=== PATIENT | female | born 1995 | race Caucasian/White ===

== ENCOUNTER 2022-07-30 10:27 | Emergency (ER) | payer MEDICARE, SELFPAY ==
[2022-07-30 10:46] VITALS: BP 117/68; PULSE 95; RESP 16; TEMP 36.7; O2SAT 100; BMI 29.2
--- NOTE | 2022-07-30 11:02 | XRR_ITS ---
PROCEDURE INFORMATION: Exam: XR Chest Exam date and time: 07/30/2022 12:20 PM Age: 27 years old Clinical indication: Cough and fever TECHNIQUE: Imaging protocol: Radiologic exam of the chest. Views: 1 view. COMPARISON: No relevant prior studies available. FINDINGS: Lungs: Unremarkable. No consolidation. Pleural spaces: Unremarkable. No pleural effusion. No pneumothorax. Heart/Mediastinum: Unremarkable. No cardiomegaly. Bones/joints: Unremarkable. XR/XR chest 1V portable [id number] IMPRESSION: No acute findings.
--- NOTE | 2022-07-30 11:26 | ED_ITS ---
HPI - Fever General: Chief Complaint: Fever Stated Complaint: throat hurts Time Seen by Provider: 07/30/22 11:00 History of Present Illness: Patient is a 27-year-old female that comes to the ED with fever. She is started having upper respiratory symptoms approximately 2 days ago. She reports having sore throat, dry cough, nasal drainage and congestion, headache, nausea and body aches. She had 1 episode of emesis today. Last night she had a temperature of 100.6. She says her son had symptoms like this earlier this week. Associated symptoms: Reports nasal congestion, nausea and vomiting; Deny abdominal pain, flank pain, chills, chest pain, diarrhea, dysuria or headache(s) Review of Systems Const: Reports: fever(s) and body aches; Denies: chills or fatigue Eyes: Denies: change in vision or eye discomfort ENMT: Reports: throat pain, nasal discharge and nasal congestion; Denies: odynophagia Card: Denies: chest pain, palpitations, edema, swelling of feet/ankles, dyspnea on exertion or orthopnea Resp: Reports: non-productive cough; Denies: dyspnea or productive cough GI: Reports: nausea and vomiting; Denies: abdominal pain, diarrhea, constipation or hematochezia : Denies: flank pain, dysuria or hematuria Musc: Denies: neck pain, back pain or extremity swelling Skin/Breast: Denies: rash or new lesions Neuro: Denies: headache(s), numbness in extremities or weakness in extremities PFS ED PFSH: Medical History No pertinent family history Surgical History No pertinent past surgical history Physical Exam Const: COMMON NORMALS: no acute distress, patient oriented x3 and alert GENERAL APPEARANCE: cooperative and comfortable HENMT: COMMON NORMALS: normocephalic HEAD & SCALP: normocephalic MOUTH: Normal oral and palatal mucosa present THROAT: posterior oropharynx normal and uvula midline Neck/C-Spine: COMMON NORMALS: supple GENERAL: Yes normal visual inspection Resp: COMMON NORMALS: normal respiratory effort, No retractions, No use of accessory muscles and clear to auscultation bilaterally AUSCULTATION: clear to auscultation bilaterally Cardio: COMMON NORMALS: regular rate, regular rhythm, S1 normal heart sound present, S2 normal heart sound present, No gallops present (Cardio), No clicks present (Cardio), No murmurs present (Cardio) and Peripheral pulses 2+ throughout RATE: regular rate RHYTHM: regular rhythm HEART SOUNDS: S1 normal heart sound present and S2 normal heart sound present PERIPHERAL PULSES: Peripheral pulses 2+ throughout GI: COMMON NORMALS: Normal to inspection, nondistended, normoactive bowel sounds present, Soft to palpation, non-tender and no masses PALPATION: Yes Soft to palpation : COMMON NORMALS: Yes no CVA tenderness BLADDER/KIDNEY EXAM: Yes no CVA tenderness Back/Pelvis: COMMON NORMALS: no CVA tenderness Extremity: COMMON NORMALS: normal to inspection Neuro: COMMON NORMALS: patient oriented x3 SENSORIUM/ORIENTATION: Yes alert GAIT: Yes Normal gait present Skin: GENERAL SKIN EXAM: dry skin Course Vital Signs: Vital signs: Vital Signs Temperature 98.0 F 07/30/22 10:46 Pulse Rate 95 07/30/22 10:46 Respiratory Rate 16 07/30/22 10:46 Blood Pressure 117/68 07/30/22 10:46 Pulse Oximetry 100 07/30/22 10:46 Oxygen Delivery Me thod 07/30/22 10:46 MDM - Fever Medical Decision Making Patient is a 27-year-old female that comes to the ED with fever. She is started having upper respiratory symptoms approximately 2 days ago. She reports having sore throat, dry cough, nasal drainage and congestion, headache, nausea and body aches. She had 1 episode of emesis today. Last night she had a temperature of 100.6. She says her son had symptoms like this earlier this week. Vital stable. Exam of patient is benign. Chest x-ray showed no acute findings. Influenza, COVID and strep are all negative. She is diagnosed with viral upper respiratory infection and was discharged home. Given this awareness of her sore throat syndrome with a prescription for Augmentin and then some Zofran for nause a. Told to follow-up with her PCP within the next week for reevaluation. Patient understood and agreed with plan. Lab Data I reviewed the patient's lab results. Radiology Impressions Chest X-Ray 07/30/22 11:02 IMPRESSION: No acute findings. Laboratory Results Influenza Type A Ag negative (Negative) 07/30/22 11:17 Influenza Type B Ag negative (Negative) 07/30/22 11:17 SARS-CoV-2 Ag (Rapid) Negative (Negative) 07/30/22 11:17 Group A Strep Rapid Negative (Negative) 07/30/22 11:17 Discharge Plan Discharge Patient Disposition: Home Clinical Impression: Viral URI Condition: Stable Prescriptions: New amoxicillin-pot clavulanate 500-125 mg tablet 1 tab PO BID 7 Days Qty: 14 0RF ondansetron 4 mg tablet,disintegrating 4 mg PO Q8H PRN (Reason: nausea and vomiting) Qty: 20 0RF Discharge Orders: Discharge ED (Routine); Ordered 07/30/22 Ordered By: Farooq Franklin Discharge Diet: Regular Discharge Activity: Increase activity as tolerated Patient Instructions: Upper Respiratory Infection (DC) Activity Restrictions/Additional Instructions: Follow-up with medical provider as directed in the next 7 to 10 days for reevaluation. Take medications as prescribed. Return to the ER or your medical provider if condition worsens. Please read and understand discharge instructions. Thank you for choosing [facility] for your healthcare needs today. Please realize this is an emergency room and that we are providing you with a medical screening exam and this may not be complete and all inclusive of all the testing and or work up that you may need to determine your ailment or severity of your illness. It is very important that you follow up as instructed or that you return to the Emergency Department should you have concerns or if your condition changes or worsens in any way. Coding Level of Care Code ED [employer] for Benito Lewis Exam Comprehensive
[2022-07-30 11:38] LABS: Rapid Strep A Test Negative (Negative)
[2022-07-30 11:47] LABS: Influenza A by IFA negative (Negative); Influenza B by IFA negative (Negative)
[2022-07-30 12:08] LABS: SARS Covid-2 Antigen Negative (Negative)
[2022-07-30] MEDS: ondansetron 4 MG Tablet PO (12:39)
[2022-07-30] MEDS: acetaminophen 500 mg Tablet 1000 MG PO (12:39)
== END 2022-07-30 12:40 | disposition home or self-care (01) ==
PROVIDERS: Emergency Provider Physician Assistant
DX: J06.9 Acute upper respiratory infection, unspecified (principal); Z20.822 Contact with and (suspected) exposure to COVID-19
CPT/HCPCS: 71045; 87081; 87426; 87804; 87880; 99284; Q0162

== ENCOUNTER → 2023-05-12 16:00 | Outpatient (BNVA) | payer MEDICARE, SELFPAY | PROVIDERS: Visit Provider Registered Nurse Neonatal Intensive Care | DX: R10.2 Pelvic and perineal pain (principal); N92.6 Irregular menstruation, unspecified | CPT/HCPCS: 81000; 81025; 87077; 87086; 87184; 87491; 87591 ==

== ENCOUNTER 2024-05-28 09:38 | Emergency (ER) | payer MEDICARE, SELFPAY ==
[2024-05-28 09:39] VITALS: BP 115/74; PULSE 75; RESP 16; TEMP 37.1; O2SAT 97; BMI 27.4
[2024-05-28 09:54] LABS: Basophils % 0.3 %; Eosinophils # 0.1 10^3/uL (0.0-0.8); Eosinophils % 1.4 %; Hematocrit 43.8 % (36-47); Lymphocytes # 1.4 10^3/uL (0.8-4.8); Lymphocytes % 20.8 %; Mean Corpuscular HGB Conc 33.3 g/dL (30-55); Mean Corpuscular Hemoglobin 29.7 pg (27-33); Mean Platelet Volume 11.3 fL (7.4-10.4); Monocytes # 0.5 10^3/uL (0.2-0.9); Monocytes % 7.6 %; Neutrophils # 4.82 10^3/uL (1.8-7.7); Neutrophils % 69.6 %; Nucleated Red Blood Cells % 0 %; Platelet Count 253 10^3/cmm (157-399); Red Blood Count 4.92 10^6/uL (3.85-5.65); Red Cell Distribution Width 13.2 % (12.1-15.1); White Blood Count 6.93 10^3/uL (3.29-11.43)
--- NOTE | 2024-05-28 10:10 | CTR_ITS ---
PROCEDURE INFORMATION: Exam: CT Abdomen And Pelvis With Contrast Exam date and time: 05/28/2024 11:40 AM Age: 29 years old Clinical indication: Abdominal pain; Localized; Right lower quadrant (rlq); Additional info: Reported abdominal pain on the right side TECHNIQUE: Imaging protocol: Computed tomography of the abdomen and pelvis with contrast. Radiation optimization: All CT scans at this facility use at least one of these dose optimization techniques: automated exposure control; mA and/or kV adjustment per patient size (includes targeted exams where dose is matched to clinical indication); or iterative reconstruction. Contrast material: OMNI 350; Contrast volume: 100 ml; Contrast route: INTRAVENOUS (IV); COMPARISON: CR XR chest 1V portable [id number] 07/30/2022 12:20 PM RADIATION DOSE METRICS: Total DLP (mGy-cm): 464.93 FINDINGS: Liver: Normal. No mass. Gallbladder and biliary ducts: Normal. No calcified stones. No ductal dilation. Pancreas: Normal. No ductal dilation. Spleen: Normal. No splenomegaly. Adrenal glands: Bilateral adrenal calcification without mass may represent chronic sequela of prior hemorrhage or tuberculosis. Kidneys and ureters: Normal. No hydronephrosis. Stomach and bowel: No bowel dilatation to suggest obstruction. No evidence of mucosal thickening. Appendix: No evidence of appendicitis. Intraperitoneal space: Small volume free pelvic fluid is likely physiologic. No free air or focal well organized fluid collection. Vasculature: Unremarkable. No abdominal aortic aneurysm. Lymph nodes: Unremarkable. No enlarged lymph nodes. Urinary bladder: Unremarkable as visualized. Reproductive: Crenulated left ovarian corpus luteum. Otherwise unremarkable as visualized. Bones/joints: No acute fracture. Slight dextroconvex spinal curvature. Mild degenerative changes along the spine. Mildly expansile fluid density at the sacral spinal canal with sacral remodeling greatest at the S3 level. Soft tissues: Small fat containing umbilical hernia. CT/CT abdomen pelvis w con* [id number] IMPRESSION: 1. No acute findings. Specifically, no evidence of acute appendicitis or other findings to explain right lower quadrant pain. 2. Mildly expansile fluid density at the sacral spinal canal with sacral remodeling greatest at the S3 level. Consider nonemergent MRI. 3. Additional chronic and incidental findings as above, to include bilateral adrenal calcification and crenulated left ovarian corpus luteum with small volume free pelvic fluid that is likely physiologic.
[2024-05-28 10:12] LABS: Alanine Aminotransferase 31 U/L (0-33); Albumin Level 4.4 g/dL (3.5-5.2); Alkaline Phosphatase 76 U/L (35-105); Anion Gap 15.7 (5-19); Aspartate Amino Transferase 27 U/L (0-32); Blood Urea Nitrogen 15 mg/dL (6-20); Calcium 9.3 mg/dL (8.5-10.5); Carbon Dioxide 24 mmol/L (22-29); Chloride 104 mmol/L (98-107); Creatinine Clr Calc Pharmacy 79.5889; Globulin 3.5 g/dL (1.3-4.6); Glomerular Filtration Rate 64.7 mL/min (90-130); Glucose 98 mg/dL (65-115); Lipase 26 U/L (13-60); Osmolality Calculated 291 mOsm/kg (285-295); Potassium 3.7 mmol/L (3.5-5.1); Sodium 140 mmol/L (136-145); Total Bilirubin 0.4 mg/dL (0.15-1.2); Total Protein 7.9 g/dL (6.6-8.7)
--- NOTE | 2024-05-28 10:12 | ED_ITS ---
HPI - Abdominal Pain 2 General: Chief Complaint: Abdominal Pain Stated Complaint: abd pain Time Seen by Provider: 05/28/24 10:06 History of Present Illness: 29-year-old female presents emergency de partment chief complaint of having developed right-sided abdominal pain after eating a hot pocket just prior to arrival patient has no prior history of any abdominal surgeries report reports of some moderate nausea with this patient had reported recent marijuana use she denies any recent fevers or chills or any other associated symptoms. Patient was provided Toradol and Zofran prior to my arrival by EMS patient appears quite comfortable on my exam resting comfortably which is difficult to arouse for my assessment. Associated Symptoms: Reports nausea; Denies chills, fever(s) and vomiting Related Data Previous Rx's Medication Instructions Recorded nitrofurantoin 100 mg PO BID 5 days #10 caps 05/12/23 monohydrate/macrocrystals 100 mg capsule (Macrobid) doxycycline hyclate 100 mg tablet 100 mg PO BID 7 days #14 tabs 05/15/23 metronidazole 500 mg tablet 500 mg PO BID 7 days #14 tabs 05/15/23 ondansetron 4 mg disintegrating 4 mg PO TID PRN nausea and 05/28/24 tablet vomiting 4 days #14 tabs pantoprazole 40 mg tablet,delayed 40 mg PO BID 10 days #20 tabs 05/28/24 release (Protonix) Allergies Allergy/AdvReac Type Severity Reaction Status Date / Time No Known Allergies Allergy Verified 05/12/23 15:58 Review of Systems 2 General: Reports: 10 or more systems reviewed and unremarkable except in HPI and below Const: Denies: fever(s), chills, fatigue or malaise Eyes: Denies: change in vision or blurry vision Card: Denies: chest pain or palpitations Resp: Denies: dyspnea or productive cough GI: Reports: abdominal pain and nausea; Denies: vomiting : Denies: flank pain Musc: Denies: extremity pain or extremity swelling Skin/Breast: Denies: rash or pruritus Neuro: Denies: headache(s) Psych: Denies: anxiety or depression [place]/Lymph: Denies: easy bleeding All/Imm: Denies: urticaria, throat swelling or facial swelling PFSH ED 2 PFSH: Medical History No pertinent family history Surgical History No pertinent past surgical history Physical Exam 2 Const: COMMON NORMALS: no acute distress, patient oriented x3, healthy appearing and well nourished (Patient appears nontoxic appears in no obvious acute distress.) HENMT: COMMON NORMALS: normocephalic and atraumatic HEAD & SCALP: n ormocephalic and atraumatic Eye: COMMON NORMALS: Equal, round and reactive pupils present and EOMs intact bilaterally PUPIL: Yes Equal, round and reactive pupils present Neck/C-Spine: COMMON NORMALS: full ROM, supple and no JVD Lymph: LYMPHATIC: no lymphadenopathy noted Chest: COMMONS NORMALS: normal inspection of the chest and normal palpation of entire chest wall Resp: COMMON NORMALS: normal respiratory effort, No retractions and clear to auscultation bilaterally EFFORT & INSPECTION: Yes able to speak in complete sentences and Yes symmetric chest movement AUSCULTATION: clear to auscultation bilaterally Cardio: COMMON NORMALS: no JVD, regular rate and regular rhythm RATE: r egular rate RHYTHM: regular rhythm GI: COMMON NORMALS: Normal to inspection, nondistended, normoactive bowel sounds present; negative for Soft to palpation and negative for non-tender (Reported pain appreciated right side abdomen no guarding or rebound noted) INSPECTION: Yes normal to inspection PALPATION: No Soft to palpation : COMMON NORMALS: Yes no CVA tenderness BLADDER/KIDNEY EXAM: Yes no CVA tenderness Back/Pelvis: COMMON NORMALS: no CVA tenderness Extremity: COMMON NORMALS: normal to inspection and full ROM Neuro: COMMON NORMALS: patient oriented x3, CN's II-XII intact bilaterally, moves all extremities and no focal motor deficits Psych: COMMON NORMALS: mental status grossly normal, Normal thought process present, cooperative and normal affect THOUGHT PROCESS: Normal thought process present Skin: COMMON NORMALS: no rashes or lesions noted GENERAL SKIN EXAM: no rashes or lesions noted Course 2 Vital Signs: Vital signs: Vital Signs Temperature 98.7 F 05/28/24 09:39 Pulse Rate 56 L 05/28/24 12:35 Respiratory Rate 18 05/28/24 12:35 Blood Pressure 112/69 05/28/24 12:35 Pulse Oximetry 100 05/28/24 12:35 Oxygen Delivery Me thod Room Air 05/28/24 12:35 MDM - Abdominal Pain Medical Decision Making Due to patient's symptoms and condition IV was established lab work imaging obtained we will continue to follow patient's lab work imaging came back reassuring except for being positive for THC patient has had no active emesis throughout her stay in emergency department she is stable for discharge home advised further follow-up with primary care in 3 to 5 days in which to return the interim if any of her symptoms persist or worse Lab Data 05/28/24 09:23 05/28/24 09:23 Labs/Radiology: Radiology Impressions Abdomen/Pelvis CT 05/28/24 10:10 IMPRESSION: 1. No acute findings. Specifically, no evidence of acute appendicitis or other findings to explain right lower quadrant pain. 2. Mildly expansile fluid density at the sacral spinal canal with sacral remodeling greatest at the S3 level. Consider nonemergent MRI. 3. Additional chronic and incidental findings as above, to include bilateral adrenal calcification and crenulated left ovarian corpus luteum with small volume free pelvic fluid that is likely physiologic. Laboratory Results WBC 6.93 10^3/uL (3.29-11.43) 05/28/24 09:23 RBC 4.92 10^6/uL (3.85-5.65) 05/28/24 09:23 Hgb 14.60 g/dL (11.27-16.99) 05/28/24 09:23 Hct 43.8 % (36-47) 05/28/24 09:23 MCV 89.0 fl (85-98) 05/28/24 09:23 MCH 29.7 pg (27-33) 05/28/24 09:23 MCHC 33.3 g/dL (30-55) 05/28/24 09:23 RDW 13.2 % (12.1-15.1) 05/28/24 09:23 Plt Count 253 10^3/cmm (157-399) 05/28/24 09:23 MPV 11.3 fL (7.4-10.4) H 05/28/24 09:23 Neut % (Auto) 69.6 % 05/28/24 09:23 Lymph % (Auto) 20.8 % 05/28/24 09:23 [place] % (Auto) 7.6 % 05/28/24 09:23 Eos % (Auto) 1.4 % 05/28/24 09:23 Baso % (Auto) 0.3 % 05/28/24 09:23 Neut # (Auto) 4.82 10^3/uL (1.8-7.7) 05/28/24 09:23 Lymph # (Auto) 1.4 10^3/uL (0.8-4.8) 05/28/24 09:23 [place] # (Auto) 0.5 10^3/uL (0.2-0.9) 05/28/24 09:23 Eos # (Auto) 0.1 10^3/uL (0.0-0.8) 05/28/24 09:23 Baso # (Auto) 0.0 10^3/uL (0.0-0.1) 05/28/24 09:23 Nucleated RBC % (auto) 0 % 05/28/24 09: Nucleated RBCs # 0.0 /100WBC 05/28/24 09:23 Sodium 140 mmol/L (136-145) 05/28/24 09:23 Potassium 3.7 mmol/L (3.5-5.1) 05/28/24 09:23 Chloride 104 mmol/L (98-107) 05/28/24 09:23 Carbon Dioxide 24 mmol/L (22-29) 05/28/24 09:23 Anion Gap 15.7 (5-19) 05/28/24 09:23 BUN 15 mg/dL (6-20) 05/28/24 09:23 Creatinine 1.0 mg/dL (0.5-0.9) H 05/28/24 09:23 GFR Calculation 64.7 mL/min (90-130) L 05/28/24 09:23 Glucose 98 mg/dL (65-115) 05/28/24 09:23 Calculated Osmolality 291 mOsm/kg (285-295) 05/28/24 09:23 Calcium 9.3 mg/dL (8.5-10.5) 05/28/24 09:23 Total Bilirubin 0.4 mg/dL (0.15-1.2) 05/28/24 09:23 AST 27 U/L (0-32) 05/28/24 09:23 ALT 31 U/L (0-33) 05/28/24 09:23 Alkaline Phosphatase 76 U/L (35-105) 05/28/24 09:23 Total Protein 7.9 g/dL (6.6-8.7) 05/28/24 09: Albumin 4.4 g/dL (3.5-5.2) 05/28/24 09: Globulin 3.5 g/dL (1.3-4.6) 05/28/24 09: Lipase 26 U/L (13-60) 05/28/24 09:23 HCG, Qual Negative (Negative) 05/28/24 11:04 Urine Color Yellow (Yellow) 05/28/24 11:04 Urine Appearance Clear (CLEAR) 05/28/24 11:04 Urine pH 5.5 (5-7) 05/28/24 11:04 Ur Specific [place] 1.029 (1.005-1.030) 05/28/24 11:04 Urine Protein Trace (Negative) A 05/28/24 11:04 Urine Glucose (UA) Negative (Normal) 05/28/24 11:04 Urine Ketones Negative (Negative) 05/28/24 11:04 Urine Blood Negative (Negative) 05/28/24 11:04 Urine Nitrate Negative (Negative) 05/28/24 11:04 Urine Bilirubin Negative (Negative) 05/28/24 11:04 Urine Urobilinogen 1.0 mg/dL (Negative) 05/28/24 11:04 Ur Leukocyte Esterase Trace (Negative) A 05/28/24 11:04 Urine RBC 0-2 /hpf (0-2) 05/28/24 11:04 Urine WBC 6-10 /hpf (0-5) 05/28/24 11:04 Ur Squamous Epith Cells 0-5 /hpf (0-5) 05/28/24 11:04 Amorphous Sediment Not Reportable 05/28/24 11:04 Urine Bacteria Trace /hpf (NONE) 05/28/24 11:04 Hyaline Casts 0.40 /lpf 05/28/24 11:04 Urine Opiates Screen Cancelled 05/28/24 11:00 Urine Opiates Screen Negative ng/mL (Negative) 05/28/24 11:00 Ur Barbiturates Screen Cancelled 05/28/24 11:00 Ur Barbiturates Screen Negative ng/mL (Negative) 05/28/24 11:00 Ur Phencyclidine Scrn Cancelled 05/28/24 11:00 Ur Phencyclidine Scrn Negative ng/mL (Negative) 05/28/24 11:00 Ur Amphetamines Screen Cancelled 05/28/24 11:00 Ur Amphetamines Screen Negative ng/mL (Negative) 05/28/24 11:00 U Benzodiazepines Scrn Cancelled 05/28/24 11:00 U Benzodiazepines Scrn Negative ng/mL (Negative) 05/28/24 11:00 Urine Cocaine Screen Cancelled 05/28/24 11:00 Urine Cocaine Screen Negative ng/mL (Negative) 05/28/24 11:00 U Marijuana (THC) Screen Cancelled 05/28/24 11:00 U Marijuana (THC) Screen Positive ng/mL (Negative) H 05/28/24 11:00 Ethyl Alcohol < 10 mg/dL (0-10) 05/28/24 09:23 XR interpretation done by ED provider, pending radiology final review Discharge Plan Discharge Patient Disposition: Home Clinical Impression: Right-sided abdominal pain of unknown cause Nausea & vomiting Qualifiers: Vomiting type: unspecified Qualified Code(s): R11.2 - Nausea with vomiting, unspecified Condition: Stable Prescriptions: New ondansetron 4 mg tablet,disintegrating 4 mg PO TID PRN (Reason: nausea and vomiting) 4 Days Qty: 14 0RF pantoprazole [Protonix] 40 mg tablet,delayed release (DR/EC) 40 mg PO BID 10 Days Qty: 20 0RF No Action nitrofurantoin monohyd/m-cryst [Macrobid] 100 mg capsule 100 mg PO BID 5 Days Qty: 10 0RF Rx Instructions: must administer with a meal/food doxycycline hyclate 100 mg tablet 100 mg PO BID 7 Days Qty: 14 0RF metronidazole 500 mg tablet 500 mg PO BID 7 Days Qty: 14 0RF Discharge Orders: Discharge ED (Routine); Ordered 05/28/24 Ordered By: Jer Eric Patient Instructions: Acute Nausea and Vomiting (DC), Abdominal Pain (ED) Activity Restrictions/Additional Instructions: Follow-up with your primary care doctor in 3 to 5 days, please take medications as prescribed please return the interim if any of your symptoms persist or worsen your CT imaging and lab work came back inconclusive was contributing to your abdominal pain however you are not found to have any gallbladder disease or acute appendicitis. Coding Level of Care Code ED [employer] for Benito Lewis
[2024-05-28 10:36] LABS: Alcohol Level < 10 mg/dL (0-10)
[2024-05-28] MEDS: sodium chloride 0.9% 1,000 ML 999 ML IV (10:59)
[2024-05-28 11:11] LABS: Bilirubin Urine Negative (Negative); Blood Urine Negative (Negative); Glucose Urine UA Negative (Normal); Ketones Urine Negative (Negative); Leukocyte Esterase Urine Trace (Negative); Nitrate Urine Negative (Negative); Protein Urine Trace (Negative); Specific Gravity, Urine 1.029 (1.005-1.030); Urine Appearance Clear (CLEAR); Urine Color Yellow (Yellow); pH Urine 5.5 (5-7)
[2024-05-28 11:14] LABS: HCG Qualitative Urine. Negative (Negative)
[2024-05-28 11:16] LABS: Add Urine Microscopic? YES; Bacteria Urine Trace /hpf; RBC Urine 0-2 /hpf (0-2); Squamous Epithelial Cell Urine 0-5 /hpf (0-5)
[2024-05-28 11:21] LABS: Amphetamines Screen Urine Negative (Negative); Barbiturates Screen Urine Negative (Negative); Benzodiazepines Screen Urine Negative (Negative); Cocaine Screen Urine Negative (Negative); Opiate Screen Urine Negative (Negative); PCP Screen Urine Negative (Negative); THC Screen Urine Positive (Negative)
[2024-05-28] MEDS: iohexol 350 mg/mL 500 mL Btl (per mL) IV (11:44)
[2024-05-28 12:35] VITALS: BP 112/69; PULSE 56; RESP 18; O2SAT 100
[2024-05-28 14:00] VITALS: BP 112/69; PULSE 56; O2SAT 100
== END 2024-05-28 13:57 | disposition home or self-care (01) ==
PROVIDERS: Emergency Medicine; Emergency Provider Emergency Medicine
DX: R10.9 Unspecified abdominal pain (principal); R11.2 Nausea with vomiting, unspecified
CPT/HCPCS: 74177; 80053; 80306; 80307; 81001; 81025; 83690; 85025; 99285; J7030

== ENCOUNTER 2024-06-03 15:08 | Inpatient (IN) | payer MEDICARE, SELFPAY ==
[2024-06-03 15:14] VITALS: BP 146/93; PULSE 81; RESP 18; TEMP 36.8; O2SAT 98
--- NOTE | 2024-06-03 15:36 | ED.C_ITS ---
HPI - Psych 2 General: Chief Complaint: Psychiatric Symptoms Stated Complaint: SI Time Seen by Provider: 06/03/24 15:10 History of Present Illness: Patient presents to the ER with suicidal ideation. Patient presents from the crisis center. Patient says she is her plan is to hang herself in the [place] around her car into traffic. Patient is tearful. Patient is homeless and just does not know what to do with herself. Patient is not on any medicine currently. Patient is not allergic to any medicine. Patient is deaf but has hearing aids and can hear some. Related Data Previous Rx's Medication Instructions Recorded nitrofurantoin 100 mg PO BID 5 days #10 caps 05/12/23 monohydrate/macrocrystals 100 mg capsule (Macrobid) doxycycline hyclate 100 mg tablet 100 mg PO BID 7 days #14 tabs 05/15/23 metronidazole 500 mg tablet 500 mg PO BID 7 days #14 tabs 05/15/23 pantoprazole 40 mg tablet,delayed 40 mg PO BID 10 days #20 tabs 05/28/24 release (Protonix) Allergies Allergy/AdvReac Type Severity Reaction Status Date / Time No Known Allergies Allergy Verified 05/12/23 15:58 Review of Systems 2 General: Reports: 10 or more systems reviewed and unremarkable except in HPI and below PFSH ED 2 PFSH: Medical History No pertinent family history Surgical History No pertinent past surgical history Physical Exam 2 Const: COMMON NORMALS: no acute distress, average body habitus, patient oriented x3, no limitations, healthy appearing, alert and well nourished HENMT: COMMON NORMALS: normocephalic, atraumatic, hearing grossly normal bilaterally, external ears normal, Normal external nose present and moist oral mucous membranes HEAD & SCALP: normocephalic and atraumatic NOSE: Normal external nose present EXTERNAL EAR: Yes external ears normal Neck/C-Spine: COMMON NORMALS: full ROM, no lymphadenopathy, supple, no meningeal signs, no JVD and Thyroid normal THYROID: Thyroid normal Chest: COMMONS NORMALS: normal inspection of the chest and normal palpation of entire chest wall Resp: COMMON NORMALS: normal respiratory effort, No retractions, No use of accessory muscles and clear to auscultation bilaterally AUSCULTATION: clear to auscultation bilaterally Cardio: COMMON NORMALS: no JVD, regular rate, regular rhythm, S1 normal heart sound present, S2 normal heart sound present, No gallops present (Cardio), No clicks present (Cardio), No murmurs present (Cardio) and No rub (Cardio) R ATE: regular rate RHYTHM: regular rhythm HEART SOUNDS: S1 normal heart sound present and S2 normal heart sound present GI: COMMON NORMALS: Normal to inspection, nondistended, normoactive bowel sounds present, Soft to palpation, non-tender, No hepatosplenomegaly present and no masses PALPATION: Yes Soft to palpation and Yes No hepatosplenomegaly present Neuro: COMMON NORMALS: patient oriented x3 SENSORIUM/ORIENTATION: Yes alert MENINGEAL SIGNS: Yes no meningeal signs Course 2 Vital Signs: Vital signs: Vital Signs Temperature 98.2 F 06/03/24 15:14 Pulse Rate 81 06/03/24 15:14 Respiratory Rate 18 06/03/24 15:14 Blood Pressure 146/93 06/03/24 15:14 Pulse Oximetry 98 06/03/24 15:14 Oxygen Delivery Me thod Room Air 06/03/24 15:14 MDM - Psych Medical Decision Making Patient be medically cleared by lab work and physical exam, once medically clear, Dr. Bess will be consulted, Dr. Bess was consulted and agreed to place patient in MPU for further evaluation and treatment. Per nursing there is 1 female bed left. Medical Records I reviewed the patient's medical records. Lab Data I reviewed the patient's lab results. 06/03/24 16:12 06/03/24 16:12 Laboratory Results WBC 8.84 10^3/uL (3.29-11.43) 06/03/24 16:12 RBC 4.75 10^6/uL (3.85-5.65) 06/03/24 16:12 Hgb 14.10 g/dL (11.27-16.99) 06/03/24 16:12 Hct 41.9 % (36-47) 06/03/24 16:12 MCV 88.2 fl (85-98) 06/03/24 16:12 MCH 29.7 pg (27-33) 06/03/24 16:12 MCHC 33.7 g/dL (30-55) 06/03/24 16:12 RDW 12.9 % (12.1-15.1) 06/03/24 16:12 Plt Count 293 10^3/cmm (157-399) 06/03/24 16:12 MPV 10.9 fL (7.4-10.4) H 06/03/24 16:12 Neut % (Auto) 71.4 % 06/03/24 16:12 Lymph % (Auto) 21.2 % 06/03/24 16:12 Sibley % (Auto) 5.5 % 06/03/24 16:12 Eos % (Auto) 1.0 % 06/03/24 16:12 Baso % (Auto) 0.7 % 06/03/24 16:12 Neut # (Auto) 6.31 10^3/uL (1.8-7.7) 06/03/24 16:12 Lymph # (Auto) 1.9 10^3/uL (0.8-4.8) 06/03/24 16:12 Sibley # (Auto) 0.5 10^3/uL (0.2-0.9) 06/03/24 16:12 Eos # (Auto) 0.1 10^3/uL (0.0-0.8) 06/03/24 16:12 Baso # (Auto) 0.1 10^3/uL (0.0-0.1) 06/03/24 16:12 Nucleated RBC % (auto) 0 % 06/03/24 16:12 Nucleated RBCs # 0.0 /100WBC 06/03/24 16:12 Sodium 136 mmol/L (136-145) 06/03/24 16:12 Potassium 3.9 mmol/L (3.5-5.1) 06/03/24 16:12 Chloride 103 mmol/L (98-107) 06/03/24 16:12 Carbon Dioxide 23 mmol/L (22-29) 06/03/24 16:12 Anion Gap 13.9 (5-19) 06/03/24 16:12 BUN 19 mg/dL (6-20) 06/03/24 16:12 Creatinine 0.9 mg/dL (0.5-0.9) 06/03/24 16:12 GFR Calculation 73.0 mL/min (90-130) L 06/03/24 16:12 Glucose 85 mg/dL (65-115) 06/03/24 16:12 Calculated Osmolality 284 mOsm/kg (285-295) L 06/03/24 16:12 Calcium 9.2 mg/dL (8.5-10.5) 06/03/24 16:12 Total Bilirubin 0.5 mg/dL (0.15-1.2) 06/03/24 16:12 AST 21 U/L (0-32) 06/03/24 16:12 ALT 23 U/L (0-33) 06/03/24 16:12 Alkaline Phosphatase 70 U/L (35-105) 06/03/24 16:12 Total Protein 7.9 g/dL (6.6-8.7) 06/03/24 16:12 Albumin 4.5 g/dL (3.5-5.2) 06/03/24 16:12 Globulin 3.4 g/dL (1.3-4.6) 06/03/24 16:12 HCG, Qual Negative (Negative) 06/03/24 15:22 Urine Color Yellow (Yellow) 06/03/24 15:22 Urine Appearance Cloudy (CLEAR) A 06/03/24 15:22 Urine pH 5.5 (5-7) 06/03/24 15:22 Ur Specific [place] 1.036 (1.005-1.030) H 06/03/24 15:22 Urine Protein Trace (Negative) A 06/03/24 15:22 Urine Glucose (UA) Negative (Normal) 06/03/24 15:22 Urine Ketones Trace (Negative) 06/03/24 15:22 Urine Blood Negative (Negative) 06/03/24 15:22 Urine Nitrate Negative (Negative) 06/03/24 15:22 Urine Bilirubin Negative (Negative) 06/03/24 15:22 Urine Urobilinogen 1.0 mg/dL (Negative) 06/03/24 15:22 Ur Leukocyte Esterase 1+ (Negative) A 06/03/24 15:22 Urine RBC 0-2 /hpf (0-2) 06/03/24 15:22 Urine WBC 6-10 /hpf (0-5) 06/03/24 15:22 Ur Squamous Epith Cells 6-10 /hpf (0-5) 06/03/24 15:22 Amorphous Sediment Not Reportable 06/03/24 15:22 Urine Bacteria 2+ /hpf (NONE) H 06/03/24 15:22 Hyaline Casts 4.11 /lpf 06/03/24 15:22 Salicylates 0.5 mg/dL (3-10) L 06/03/24 16:12 Urine Opiates Screen Negative ng/mL (Negative) 06/03/24 15:22 Acetaminophen < 5.0 ug/mL (10-30) L 06/03/24 16:12 Ur Barbiturates Screen Negative ng/mL (Negative) 06/03/24 15:22 Ur Phencyclidine Scrn Negative ng/mL (Negative) 06/03/24 15:22 Ur Amphetamines Screen Negative ng/mL (Negative) 06/03/24 15:22 U Benzodiazepines Scrn Negative ng/mL (Negative) 06/03/24 15:22 Urine Cocaine Screen Negative ng/mL (Negative) 06/03/24 15:22 U Marijuana (THC) Screen Positive ng/mL (Negative) H 06/03/24 15:22 Ethyl Alcohol < 10 mg/dL (0-10) 06/03/24 16:12 No radiology studies performed this visit Discharge Plan Discharge Patient Disposition: Admitted As Inpatient Clinical Impression: Suicidal ideation Condition: Stable Coding Level of Care Code ED Computing Consultant for Benito Lewis
[2024-06-03 15:38] LABS: HCG Qualitative Urine. Negative (Negative)
[2024-06-03] MEDS: famotidine 20 mg Tablet 40 MG PO (15:59)
[2024-06-03 16:03] LABS: Bilirubin Urine Negative (Negative); Blood Urine Negative (Negative); Glucose Urine UA Negative (Normal); Ketones Urine Trace (Negative); Leukocyte Esterase Urine 1+ (Negative); Nitrate Urine Negative (Negative); Protein Urine Trace (Negative); Urine Appearance Cloudy (CLEAR); Urine Color Yellow (Yellow); pH Urine 5.5 (5-7)
[2024-06-03 16:06] LABS: Add Urine Microscopic? YES; Bacteria Urine 2+ /hpf; Hyaline Casts Urine 4.11 /lpf; RBC Urine 0-2 /hpf (0-2)
[2024-06-03 16:07] LABS: Specific Gravity, Urine 1.036 (1.005-1.030)
[2024-06-03 16:08] LABS: Add Urine Culture? Yes
[2024-06-03 16:10] LABS: Amphetamines Screen Urine Negative (Negative); Barbiturates Screen Urine Negative (Negative); Benzodiazepines Screen Urine Negative (Negative); Cocaine Screen Urine Negative (Negative); Opiate Screen Urine Negative (Negative); PCP Screen Urine Negative (Negative); THC Screen Urine Positive (Negative)
[2024-06-03 16:26] LABS: Basophils # 0.1 10^3/uL (0.0-0.1); Basophils % 0.7 %; Eosinophils # 0.1 10^3/uL (0.0-0.8); Hematocrit 41.9 % (36-47); Lymphocytes # 1.9 10^3/uL (0.8-4.8); Lymphocytes % 21.2 %; Mean Corpuscular HGB Conc 33.7 g/dL (30-55); Mean Corpuscular Hemoglobin 29.7 pg (27-33); Mean Corpuscular Volume 88.2 fl (85-98); Mean Platelet Volume 10.9 fL (7.4-10.4); Monocytes # 0.5 10^3/uL (0.2-0.9); Monocytes % 5.5 %; Neutrophils # 6.31 10^3/uL (1.8-7.7); Neutrophils % 71.4 %; Nucleated Red Blood Cells % 0 %; Platelet Count 293 10^3/cmm (157-399); Red Blood Count 4.75 10^6/uL (3.85-5.65); Red Cell Distribution Width 12.9 % (12.1-15.1); White Blood Count 8.84 10^3/uL (3.29-11.43)
[2024-06-03 16:54] LABS: Alanine Aminotransferase 23 U/L (0-33); Albumin Level 4.5 g/dL (3.5-5.2); Alkaline Phosphatase 70 U/L (35-105); Anion Gap 13.9 (5-19); Aspartate Amino Transferase 21 U/L (0-32); Blood Urea Nitrogen 19 mg/dL (6-20); Calcium 9.2 mg/dL (8.5-10.5); Carbon Dioxide 23 mmol/L (22-29); Chloride 103 mmol/L (98-107); Globulin 3.4 g/dL (1.3-4.6); Glucose 85 mg/dL (65-115); Osmolality Calculated 284 mOsm/kg (285-295); Potassium 3.9 mmol/L (3.5-5.1); Salicylate 0.5 mg/dL (3-10); Sodium 136 mmol/L (136-145); Total Bilirubin 0.5 mg/dL (0.15-1.2); Total Protein 7.9 g/dL (6.6-8.7)
[2024-06-03 16:56] LABS: Acetaminophen < 5.0 ug/mL (10-30); Alcohol Level < 10 mg/dL (0-10)
[2024-06-03 18:00] VITALS: BP 148/91; PULSE 83; RESP 17; O2SAT 98
--- NOTE | 2024-06-03 18:54 | PC.NURSE ---
Danielle BELLO and this preceptor assumed care of patient from Catherine BELLO at shift change.
[2024-06-03 19:19] VITALS: BP 100/66; PULSE 93; O2SAT 98
--- NOTE | 2024-06-03 19:40 | PC.NURSE ---
Report called to Yancy BELLO in NPU. All questions and concerns were addressed at time of report.
--- NOTE | 2024-06-03 19:40 | PC.NURSE ---
Dr Anderson and Wash Worker Opal BELLO notified that NPU requested for patient to be placed on [id number] prior to transfer to NPU.
--- NOTE | 2024-06-03 19:48 | PC.NURSE ---
96 Hour Involuntary Hold Patient Rights have been read to the patient and a copy of the same has been provided to her. Patient verbalizes understanding of Rights. Publicity Writer Xiomy Byrne was present at bedside at the time of Rights.
[2024-06-03 20:40] VITALS: BP 100/66; PULSE 93; O2SAT 98
[2024-06-03] MEDS: trazodone 50 mg Tablet PO (21:33)
[2024-06-03 21:58] VITALS: BP 116/76; PULSE 77; RESP 18; TEMP 36.6; O2SAT 98
--- NOTE | 2024-06-04 02:39 | PC.NURSE ---
Patient stated she was not on any home medications.
[2024-06-04 06:00] VITALS: BP 109/71; PULSE 67; RESP 16; O2SAT 98
[2024-06-04] MEDS: hyDROXYzine 25 mg Capsule 50 MG PO (08:22)
--- NOTE | 2024-06-04 08:27 | PC.NURSE ---
PT UP PACING THE HALLS THIS AM. STATES SHE IS ANXIOUS RATING ANXIETY 9/10. MED NURSE TO GIVE ANXIETY MEDICATIONS. RATES DEPRESSION 10/10. PT IS NOTED TO BE HARD OF HEARING AND SPEAKS UNCLEAR. DENIES PAIN. DENIES SI/HI AND VH AT THIS TIME. ENDORSES HEARING VOICES THAT ARE NEGATIVE IN NATURE BUT CAN NOT ELABORATE ON WHAT SHE IS ACTUALLY HEARING. ONLY STATING THEY ARE ALL NEGATIVE. REPORTS SHE SLEPT WELL LAST NIGHT. OBSERVED TO HAVE FLAT AFFECT AND DEPRESSED MOOD. ALL QUESTIONS AND SUPPORT VOICED.
[2024-06-04 13:59] VITALS: BP 107/71; PULSE 94; RESP 17; TEMP 36.6; O2SAT 98
--- NOTE | 2024-06-04 14:03 | W.PM.NPUH&PS ---
Providers/Chief Complaint Admitting Physician: Braden Arreguin MD Chief Complaint: SI HPI NPU History of Present Illness Radha Lea is a 29 year old female with no previous history of inpatient psychiatric hospitalization who presented to the emergency department with complaints of suicidal ideation with a desire to hang herself in the [place] or run car into traffic. The patient was admitted to the neuropsychiatric unit for further evaluation and treatment. Patient reports that she has been feeling depressed for several months. She endorses crying more frequently. She endorsed anhedonia. She reports having problems with concentration and reports feeling depressed with suicidal thoughts having been more prominent over the past week. She reported no history of drug or alcohol use. She reports that she has been homeless since she left the home of her ex-boyfriend in April 18 secondary to his constant criticism and described her relationship with him as being toxic. The patient had reported that she feels that she has been out of control. She states that she has been able to sleep at some friends couches but reports that she is also slept in her car for many nights over the past month. 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 The patient denies any history of hallucinations. She denies any manic symptoms. She reports often feeling guilty and reports feeling controlled. She states that she has had more problems with managing her anxiety and describes being easily frustrated. She also endorses a loss of appetite along with difficulty falling asleep with frequent awakenings at night. She denies any illicit drug use or alcohol use. The patient reported having no job and no 1 to help her. She reports I feel lost and confused . Patient had reported that she frequently hears inside of her head the presence of her mother's voice stating that she had been accomplishing nothing in her life. Inpatient psychiatric history: None reported Outpatient psychiatric history: She reports no history of routine monthly or weekly psychotherapy but states that she has come into the crisis unit at the behavioral health clinic for more support over the last 5 to 6 months. Substance abuse history: None reported history: None Legal history: None Medical history: GERD Surgical history: None Allergies: No known drug allergies Current medications: Pantoprazole Family psychiatric history: None reported Social history: The patient was raised in the [place] area by her mother and maternal grandmother. She stated having no siblings. She reports that she had obtained her high school diploma but had a history of a learning disorder. She also had reported history of a hearing disorder as well. She states that she was on an IEP and special education services having graduated from [employer] up to high school on disability. 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 She denied any history of sexual physical or emotional abuse. The patient reported that she has been before and is currently residing in the [facility]. She reports having 1 child age 6 from a previous relationship and states that that child lives with his father and a 9-year-old male currently lives with the patient's biological father. She reports that her parents when the patient was young and stated having divided time between the 2 households growing up. She did not endorse any adolescent history of substance use. She had minimized any history of sexual physical or emotional abuse she states that she is currently staying on a friend's couch in [place]. She had reported having problems with being easily manipulated in previous relationships. She reports that she is . Meds NPU Home Medications Medication Instructions Recorded Confirmed Last Taken Type No Known Home Medications 06/04/24 06/04/24 Unknown History Allergies Allergy/AdvReac Type Severity Reaction Status Date / Time No Known Allergies Allergy Verified 05/12/23 15:58 COUNTS INCLUDE 234 BEDS AT THE [facility] NPU PFS: Medical History No pertinent family history Surgical History No pertinent past surgical history Social History Smoking and tobacco/nicotine status: current every day tobacco/nicotine user Mental Status Exam MSE Comments: Patient is a casually dressed overweight white female who was pleasant and cooperative on interview. Her gait was within normal limits. Her hygiene was fair. There was no evidence of any abnormal involuntary motor movements tics or tremors appreciated. Her speech was normal in regards to rate rhythm and prosody. Her mood was described as depressed. Her affect was restricted in range and mood congruent. Her thought process was linear logical and goal-directed. Her thought content showed evidence of suicidal ideation with a plan to hang herself. She denied any homicidal ideation. She did not appear to be responding to internal stimuli. There was no clear evidence of delusional thinking. Her recent and remote memory were intact. Her intelligence appeared commensurate with mild cognitive impairment. Vitals/I&O/Wt Last Vital Signs Temp 97.8 F 06/04/24 13:59 Pulse 94 06/04/24 13:59 Resp 17 06/04/24 13:59 BP 107/71 06/04/24 13:59 Pulse Ox 98 06/04/24 13:59 O2 Del Method Room Air 06/04/24 06:00 Weight last 48 hrs Weight 72.575 kg Data NPU 06/03/24 16:12 06/03/24 16:12 Micro: Microbiology 06/03/24 15:22 Urine Culture - Preliminary Urine,Clean Catch Microbiology 06/03/24 15:22 Urine,Clean Catch Urine Culture - Preliminary A&P Assessment and plan (1) Suicidal ideation: (2) Major depressive disorder, single episode, severe: Plan 29-year-old female with no previous history of inpatient hospitalizations admitted with suicidal ideation with a plan to hang herself currently without any medications for psychotherapy. #1.? Engage patient in individual milieu and group therapy. #2?? Recommend sober living treatment at the highest level of care to which the patient is willing to commit #3??? Restart outpatient medications with addition of prozac to target depression. #4?? TO-15 minute checks? #5?? Will attempt to gather collateral information Involuntary Hold Information 96 Hour Hold: 96 Hour Involuntary Admission: Yes 96 Hour Hold Ending Date: 06/03/24 96 Hour Hold Ending Time: 20:45 Attestations NPU Medical Necessity Statement*: Inpatient hospitalization is medically necessary and deemed to ?be ?the clinically appropriate intervention ?at this time.? We will monitor/initiate medications and make changes as indicated.? The patient will be in the hospital for over 2 midnights.? The patient?s likely length of stay 5-7days. Coding Level of Care Code Acute Code for Chg Fwd Diagnoses Suicidal ideation R45.851 Major depressive disorder, single episode, severe F32.2
[2024-06-04] MEDS: fluoxetine 10 mg Capsule PO (15:15)
[2024-06-04] MEDS: trazodone 50 mg Tablet PO (21:36)
[2024-06-04 22:00] VITALS: BP 109/73; PULSE 81; RESP 18; TEMP 36.6; O2SAT 99
[2024-06-05 06:00] VITALS: BP 109/72; PULSE 94; RESP 15; O2SAT 97
[2024-06-05] MEDS: fluoxetine 10 mg Capsule PO (09:14)
[2024-06-05 14:00] VITALS: BP 109/73; PULSE 77; RESP 16; TEMP 36.3; O2SAT 99
--- NOTE | 2024-06-05 14:35 | P.NPUPN_ITS ---
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 She reported no side effects from her Prozac. She appeared somewhat anxious on the milieu but was redirectable. There was no evidence of aggression. She denied any manic symptoms nor did she endorse any paranoia. She had reported some difficulties with falling asleep. She had reported some feelings of abandonment and reported that she had limited social supports at this time. She had reported that she liked being with herself and reported having difficulties being in crowds. She had reported having feelings that something bad was going to happen to her. Mental Status Exam 2 MSE Comments: Patient is a casually dressed overweight white female who was pleasant and cooperative on interview. Her gait was within normal limits. Her hygiene was fair. There was no evidence of any abnormal involuntary motor movements tics or tremors appreciated. Her speech was normal in regards to rate rhythm and prosody. Her mood was described as depressed. Her affect was restricted in range and mood congruent. Her thought process was linear logical and goal- directed. Her thought content showed evidence of suicidal ideation with a plan to hang herself. She denied any homicidal ideation. She did not appear to be responding to internal stimuli. There was no clear evidence of delusional thinking. Her recent and remote memory were intact. Her intelligence appeared commensurate with mild cognitive impairment. Vitals/I&O/Wt Last Vital Signs Temp 97.4 F L 06/05/24 14:00 Pulse 77 06/05/24 14:00 Resp 16 06/05/24 14:00 BP 109/73 06/05/24 14:00 Pulse Ox 99 06/05/24 14:00 O2 Del Method Room Air 06/05/24 14:00 06/04/24 06/05/24 06/05/24 22:59 06:59 14:59 Intake Total 600 / 600 Balance 600 / 600 Weight last 48 hrs Weight 73.142 kg Weight 72.575 kg Data NPU 06/03/24 16:12 06/03/24 16:12 Micro: Microbiology 06/03/24 15:22 Urine Culture - Final Urine,Clean Catch Microbiology 06/03/24 15:22 Urine,Clean Catch Urine Culture - Final A&P Assessment and plan (1) Suicidal ideation: (2) Major depressive disorder, single episode, severe: Plan 29-year-old female with no previous history of inpatient hospitalizations admitted with suicidal ideation with a plan to hang herself currently without any medications for psychotherapy. #1.? Engage patient in individual milieu and group therapy. #2?? Recommend sober living treatment at the highest level of care to which the patient is willing to commit #3??? Increase prozac to 20mg daily. #4?? TO-15 minute checks? #5?? Will attempt to gather collateral information Involuntary Hold Information 2 96 Hour Hold: 96 Hour Involuntary Admission: Yes 96 Hour Hold Ending Date: 06/03/24 96 Hour Hold Ending Time: 20:45 Attestations NPU 2 Medical Necessity Statement*: Inpatient hospitalization is medically necessary and deemed to ?be ?the clinically appropriate intervention ?at this time.? We will monitor/initiate medications and make changes as indicated.?? The patient?s likely length of stay 5-7days. Coding Level of Care Code Acute Code for [facility] Diagnoses Suicidal ideation R45.851 Major depressive disorder, single episode, severe F32.2
[2024-06-05] MEDS: trazodone 50 mg Tablet PO (20:01)
[2024-06-05 21:28] VITALS: BP 112/76; PULSE 100; RESP 18; TEMP 36.3; O2SAT 98
[2024-06-06 06:00] VITALS: BP 106/73; PULSE 90; RESP 16; O2SAT 98
[2024-06-06] MEDS: ibuprofen 600 mg Tablet PO (08:46)
[2024-06-06] MEDS: fluoxetine 10 mg Capsule 20 MG PO (08:50)
--- NOTE | 2024-06-06 09:02 | PC.NURSE ---
SITTING ON BED. RATES PAIN 4/10, STATES SHE IS HAVING PERIOD CRAMPS. MED NURSE NOTIFIED AND GAVE MEDICATIONS ORDERED. DENIES SI/HI AND AVH AT THIS TIME. RATES ANXIETY AND DEPRESSION /10. PT IS NOTED TO HAVE FLAT AFFECT. IS [place] BUT CAN UNDERSTAND SPEECH. SUPPORT VOICED.
[2024-06-06 14:00] VITALS: BP 107/68; PULSE 80; RESP 16; TEMP 37.2; O2SAT 98
--- NOTE | 2024-06-06 15:56 | P.NPUPN_ITS ---
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 The patient had reported that she was feeling better. She reported no side effects from her antidepressant medication at this time. She denied any feelings of hopelessness or worthlessness. She had reported frustration with feeling as if others were somehow persecuting her. She had reported having problems with low energy and stated that she was not having as many thoughts about hanging herself but still reported feeling depressed for the past several months. Patient was compliant and redirectable and was able to attend groups without difficulty. Mental Status Exam 2 MSE Comments: Patient is a casually dressed overweight white female who was pleasant and cooperative on interview. Her gait was within normal limits. Her hygiene was fair. There was no evidence of any abnormal involuntary motor movements tics or tremors appreciated. Her speech was normal in regards to rate ,rhythm, and a slight speech impediment. Her mood was described as depressed. Her affect was restricted in range and mood congruent. Her thought process was linear logical and goal-directed. Her thought content showed no evidence of suicidal ideation. She denied any homicidal ideation. She did not appear to be responding to internal stimuli. There was no clear evidence of delusional thinking. Her recent and remote memory were intact. Her intelligence appeared commensurate with mild cognitive impairment. Vitals/I&O/Wt Last Vital Signs Temp 99 F 06/06/24 14:00 Pulse 80 06/06/24 14:00 Resp 16 06/06/24 14:00 BP 107/68 06/06/24 14:00 Pulse Ox 98 06/06/24 14:00 O2 Del Method Room Air 06/06/24 14:00 Weight last 48 hrs Weight 73.142 kg Data NPU 06/03/24 16:12 06/03/24 16:12 A&P Assessment and plan (1) Suicidal ideation: (2) Major depressive disorder, single episode, severe: Plan 29-year-old female with no previous history of inpatient hospitalizations admitted with suicidal ideation with a plan to hang herself currently without any medications for psychotherapy. #1.? Engage patient in individual milieu and group therapy. #2?? Recommend sober living treatment at the highest level of care to which the patient is willing to commit. #3???Continue prozac at 20mg daily. #4?? TO-15 minute checks? #5?? Will attempt to gather collateral information Involuntary Hold Information 2 96 Hour Hold: 96 Hour Involuntary Admission: Yes 96 Hour Hold Ending Date: 06/03/24 96 Hour Hold Ending Time: 20:45 Attestations NPU 2 Medical Necessity Statement*: Inpatient hospitalization is medically necessary and deemed to ?be ?the clinically appropriate intervention ?at this time.? We will monitor/initiate medications and make changes as indicated.?? The patient?s likely length of stay 5-7days. Coding Level of Care Code Acute Code for Chg Fwd Diagnoses Suicidal ideation R45.851 Major depressive disorder, single episode, severe F32.2
[2024-06-06] MEDS: acetaminophen 325 mg Tablet 650 MG PO (18:57)
[2024-06-06 22:00] VITALS: BP 109/70; PULSE 75; RESP 16; TEMP 36.4; O2SAT 97
[2024-06-07 06:00] VITALS: BP 104/65; PULSE 81; RESP 12; TEMP 36.4; O2SAT 98
[2024-06-07] MEDS: fluoxetine 10 mg Capsule 20 MG PO (08:20)
[2024-06-07 12:38] VITALS: BP 104/65; PULSE 81; RESP 12; TEMP 36.4; O2SAT 98
--- NOTE | 2024-06-07 12:56 | DCPLANNER ---
IMM was printed and given to pt and rights explained. Copy was placed in pts file.
[2024-06-07 14:00] VITALS: BP 118/79; PULSE 93; RESP 17; O2SAT 100
--- NOTE | 2024-06-07 17:28 | W.PM.NPUDCS ---
Diagnoses at Discharge Discharge Diagnosis (1) Suicidal ideation: Status: Acute (2) Major depressive disorder, single episode, severe: Status: Acute Reason for Visit Reason for Visit: SI Brief History: History of Present Illness Radha Lea is a 29 year old female with no previous history of inpatient psychiatric hospitalization who presented to the emergency department with complaints of suicidal ideation with a desire to hang herself in the davies or run car into traffic. The patient was admitted to the neuropsychiatric unit for further evaluation and treatment. Patient reports that she has been feeling depressed for several months. She endorses crying more frequently. She endorsed anhedonia. She reports having problems with concentration and reports feeling depressed with suicidal thoughts having been more prominent over the past week. She reported no history of drug or alcohol use. She reports that she has been homeless since she left the home of her ex-boyfriend in April 18 secondary to his constant criticism and described her relationship with him as being toxic. The patient had reported that she feels that she has been out of control. She states that she has been able to sleep at some friends couches but reports that she is also slept in her car for many nights over the past month. 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 The patient denies any history of hallucinations. She denies any manic symptoms. She reports often feeling guilty and reports feeling controlled. She states that she has had more problems with managing her anxiety and describes being easily frustrated. She also endorses a loss of appetite along with difficulty falling asleep with frequent awakenings at night. She denies any illicit drug use or alcohol use. The patient reported having no job and no 1 to help her. She reports I feel lost and confused . Patient had reported that she frequently hears inside of her head the presence of her mother's voice stating that she had been accomplishing nothing in her life. Inpatient psychiatric history: None reported Outpatient psychiatric history: She reports no history of routine monthly or weekly psychotherapy but states that she has come into the crisis unit at the behavioral health clinic for more support over the last 5 to 6 months. Substance abuse history: None reported history: None Legal history: None Medical history: GERD Surgical history: None Allergies: No known drug allergies Current medications: Pantoprazole Family psychiatric history: None reported Social history: The patient was raised in the [place] area by her mother and maternal grandmother. She stated having no siblings. She reports that she had obtained her high school diploma but had a history of a learning disorder. She also had reported history of a hearing disorder as well. She states that she was on an IEP and special education services having graduated from [employer] to [employer] school on disability. 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 She denied any history of sexual physical or emotional abuse. The patient reported that she has been before and is currently residing in the [facility]. She reports having 1 child age 6 from a previous relationship and states that that child lives with his father and a 9-year-old male currently lives with the patient's biological father. She reports that her parents when the patient was young and stated having divided time between the 2 households growing up. She did not endorse any adolescent history of substance use. She had minimized any history of sexual physical or emotional abuse she states that she is currently staying on a friend's couch in [place]. She had reported having problems with being easily manipulated in previous relationships. She reports that she is . Hospital Course Hospital Course During the hospitalization, the patient had routine laboratory studies which were within normal limits except for a few outliers.? Additionally, there was a general medical evaluation which was also within normal limits and revealed no new acute processes.? At the time of discharge, lethality was denied and psychosis was resolving.? Mood and anxiety were well managed.? The patient endorsed a plan to avoid all drugs of abuse and follow up with the aftercare recommendations of the treatment team.? The patient was evaluated and deemed to be absent credible lethality and had achieved the maximum benefit from an inpatient hospitalization, and so was discharged. She was started on prozac 10mg and titrated up to a dose of 30mg at the time of discharge. Trazodone was given to her at night for managing insomnia. ? Involuntary Hold Information 96 Hour Hold: 96 Hour Involuntary Admission: Yes 96 Hour Hold Ending Date: 06/03/24 96 Hour Hold Ending Time: 20:45 Mental Status Exam MSE Comments: Patient is a casually dressed overweight white female who was pleasant and cooperative on interview. Her gait was within normal limits. Her hygiene was fair. There was no evidence of any abnormal involuntary motor movements tics or tremors appreciated. Her speech was normal in regards to rate ,rhythm, and a slight speech impediment. Her mood was described as okay. Her affect was mildly restricted. Her thought process was linear logical and goal-directed. Her thought content showed no evidence of suicidal ideation. She denied any homicidal ideation. She did not appear to be responding to internal stimuli. There was no clear evidence of delusional thinking. Her recent and remote memory were intact. Her insight was fair. Her judgment was fair. Her impulse control appeared better. Her intelligence appeared in normal range. Discharge Data Studies Completed and Pending: Laboratory Results WBC 8.84 10^3/uL (3.2 9-11.43) 06/03/24 16:12 RBC 4.75 10^6/uL (3.8 5-5.65) 06/03/24 16:12 Hgb 14.10 g/dL (11.27 -16.99) 06/03/24 16:12 Hct 41.9 % (36-47) 06/03/24 16:12 MCV 88.2 fl (85-98) 06/03/24 16:12 MCH 29.7 pg (27-33) 06/03/24 16:12 MCHC 33.7 g/dL (30-55) 06/03/24 16:12 RDW 12.9 % (12.1-15.1 ) 06/03/24 16:12 Plt Count 293 10^3/cmm (157 -399) 06/03/24 16:12 MPV 10.9 fL (7.4-10.4 ) H 06/03/24 16:12 Neut % (Auto) 71.4 % 06/03/24 16:12 Lymph % (Auto) 21.2 % 06/03/24 16:12 [place] % (Auto) 5.5 % 06/03/24 16:12 Eos % (Auto) 1.0 % 06/03/24 16:12 Baso % (Auto) 0.7 % 06/03/24 16:12 Neut # (Auto) 6.31 10^3/uL (1.8 -7.7) 06/03/24 16:12 Lymph # (Auto) 1.9 10^3/uL (0.8- 4.8) 06/03/24 16:12 [place] # (Auto) 0.5 10^3/uL (0.2- 0.9) 06/03/24 16:12 Eos # (Auto) 0.1 10^3/uL (0.0- 0.8) 06/03/24 16:12 Baso # (Auto) 0.1 10^3/uL (0.0- 0.1) 06/03/24 16:12 Nucleated RBC % (a uto) 0 % 06/03/24 16:12 Nucleated RBCs # 0.0 /100WBC 06/03/24 16:12 Sodium 136 mmol/L (136-1 45) 06/03/24 16:12 Potassium 3.9 mmol/L (3.5-5 .1) 06/03/24 16:12 Chloride 103 mmol/L (98-10 7) 06/03/24 16:12 Carbon Dioxide 23 mmol/L (22-29) 06/03/24 16:12 Anion Gap 13.9 (5-19) 06/03/24 16:12 BUN 19 mg/dL (6-20) 06/03/24 16:12 Creatinine 0.9 mg/dL (0.5-0. 9) 06/03/24 16:12 GFR Calculation 73.0 mL/min (90-1 30) L 06/03/24 16:12 Glucose 85 mg/dL (65-115) 06/03/24 16:12 Calculated Osmolal ity 284 mOsm/kg (285- 295) L 06/03/24 16:12 Calcium 9.2 mg/dL (8.5-10 .5) 06/03/24 16:12 Total Bilirubin 0.5 mg/dL (0.15-1 .2) 06/03/24 16:12 AST 21 U/L (0-32) 06/03/24 16:12 ALT 23 U/L (0-33) 06/03/24 16:12 Alkaline Phosphata se 70 U/L (35-105) 06/03/24 16:12 Total Protein 7.9 g/dL (6.6-8.7 ) 06/03/24 16:12 Albumin 4.5 g/dL (3.5-5.2 ) 06/03/24 16:12 Globulin 3.4 g/dL (1.3-4.6 ) 06/03/24 16:12 HCG, Qual Negative (Negati ve) 06/03/24 15:22 Urine Color Yellow (Yellow) 06/03/24 15:22 Urine Appearance Cloudy (CLEAR) A 06/03/24 15:22 Urine pH 5.5 (5-7) 06/03/24 15:22 Ur Specific Gravit y 1.036 (1.005-1.0 30) H 06/03/24 15:22 Urine Protein Trace (Negative) A 06/03/24 15:22 Urine Glucose (UA) Negative (Normal ) 06/03/24 15:22 Urine Ketones Trace (Negative) 06/03/24 15:22 Urine Blood Negative (Negati ve) 06/03/24 15:22 Urine Nitrate Negative (Negati ve) 06/03/24 15:22 Urine Bilirubin Negative (Negati ve) 06/03/24 15:22 Urine Urobilinogen 1.0 mg/dL (Negati ve) 06/03/24 15:22 Ur Leukocyte Kym ase 1+ (Negative) A 06/03/24 15:22 Urine RBC 0-2 /hpf (0-2) 06/03/24 15:22 Urine WBC 6-10 /hpf (0-5) 06/03/24 15:22 Ur Squamous Epith Cells 6-10 /hpf (0-5) 06/03/24 15:22 Amorphous Sediment Not Reportable 06/03/24 15:22 Urine Bacteria 2+ /hpf (NONE) H 06/03/24 15:22 Hyaline Casts 4.11 /lpf 06/03/24 15:22 Salicylates 0.5 mg/dL (3-10) L 06/03/24 16:12 Urine Opiates Scre en Negative ng/mL (N egative) 06/03/24 15:22 Acetaminophen < 5.0 ug/mL (10-3 0) L 06/03/24 16:12 Ur Barbiturates Sc reen Negative ng/mL (N egative) 06/03/24 15:22 Ur Phencyclidine S crn Negative ng/mL (N egative) 06/03/24 15:22 Ur Amphetamines Sc reen Negative ng/mL (N egative) 06/03/24 15:22 U Benzodiazepines Scrn Negative ng/mL (N egative) 06/03/24 15:22 Urine Cocaine Scre en Negative ng/mL (N egative) 06/03/24 15:22 U Marijuana (THC) Screen Positive ng/mL (N egative) H 06/03/24 15:22 Ethyl Alcohol < 10 mg/dL (0-10) 06/03/24 16:12 Vitals: Last Vital Signs Temp 97.6 F 06/07/24 12:38 Pulse 93 06/07/24 14:00 Resp 17 06/07/24 14:00 BP 118/79 06/07/24 14:00 Pulse Ox 100 06/07/24 14:00 O2 Del Method Room Air 06/07/24 06:00 Discharge Plan Discharge Patient Disposition: Home Condition: Stable Prescriptions: New fluoxetine 10 mg Capsule 10 mg PO DAILY 30 Days Qty: 30 1RF fluoxetine [Prozac] 20 mg capsule 20 mg PO DAILY Qty: 30 1RF Rx Instructions: TDD=30mg day. trazodone 100 mg tablet 100 mg PO .qhs Qty: 30 1RF Rx Instructions: 1/2 to 1 tablet at night for insomnia. Discharge Orders: Discharge Order (Routine); Ordered 06/07/24 Ordered By: Braden Arreguin Referrals: [facility] [Outside] - 06/14/24 12:30 pm (Initial appointment.) Mckenzie Davis NP [Nurse Practitioner] - 06/21/24 11:00 am ([facility] follow up. ) Discharge Diet: Usual diet Discharge Activity: Resume usual activity Patient Instructions: Depression, Fluoxetine (By mouth) (Fluoxetine HCl, Gaboxetine, Prozac, Prozac Weekly), Help Prevent Suicide (DC), Suicide Prevention (DC), Opioid Safety Discharge Attestations NPU Time Spent in Discharge Care*: less than 30 min Specific Discharge Activities: Specific discharge activities: educating patient, discussing with case preparer and liner/social workers/dc planners and documenting/other paperwork Coding Level of Care Code Acute Code for Chg Fwd Diagnoses Suicidal ideation R45.851 Major depressive disorder, single episode, severe F32.2
== END 2024-06-07 15:06 | disposition home or self-care (01) | DRG 885 ==
LOC: ER 17:28 → NP 18:42
PROVIDERS: Admitting Provider Psychiatry & Neurology Psychiatry; Emergency Provider Emergency Medicine; Visit Provider Psychiatry & Neurology Psychiatry
DX: F32.2 Major depressive disorder, single episode, severe without psychotic features (principal); R45.851 Suicidal ideations; Z59.02 Unsheltered homelessness; R45.84 Anhedonia; H91.90 Unspecified hearing loss, unspecified ear; F17.210 Nicotine dependence, cigarettes, uncomplicated; G31.84 Mild cognitive impairment of uncertain or unknown etiology; Z97.4 Presence of external hearing-aid
CPT/HCPCS: 36415; 80053; 80306; 80307; 81001; 81025; 85025; 87086; 97150; 97165; 99285

== ENCOUNTER → 2024-06-21 11:16 | Outpatient (BNVA) | payer MEDICARE, SELFPAY | DX: R39.89 Other symptoms and signs involving the genitourinary system (principal) | CPT/HCPCS: 81000; 87491; 87591 ==

== ENCOUNTER 2024-08-11 18:31 | Inpatient (IN) | payer OTHER, MEDICARE, SELFPAY ==
[2024-08-11 18:36] VITALS: BP 121/82; PULSE 103; RESP 18; TEMP 36.8; O2SAT 99; BMI 25.7
[2024-08-11 18:40] VITALS: BP 121/82; PULSE 103; RESP 18; TEMP 36.8; O2SAT 99
[2024-08-11 19:08] LABS: HCG Qualitative Urine. Negative (Negative)
[2024-08-11 19:08] LABS: Basophils # 0.1 10^3/uL (0.0-0.1); Basophils % 0.7 %; Eosinophils # 0.1 10^3/uL (0.0-0.8); Eosinophils % 1.8 %; Hematocrit 40.2 % (36-47); Lymphocytes # 1.8 10^3/uL (0.8-4.8); Lymphocytes % 24.9 %; Mean Corpuscular HGB Conc 33.6 g/dL (30-55); Mean Corpuscular Hemoglobin 29.7 pg (27-33); Mean Corpuscular Volume 88.4 fl (85-98); Mean Platelet Volume 10.8 fL (7.4-10.4); Monocytes # 0.3 10^3/uL (0.2-0.9); Monocytes % 3.9 %; Neutrophils # 4.98 10^3/uL (1.8-7.7); Neutrophils % 68.4 %; Nucleated Red Blood Cells % 0 %; Platelet Count 249 10^3/cmm (157-399); Red Blood Count 4.55 10^6/uL (3.85-5.65); Red Cell Distribution Width 12.6 % (12.1-15.1); White Blood Count 7.27 10^3/uL (3.29-11.43)
--- NOTE | 2024-08-11 19:18 | PC.NURSE ---
[employer] LOOKED THROUGH WITH [employer]. PATIENT CLOTHING AND FOOD PRESENT.
[2024-08-11 19:38] LABS: Alanine Aminotransferase 72 U/L (0-33); Albumin Level 4.2 g/dL (3.5-5.2); Alkaline Phosphatase 71 U/L (35-105); Anion Gap 13.4 (5-19); Aspartate Amino Transferase 45 U/L (0-32); Blood Urea Nitrogen 13 mg/dL (6-20); Calcium 9.4 mg/dL (8.5-10.5); Carbon Dioxide 23 mmol/L (22-29); Chloride 105 mmol/L (98-107); Creatinine Clr Calc Pharmacy 77.2541; Globulin 3.3 g/dL (1.3-4.6); Glomerular Filtration Rate 64.7 mL/min (90-130); Glucose 135 mg/dL (65-115); Osmolality Calculated 288 mOsm/kg (285-295); Potassium 3.4 mmol/L (3.5-5.1); Sodium 138 mmol/L (136-145); Thyroid Stimulating Hormone 6.81 uIU/mL (0.27-4.20); Total Bilirubin 0.4 mg/dL (0.15-1.2); Total Protein 7.5 g/dL (6.6-8.7)
[2024-08-11 19:39] LABS: Acetaminophen < 5.0 ug/mL (10-30); Alcohol Level < 10 mg/dL (0-10); Salicylate < 0.3 mg/dL (3-10)
--- NOTE | 2024-08-11 19:40 | ED.C_ITS ---
HPI - Psych 2 General: Chief Complaint: Psychiatric Symptoms Stated Complaint: mhe Time Seen by Provider: 08/11/24 18:35 History of Present Illness: 29-year-old female with a history of dep ression who presents to the emergency room from the crisis center on a 96-hour hold secondary to suicidal thoughts. She has not been taking her medications. She says she has been becoming more depressed and having thoughts of running her car into another car. Or off the road. Related Data Home Medications Medication Instructions Recorded Confirmed buspirone 10 mg tablet 10 mg PO BID 06/21/24 06/21/24 Previous Rx's Medication Instructions Recorded fluoxetine 10 mg capsule 10 mg PO DAILY 30 days #30 caps 06/07/24 fluoxetine 20 mg capsule (Prozac) 20 mg PO DAILY #30 caps 06/07/24 trazodone 100 mg tablet 100 mg PO .qhs #30 tabs 06/07/24 doxycycline hyclate 100 mg capsule 100 mg PO BID 14 days #28 caps 06/21/24 metronidazole 500 mg tablet 500 mg PO BID 14 days #28 tabs 06/21/24 Allergies Allergy/AdvReac Type Severity Reaction Status Date / Time No Known Allergies Allergy Verified 06/21/24 11:01 Review of Systems 2 Narrative: Constitutional symptoms: Negative except as documented in HPI. Skin symptoms: Negative except as documented in HPI. Eye symptoms: Negative except as documented in HPI. ENMT symptoms: Negative except as documented in HPI. Respiratory symptoms: Negative except as documented in HPI. Cardiovascular symptoms: Negative except as documented in HPI. Gastrointestinal symptoms: Negative except as documented in HPI. Genitourinary symptoms: Negative except as documented in HPI. Musculoskeletal symptoms: Negative except as documented in HPI. Neurologic symptoms: Negative except as documented in HPI. Psychiatric symptoms: Negative except as documented in HPI. Endocrine symptoms: Negative except as documented in HPI. PFSH ED 2 PFSH: Medical History (Updated 08/11/24 @ 20:25 by Gricelda Damian MD) Encounter to establish care PID (pelvic inflammatory disease) No pertinent family history Surgical History No pertinent past surgical history Social History Smoking and tobacco/nicotine status: current every day tobacco/nicotine user (vapes and cigerretes) Physical Exam 2 Narrative: EXAM NARRATIVE: General: Alert. no acute distress Skin: Warm, dry Head: Normocephalic, atraumatic. Neck: Supple, trachea midline. Eye: Extraocular movements are intact. Ears, nose, mouth and throat: Oral mucosa moist. Cardiovascular: Regular rate and rhythm, Normal peripheral perfusion. Respiratory: Lungs are clear to auscultation, respirations are non-labored, breath sounds are equal, Symmetrical chest wall expansion. Gastrointestinal: Soft, Nontender, Non distended, Normal bowel sounds. Musculoskeletal: Normal ROM, no deformity. Neurological: Alert and oriented to person, place, time, and situation, No focal neurological deficit observed. Psychiatric: Cooperative, depressed, expresses suicidal ideation. Course 2 Vital Signs: Vital signs: Vital Signs Temperature 98.3 F 08/11/24 18:40 Pulse Rate 103 H 08/11/24 18:40 Respiratory Rate 18 08/11/24 18:40 Blood Pressure 121/82 08/11/24 18:40 Pulse Oximetry 99 08/11/24 18:40 Oxygen Delivery Me thod Room Air 08/11/24 18:40 MDM - Psych Medical Decision Making Differential diagnosis: Patient with reported depression and suicidal ideation. concerns for infection, alcohol intoxication, cardiac issues or other medical problems prior to psychiatric admission. Workup: labwork, ekg ordered to evaluate the pathologies and to clear the patient medically prior to psychiatric admission Lab Review: Laboratory results were reviewed and interpreted by myself the emergency room physician. - Medically cleared. - EKG shows no ischemic changes. - Blood alcohol level is negative, -Tylenol and salicylate levels are negative. - Drug screen is pending - No signs of infection, urinalysis clear and white count is not elevated - No anemia. - BUN and creatinine are within normal limits. Consultation: I spoke with Dr. Davis who is on-call for the psychiatric service who agrees to admission. Assessment and plan: Suicidal ideation Depression -Admission to neuropsychiatric unit for continued evaluation and treatment. - All lab work was reviewed and interpreted personally by myself, the ER physician - Evaluation and treatment of this problem were appropriate in the emergency setting Lab Data 08/11/24 19:01 08/11/24 19:01 Laboratory Results WBC 7.27 10^3/uL (3.29-11.43) 08/11/24 19:01 RBC 4.55 10^6/uL (3.85-5.65) 08/11/24 19: Hgb 13.50 g/dL (11.27-16.99) 08/11/24 19: Hct 40.2 % (36-47) 08/11/24 19: MCV 88.4 fl (85-98) 08/11/24 19: MCH 29.7 pg (27-33) 08/11/24 19: MCHC 33.6 g/dL (30-55) 08/11/24 19: RDW 12.6 % (12.1-15.1) 08/11/24 19: Plt Count 249 10^3/cmm (157-399) 08/11/24 19: MPV 10.8 fL (7.4-10.4) H 08/11/24 19:01 Neut % (Auto) 68.4 % 08/11/24 19: Lymph % (Auto) 24.9 % 08/11/24 19: [place] % (Auto) 3.9 % 08/11/24 19:01 Eos % (Auto) 1.8 % 08/11/24 19:01 Baso % (Auto) 0.7 % 08/11/24 19: Neut # (Auto) 4.98 10^3/uL (1.8-7.7) 08/11/24 19: Lymph # (Auto) 1.8 10^3/uL (0.8-4.8) 08/11/24 19: [place] # (Auto) 0.3 10^3/uL (0.2-0.9) 08/11/24 19: Eos # (Auto) 0.1 10^3/uL (0.0-0.8) 08/11/24 19: Baso # (Auto) 0.1 10^3/uL (0.0-0.1) 08/11/24 19: Nucleated RBC % (auto) 0 % 08/11/24 19: Nucleated RBCs # 0.0 /100WBC 08/11/24 19:01 Sodium 138 mmol/L (136-145) 08/11/24 19:01 Potassium 3.4 mmol/L (3.5-5.1) L 08/11/24 19:01 Chloride 105 mmol/L (98-107) 08/11/24 19:01 Carbon Dioxide 23 mmol/L (22-29) 08/11/24 19:01 Anion Gap 13.4 (5-19) 08/11/24 19:01 BUN 13 mg/dL (6-20) 08/11/24 19:01 Creatinine 1.0 mg/dL (0.5-0.9) H 08/11/24 19:01 GFR Calculation 64.7 mL/min (90-130) L 08/11/24 19:01 Glucose 135 mg/dL (65-115) H 08/11/24 19:01 Calculated Osmolality 288 mOsm/kg (285-295) 08/11/24 19:01 Calcium 9.4 mg/dL (8.5-10.5) 08/11/24 19:01 Total Bilirubin 0.4 mg/dL (0.15-1.2) 08/11/24 19:01 AST 45 U/L (0-32) H 08/11/24 19:01 ALT 72 U/L (0-33) H 08/11/24 19:01 Alkaline Phosphatase 71 U/L (35-105) 08/11/24 19:01 Total Protein 7.5 g/dL (6.6-8.7) 08/11/24 19:01 Albumin 4.2 g/dL (3.5-5.2) 08/11/24 19:01 Globulin 3.3 g/dL (1.3-4.6) 08/11/24 19:01 TSH 6.81 uIU/mL (0.27-4.20) H 08/11/24 19:01 HCG, Qual Negative (Negative) 08/11/24 18:53 Urine RBC 0-2 /hpf (0-2) 08/11/24 20:15 Urine WBC 0-5 /hpf (0-5) 08/11/24 20:15 Ur Squamous Epith Cells 0-5 /hpf (0-5) 08/11/24 20:15 Amorphous Sediment Not Reportable 08/11/24 20:15 Urine Bacteria Trace /hpf (NONE) 08/11/24 20:15 Hyaline Casts 0-4 /lpf H 08/11/24 20:15 Salicylates < 0.3 mg/dL (3-10) L 08/11/24 19:01 Acetaminophen < 5.0 ug/mL (10-30) L 08/11/24 19:01 Ethyl Alcohol < 10 mg/dL (0-10) 08/11/24 19:01 No radiology studies performed this visit Discharge Plan Discharge Patient Disposition: Admitted As Inpatient Clinical Impression: Suicidal ideation, Depression Condition: Stable Coding Level of Care Code ED Community Liaison for Benito Lewis
--- NOTE | 2024-08-11 19:49 | PC.NURSE ---
96 Hour Involuntary Hold Patient Rights have been read to the patient and a copy of the same has been given to her. End Polisher Xiomy Byrne was present at bedside at the time of presentation of Rights.
--- NOTE | 2024-08-11 19:53 | ECG_ITS ---
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 Measurements Intervals [place] Rate: 88 P: 44 WA: 180 QRS: -12 QRSD: 108 T: 30 QT: 382 QTc: 463 Interpretive Statements SINUS RHYTHM POSSIBLE LEFT ATRIAL ENLARGEMENT [-0.1mV P-WAVE IN V1/V2] No previous ECG available for comparison Electronically Signed On 08-12-2024 16:57:28 CONTROL CABINET ASSEMBLER by Vince Flores M.D. [id number]
[2024-08-11 20:25] LABS: Bacteria Urine Trace /hpf; Hyaline Casts Urine 0-4 /lpf; RBC Urine 0-2 /hpf (0-2); Squamous Epithelial Cell Urine 0-5 /hpf (0-5); WBC Urine 0-5 /hpf (0-5)
[2024-08-11 20:30] LABS: Amphetamines Screen Urine Negative (Negative); Barbiturates Screen Urine Negative (Negative); Benzodiazepines Screen Urine Negative (Negative); Cocaine Screen Urine Negative (Negative); Opiate Screen Urine Negative (Negative); PCP Screen Urine Negative (Negative); THC Screen Urine Positive (Negative)
[2024-08-11 20:31] LABS: Bilirubin Urine Negative (Negative); Blood Urine Non-haemolysed trace (Negative); Glucose Urine UA Negative (Normal); Ketones Urine Negative (Negative); Leukocyte Esterase Urine Trace (Negative); Nitrate Urine Negative (Negative); Protein Urine Negative (Negative); Specific Gravity, Urine 1.019 (1.005-1.030); Urine Appearance Clear (CLEAR); Urine Color Yellow (Yellow)
[2024-08-11 21:02] LABS: Covid PCR NEGATIVE (Negative); Influenza A NEGATIVE (Negative); Influenza B NEGATIVE (Negative); Respiratory Syncytial Virus Ce NEGATIVE (Negative)
[2024-08-12 08:42] VITALS: BP 121/65; PULSE 72; TEMP 36.7; O2SAT 99
[2024-08-12 14:54] VITALS: BP 127/83; PULSE 76; RESP 18; TEMP 36.3; O2SAT 100
[2024-08-12 14:58] VITALS: BP 108/62; PULSE 94; TEMP 37.1; O2SAT 98
--- NOTE | 2024-08-12 15:26 | PC.NURSE ---
ADMISSION PT ARRIVED TO THE UNIT AT 1451. PT STATES OVER THE PAST FEW DAYS SHE FEELS LIKE SHE IS LETTING EVERYONE DOWN. PT STATES HER AND HER FATHER GOT INTO AN ARGUMENT AND SHE IS CURRENTLY HOMELESS. PT HAD A PLAN OF RUNNING INTO TRAFFIC. PT DOES HAVE HEARING AID
[2024-08-12] MEDS: flu vacc pf 24-25 (6 mos+) SYRINGE 45 MCG IM (15:48)
[2024-08-12 20:14] VITALS: BP 109/70; PULSE 67; RESP 16; TEMP 36.7; O2SAT 99
[2024-08-12] MEDS: trazodone 50 mg Tablet PO (22:00)
[2024-08-12] MEDS: hyDROXYzine 25 mg Capsule 50 MG PO (22:00)
[2024-08-13 06:30] VITALS: BP 110/72; PULSE 56; RESP 16; O2SAT 97
[2024-08-13] MEDS: BuSPIRONE 10 mg Tablet PO ×2 (09:10→17:55)
[2024-08-13] MEDS: fluoxetine 20 mg Capsule 40 MG PO (09:11)
--- NOTE | 2024-08-13 09:23 | W.PM.NPUH&PS ---
Providers/Chief Complaint Admitting Physician: Moise Davis MD Primary Care Provider: Mckenzie Davis NP Chief Complaint: mhe HPI NPU History of Present Illness Radha Lea is a 29 year old female who presented to the emergency department with the following report: Chief Complaint: Psychiatric Symptoms Stated Complaint: mhe Time Seen by Provider: 08/11/24 18:35 History of Present Illness: 29-year-old female with a history of depression who presents to the emergency room from the crisis center on a 96-hour hold secondary to suicidal thoughts. She has not been taking her medications. She says she has been becoming more depressed and having thoughts of running her car into another car. Or off the road. She was admitted to the neuropsychiatric unit for definitive treatment of those issues. She is known to [facility] through some outpatient services and a recent inpatient hospitalization back in June of this year. An excerpt of that discharge summary is included below for history and the fact that there have been no substantive changes. She presents today reporting that she has been having a tough time since she was discharged. She reports conflicts at home as well as conflict with her ex leading to feeling overwhelmed and not really knowing what she is going to do. She identified taking her medication in general and it was noted that her medication was increased while she was outpatient going from 30 mg of Prozac to 40 mg. However she reports that that has not been enough to keep her depression away. She is unaware of the name of the provider who increased her medication but is unclear whether it is a primary care doctor or a psychiatrist. She reports that she has had some instability with her residence and was planning on moving but then her dad got upset with her for even speaking with her ex and she started just feeling like she would be safe so she came to the hospital. We discussed considering the possibility of adding a mood stabilizer but for now we will leave medications as is. Per her 06/07/2024 [facility] inpatient psychiatric discharge summary: Discharge Diagnosis (1) Suicidal ideation: Status: Acute (2) Major depressive disorder, single episode, severe: Status: Acute Reason for Visit Reason for Visit: SI Brief History: History of Present Illness Radha Lea is a 29 year old female with no previous history of inpatient psychiatric hospitalization who presented to the emergency department with complaints of suicidal ideation with a desire to hang herself in the [place] or run car into traffic. The patient was admitted to the neuropsychiatric unit for further evaluation and treatment. Patient reports that she has been feeling depressed for several months. She endorses crying more frequently. She endorsed anhedonia. She reports having problems with concentration and reports feeling depressed with suicidal thoughts having been more prominent over the past week. She reported no history of drug or alcohol use. She reports that she has been homeless since she left the home of her ex-boyfriend in April 18 secondary to his constant criticism and described her relationship with him as being toxic. The patient had reported that she feels that she has been out of control. She states that she has been able to sleep at some friends couches but reports that she is also slept in her car for many nights over the past month. 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 The patient denies any history of hallucinations. She denies any manic symptoms. She reports often feeling guilty and reports feeling controlled. She states that she has had more problems with managing her anxiety and describes being easily frustrated. She also endorses a loss of appetite along with difficulty falling asleep with frequent awakenings at night. She denies any illicit drug use or alcohol use. The patient reported having no job and no 1 to help her. She reports I feel lost and confused . Patient had reported that she frequently hears inside of her head the presence of her mother's voice stating that she had been accomplishing nothing in her life. Inpatient psychiatric history: None reported Outpatient psychiatric history: She reports no history of routine monthly or weekly psychotherapy but states that she has come into the crisis unit at the behavioral health clinic for more support over the last 5 to 6 months. Substance abuse history: None reported history: None Legal history: None Medical history: GERD Surgical history: None Allergies: No known drug allergies Current medications: Pantoprazole Family psychiatric history: None reported Social history: The patient was raised in the [place] area by her mother and maternal grandmother. She stated having no siblings. She reports that she had obtained her high school diploma but had a history of a learning disorder. She also had reported history of a hearing disorder as well. She states that she was on an IEP and special education services having graduated from [employer] up to high school on disability. 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 She denied any history of sexual physical or emotional abuse. The patient reported that she has been before and is currently residing in the [facility]. She reports having 1 child age 6 from a previous relationship and states that that child lives with his father and a 9-year-old male currently lives with the patient's biological father. She reports that her parents when the patient was young and stated having divided time between the 2 households growing up. She did not endorse any adolescent history of substance use. She had minimized any history of sexual physical or emotional abuse she states that she is currently staying on a friend's couch in [place]. She had reported having problems with being easily manipulated in previous relationships. She reports that she is . Hospital Course During the hospitalization, the patient had routine laboratory studies which were within normal limits except for a few outliers. Additionally, there was a general medical evaluation which was also within normal limits and revealed no new acute processes. At the time of discharge, lethality was denied and psychosis was resolving. Mood and anxiety were well managed. The patient endorsed a plan to avoid all drugs of abuse and follow up with the aftercare recommendations of the treatment team. The patient was evaluated and deemed to be absent credible lethality and had achieved the maximum benefit from an inpatient hospitalization, and so was discharged. She was started on prozac 10mg and titrated up to a dose of 30mg at the time of discharge. Trazodone was given to her at night for managing insomnia. Meds NPU Home Medications Medication Instructions Recorded Confirmed Last Taken Type buspirone 10 mg tablet 10 mg PO BID 06/21/24 08/12/24 Unknown History fluoxetine 40 mg capsule 40 mg PO DAILY 08/12/24 08/12/24 Unknown History trazodone 100 mg tablet 100 mg PO BEDTIME PRN Sleep 08/13/24 08/13/24 Unknown History Allergies Allergy/AdvReac Type Severity Reaction Status Date / Time No Known Allergies Allergy Verified 06/21/24 11:01 [facility] NPU PFS: Medical History (Updated 08/13/24 @ 14:47 by Moise Davis MD) Encounter to establish care PID (pelvic inflammatory disease) No pertinent family history Surgical History No pertinent past surgical history Social History Smoking and tobacco/nicotine status: current every day tobacco/nicotine user (vapes and cigerretes) Mental Status Exam MSE Comments: This is a well-nourished well-developed white female in hospital scrubs, with adequate grooming and eye contact. No abnormal or involuntary motor movements in general except for mild psychomotor retardation. She was cooperative with exam in mild to moderate distress. It is noteworthy that she is significantly hard of hearing. Speech was decreased rate and volume and somewhat dysarthric reflecting her sounding like a person who has been hard of hearing since . Mood described as depressed affect was congruent. Thought process was organized. Thought content: patient denies suicidal or homicidal ideation, no delusions reported or noted, and denies auditory or visual hallucinations. Attention and concentration are mostly intact and memory appeared reliable but none were formally tested. She is alert and oriented times 3. Insight and judgment are limited and impulse control is impaired. Vitals/I&O/Wt Last Vital Signs Temp 98.0 F 08/12/24 20:14 Pulse 56 L 08/13/24 06:30 Resp 16 08/13/24 06:30 BP 110/72 08/13/24 06:30 Pulse Ox 97 08/13/24 06:30 O2 Del Method Room Air 08/12/24 14:55 Weight last 48 hrs Weight 68.039 kg Data NPU 08/11/24 19:01 08/11/24 19:01 A&P Assessment and plan (1) Suicidal ideation: (2) Major depressive disorder, single episode, severe: (3) Suicidal ideation: (4) Hearing deficit: (5) Partner relational problem: (6) Parent-child relational problem: Plan This is a 29-year-old female with recent inpatient hospitalization in June with past outpatient services who presents reporting that she is overwhelmed with the stressors at home and is here because she was not feeling safe prior to admission. She is open to possible medication adjustments 1. Continue current medication. Will consider a mood stabilizer. 2.? Continue every 15 minute checks for safety. 3. Encourage individual, group and milieu therapy 4.??Obtain collateral information. 5. Encourage sober living treatment after discharge at the highest level of care to which she is willing to commit.? Involuntary Hold Information 96 Hour Hold: 96 Hour Involuntary Admission: Yes 96 Hour Hold Ending Date: 08/17/24 96 Hour Hold Ending Time: 18:30 Attestations NPU Medical Necessity Statement*: Inpatient hospitalization is medically necessary and?the clinically appropriate intervention at this time.? We will monitor/initiate medications and make changes as indicated.? The patient will be in the hospital for over 2 midnights.? The patient?s likely length of stay 5-7days. Coding Level of Care Code Acute Code for Chg Fwd Diagnoses Suicidal ideation R45.851 Major depressive disorder, single episode, severe F32.2 Hearing deficit H91.90 Partner relational problem Z63.0 Parent-child relational problem Z62.820
[2024-08-13 14:00] VITALS: BP 114/78; PULSE 108; RESP 18; TEMP 36.5; O2SAT 97
[2024-08-13 20:28] VITALS: BP 106/75; PULSE 100; RESP 18; TEMP 36.3; O2SAT 93
[2024-08-13] MEDS: hyDROXYzine 25 mg Capsule 50 MG PO (22:05)
[2024-08-13] MEDS: trazodone 100 mg Tablet PO (22:05)
[2024-08-14 06:00] VITALS: BP 100/67; PULSE 97; RESP 17; O2SAT 97
[2024-08-14] MEDS: fluoxetine 20 mg Capsule 40 MG PO (09:37)
[2024-08-14] MEDS: BuSPIRONE 10 mg Tablet PO ×2 (09:37→17:29)
--- NOTE | 2024-08-14 12:06 | P.NPUPN_ITS ---
Subjective NPU 2 Subjective: Patient today reporting that she is doing okay and continue to discuss the possibility of a mood stabilizer to assist in managing her situation. She endorsed that she was doing okay and planned on working with the social work team tomorrow on looking at possible aftercare options. She denied any side effects to her medications. Mental Status Exam 2 MSE Comments: This is a well-nourished well-developed white female in hospital scrubs, with adequate grooming and eye contact. No abnormal or involuntary motor movements in general except for mild psychomotor retardation. She was cooperative with exam in mild to moderate distress. It is noteworthy that she is significantly hard of hearing. Speech was decreased rate and volume and somewhat dysarthric reflecting her sounding like a person who has been hard of hearing since . Mood described as depressed affect was congruent. Thought process was organized. Thought content: patient denies suicidal or homicidal ideation, no delusions reported or noted, and denies auditory or visual hallucinations. Attention and concentration are mostly intact and memory appeared reliable but none were formally tested. She is alert and oriented times 3. Insight and judgment are limited and impulse control is impaired. Vitals/I&O/Wt Last Vital Signs Temp 97.4 F L 08/13/24 20:28 Pulse 97 08/14/24 06:00 Resp 17 08/14/24 06:00 BP 100/67 08/14/24 06:00 Pulse Ox 97 08/14/24 06:00 O2 Del Method Room Air 08/13/24 14:00 Weight last 48 hrs Weight 73.482 kg Data NPU 08/11/24 19:01 08/11/24 19:01 A&P Assessment and plan (1) Suicidal ideation: (2) Major depressive disorder, single episode, severe: (3) Suicidal ideation: (4) Hearing deficit: (5) Partner relational problem: (6) Parent-child relational problem: Plan This is a 29-year-old female with recent inpatient hospitalization in June with past outpatient services who presents reporting that she is overwhelmed with the stressors at home and is here because she was not feeling safe prior to admission. She is open to possible medication adjustments 1. Continue current medication. Will consider a mood stabilizer. 2.? Continue every 15 minute checks for safety. 3. Encourage individual, group and milieu therapy 4.??Obtain collateral information. 5. Encourage sober living treatment after discharge at the highest level of care to which she is willing to commit.? Involuntary Hold Information 2 96 Hour Hold: 96 Hour Involuntary Admission: Yes 96 Hour Hold Ending Date: 08/17/24 96 Hour Hold Ending Time: 18:30 Attestations NPU 2 Medical Necessity Statement*: Inpatient hospitalization is medically necessary and?the clinically appropriate intervention at this time.? We will monitor/initiate medications and make changes as indicated.? The patient?s likely length of stay 4-6 days. Coding Level of Care Code Acute Code for Chg Fwd Diagnoses Suicidal ideation R45.851 Major depressive disorder, single episode, severe F32.2 Hearing deficit H91.90 Partner relational problem Z63.0 Parent-child relational problem Z62.820
[2024-08-14 14:00] VITALS: BP 107/58; PULSE 83; RESP 12; TEMP 36.9; O2SAT 97
[2024-08-14] MEDS: OLANZapine 5 mg ODT PO (17:29)
[2024-08-14 19:50] VITALS: BP 110/72; PULSE 87; RESP 16; TEMP 36.6; O2SAT 94
[2024-08-15 06:15] VITALS: BP 117/74; PULSE 69; RESP 16; O2SAT 97
[2024-08-15] MEDS: fluoxetine 20 mg Capsule 40 MG PO (08:13)
[2024-08-15] MEDS: BuSPIRONE 10 mg Tablet PO ×2 (08:14→20:21)
[2024-08-15 14:00] VITALS: BP 103/62; PULSE 92; RESP 17; TEMP 36.4; O2SAT 98
--- NOTE | 2024-08-15 16:12 | P.NPUPN_ITS ---
Subjective NPU 2 Subjective: Patient presented today reporting that she is trying to identify plan for moving forward. She reports that she is looking for a long-term apartment like situation soon as possible the believe she will need to stay in a [facility] until then. She reports having some contact with [facility] and being hopeful for a plan to stay there until she has a place. She plans to work with the social work team on these options. She denied any side effects to the medication. Mental Status Exam 2 MSE Comments: This is a well-nourished well-developed white female in hospital scrubs, with adequate grooming and eye contact. No abnormal or involuntary motor movements in general except for mild psychomotor retardation. She was cooperative with exam in mild distress. It is noteworthy that she is significantly hard of hearing. Speech was decreased rate and volume and somewhat dysarthric reflecting her sounding like a person who has been hard of hearing since . Mood described as a little better, affect was congruent. Thought process was organized. Thought content: patient denies suicidal or homicidal ideation, no delusions reported or noted, and denies auditory or visual hallucinations. Attention and concentration are mostly intact and memory appeared reliable but none were formally tested. She is alert and oriented times 3. Insight and judgment are limited and impulse control is impaired. Vitals/I&O/Wt Last Vital Signs Temp 97.6 F 08/15/24 14:00 Pulse 92 08/15/24 14:00 Resp 17 08/15/24 14:00 BP 103/62 08/15/24 14:00 Pulse Ox 98 08/15/24 14:00 O2 Del Method Room Air 08/14/24 14:00 Weight last 48 hrs Weight 73.482 kg Data NPU 08/11/24 19:01 08/11/24 19:01 A&P Assessment and plan (1) Suicidal ideation: (2) Major depressive disorder, single episode, severe: (3) Suicidal ideation: (4) Hearing deficit: (5) Partner relational problem: (6) Parent-child relational problem: Plan This is a 29-year-old female with recent inpatient hospitalization in June with past outpatient services who presents reporting that she is overwhelmed with the stressors at home and is here because she was not feeling safe prior to admission. She is open to possible medication adjustments 1. Continue current medication. Will consider a mood stabilizer. 2.? Continue every 15 minute checks for safety. 3. Encourage individual, group and milieu therapy 4.??Obtain collateral information. 5. Encourage sober living treatment after discharge at the highest level of care to which she is willing to commit.? Involuntary Hold Information 2 96 Hour Hold: 96 Hour Involuntary Admission: Yes 96 Hour Hold Ending Date: 08/17/24 96 Hour Hold Ending Time: 18:30 Attestations NPU 2 Medical Necessity Statement*: Inpatient hospitalization is medically necessary and?the clinically appropriate intervention at this time.? We will monitor/initiate medications and make changes as indicated.? The patient?s likely length of stay 2-4 days. Coding Level of Care Code Acute Code for g Fwd Diagnoses Suicidal ideation R45.851 Major depressive disorder, single episode, severe F32.2 Hearing deficit H91.90 Partner relational problem Z63.0 Parent-child relational problem Z62.820
[2024-08-15] MEDS: trazodone 100 mg Tablet PO (20:21)
[2024-08-15 21:07] VITALS: BP 119/72; PULSE 139; RESP 18; TEMP 37.2; O2SAT 98
[2024-08-16 06:00] VITALS: BP 114/73; PULSE 67; RESP 18; TEMP 36.8; O2SAT 97
--- NOTE | 2024-08-16 07:55 | PC.NURSE ---
Morning assessment During morning assessment, patient calm and cooperative. Patient's affect is appropriate. Patient states that she really likes the vistaril medication. Patient says that she is trying to not be stressed about moving into a new home on 08/25. Patient denies any needs, questions, concerns. Denies suicidal thoughts.
[2024-08-16] MEDS: fluoxetine 20 mg Capsule 40 MG PO (09:15)
[2024-08-16] MEDS: BuSPIRONE 10 mg Tablet PO (09:16)
[2024-08-16 14:00] VITALS: RESP 16
--- NOTE | 2024-08-16 14:58 | DCPLANNER ---
Imm was given to pt and rights explained and copy was placed in pts file.
[2024-08-16 15:36] VITALS: BP 114/73; PULSE 67; RESP 18; TEMP 36.8; O2SAT 97
== END 2024-08-16 16:01 | disposition home or self-care (01) | DRG 885 ==
LOC: ER 08-12 03:29 → NP 08-12 14:30
PROVIDERS: Admitting Provider Psychiatry & Neurology Psychiatry; Emergency Provider Emergency Medicine; Visit Provider Psychiatry & Neurology Psychiatry
DX: F32.2 Major depressive disorder, single episode, severe without psychotic features (principal); R45.851 Suicidal ideations; F17.210 Nicotine dependence, cigarettes, uncomplicated; F17.290 Nicotine dependence, other tobacco product, uncomplicated; H91.90 Unspecified hearing loss, unspecified ear; Z63.0 Problems in relationship with spouse or partner
CPT/HCPCS: 0241U; 36415; 80053; 80306; 80307; 81001; 81025; 84443; 85025; 90471; 90686; 93005; 97150; 97165; 99285

== ENCOUNTER → 2024-11-01 13:13 | Outpatient (BNVA) | payer MEDICARE, SELFPAY | PROVIDERS: PCP Nurse Practitioner Family; Visit Provider Nurse Practitioner Family | DX: R35.0 Frequency of micturition (principal) | CPT/HCPCS: 81000 ==

== ENCOUNTER → 2024-11-14 13:57 | Outpatient (BNVA) | payer MEDICARE, SELFPAY | PROVIDERS: PCP Nurse Practitioner Family; Visit Provider Nurse Practitioner Family | DX: N30.00 Acute cystitis without hematuria (principal); R35.0 Frequency of micturition | CPT/HCPCS: 81000 ==

== ENCOUNTER 2025-01-20 20:13 | Emergency (ER) | payer MEDICARE, MEDICAID, SELFPAY ==
[2025-01-20 20:36] VITALS: BP 129/75; PULSE 87; RESP 14; TEMP 36.6; O2SAT 98
[2025-01-20 20:51] LABS: Basophils % 0.4 %; Eosinophils # 0.1 10^3/uL (0.0-0.8); Eosinophils % 1.2 %; Hematocrit 38.2 % (36-47); Lymphocytes # 2.2 10^3/uL (0.8-4.8); Lymphocytes % 20.2 %; Mean Corpuscular HGB Conc 34.3 g/dL (30-55); Mean Corpuscular Hemoglobin 30.4 pg (27-33); Mean Corpuscular Volume 88.6 fl (85-98); Mean Platelet Volume 11.6 fL (7.4-10.4); Monocytes # 0.5 10^3/uL (0.2-0.9); Monocytes % 4.3 %; Neutrophils # 8.03 10^3/uL (1.8-7.7); Neutrophils % 73.4 %; Nucleated Red Blood Cells % 0 %; Platelet Count 249 10^3/cmm (157-399); Red Blood Count 4.31 10^6/uL (3.85-5.65); Red Cell Distribution Width 12.7 % (12.1-15.1); White Blood Count 10.93 10^3/uL (3.29-11.43)
[2025-01-20 21:10] LABS: Blood Urea Nitrogen 10 mg/dL (6-20); Calcium 9.6 mg/dL (8.5-10.5); Carbon Dioxide 22 mmol/L (22-29); Chloride 104 mmol/L (98-107); Glomerular Filtration Rate 97.6 mL/min (90-130); Glucose 116 mg/dL (65-115); Osmolality Calculated 284 mOsm/kg (285-295); Sodium 137 mmol/L (136-145)
[2025-01-20 21:17] LABS: Anion Gap 14.4 (5-19); Potassium 3.4 mmol/L (3.5-5.1)
--- NOTE | 2025-01-20 22:23 | USR_ITS ---
PROCEDURE INFORMATION: Exam: US , Limited Exam date and time: 01/20/2025 11:46 PM Age: 29 years old Clinical indication: Lmp or gestational age (in weeks): 14w1d; Antepartum complications; Bleeding; ; Additional info: 16 weeks cramping LABS AND CLINICAL REPORTS: Gestational age (Established): 14 w 1 d Estimated due date (Established): 07/20/2025 TECHNIQUE: Imaging protocol: Real-time ultrasound of the maternal uterus with image documentation. Exam focused on the clinical indication. COMPARISON: CT abdomen pelvis w con* [id number] 05/28/2024 11:40 AM FINDINGS: Gestation: Single intrauterine . heart rate: 182 bpm MATERNAL: Cervix: Cervical length measures 3.1 cm. Cervix is closed. US/US OB limited [id number] IMPRESSION: Single live intrauterine .
[2025-01-21 00:31] LABS: Bilirubin Urine Negative (Negative); Blood Urine 3+ (Negative); Glucose Urine UA Negative (Normal); Ketones Urine Trace (Negative); Leukocyte Esterase Urine 1+ (Negative); Nitrate Urine Negative (Negative); Protein Urine Trace (Negative); Specific Gravity, Urine 1.029 (1.005-1.030); Urine Appearance Cloudy (CLEAR); Urine Color Yellow (Yellow); pH Urine 6.5 (5-7)
[2025-01-21 00:36] LABS: Add Urine Microscopic? YES; Bacteria Urine Trace /hpf; Hyaline Casts Urine 1.65 /lpf; RBC Urine 0-2 /hpf (0-2)
[2025-01-21 00:53] LABS: Add Urine Culture? Yes
--- NOTE | 2025-01-21 01:54 | W.ED.PREGNAN ---
HPI - General: Chief complaint: Vaginal Bleeding Stated complaint: 16 wk preg severe cramping Bleeding Time Seen by Provider: 01/20/25 23:39 Source: patient and family Mode of arrival: ambulatory Limitations: language barrier (deaf, declined ASL translation. reads lips. mother there to help. ) History of Present Illness: Patient is bleeding and cramping with . She is 14 weeks 1 day. She is a G2, P1 previous Julissa was full-term no complications. She goes to [facility] for obstetric care. Related Data Previous Rx's ?Medication ?Instructions ?Recorded buspirone 10 mg tablet 10 mg PO BID 30 days #60 tabs 11/01/24 fluoxetine 40 mg capsule 40 mg PO DAILY 30 days #30 caps 11/01/24 nitrofurantoin 100 mg PO Q12H 7 days #14 caps 11/01/24 monohydrate/macrocrystals 100 mg capsule (Macrobid) trazodone 100 mg tablet 100 mg PO BEDTIME PRN Sleep 30 11/01/24 days #30 tabs Allergies Allergy/AdvReac Type Severity Reaction Status Date / Time No Known Allergies Allergy Verified 01/20/25 20:40 Review of Systems General: Reports: 10 or more systems reviewed and unremarkable except in HPI and below PFSH ED PFSH: Medical History Depression Encounter to establish care PID (pelvic inflammatory disease) No pertinent family history Surgical History No pertinent past surgical history Social History Smoking and tobacco/nicotine status: current every day tobacco/nicotine user (vapes and cigerretes) Physical Exam Narrative: EXAM NARRATIVE: 29-year-old female sitting up in bed in no acute distress, normal body habitus. Normocephalic atraumatic, neck with full range of motion, chest rises symmetric, pulses are regular rate and rhythm radial. Abdomen nontender. Moving all 4 extremity spontaneously without issue. Gait normal. Course Vital Signs: Vital signs: Vital Signs Temperature 97.8 F 01/20/25 20:36 Pulse Rate 87 01/20/25 20:36 Respiratory Rate 14 01/20/25 20:36 Blood Pressure 129/75 01/20/25 20:36 Pulse Oximetry 98 01/20/25 20:36 Oxygen Delivery Me thod Room Air 01/20/25 20:36 MDM - OB/Uterine Contractions Medical Decision Making Ultrasound done, positive heart tones at 182. Good movement on imaging. Suspect mild subchorionic hemorrhage is already resolved. Will have patient follow-up with CHIEF INFORMATION OFFICER. Pelvic rest advised. Medical Records I reviewed the patient's medical records. Lab Data I reviewed the patient's lab results. 01/20/25 20:37 01/20/25 20:37 Radiology Impressions Obstetrics Ultrasound 01/20/25 22:23 IMPRESSION: Single live intrauterine . Laboratory Results WBC 10.93 10^3/uL (3.29-11.43) 01/20/25 20:37 RBC 4.31 10^6/uL (3.85-5.65) 01/20/25 20:37 Hgb 13.10 g/dL (11.27-16.99) 01/20/25 20:37 Hct 38.2 % (36-47) 01/20/25 20:37 MCV 88.6 fl (85-98) 01/20/25 20:37 MCH 30.4 pg (27-33) 01/20/25 20:37 MCHC 34.3 g/dL (30-55) 01/20/25 20:37 RDW 12.7 % (12.1-15.1) 01/20/25 20:37 Plt Count 249 10^3/cmm (157-399) 01/20/25 20:37 MPV 11.6 fL (7.4-10.4) H 01/20/25 20:37 Neut % (Auto) 73.4 % 01/20/25 20:37 Lymph % (Auto) 20.2 % 01/20/25 20:37 Hayes % (Auto) 4.3 % 01/20/25 20:37 Eos % (Auto) 1.2 % 01/20/25 20:37 Baso % (Auto) 0.4 % 01/20/25 20:37 Neut # (Auto) 8.03 10^3/uL (1.8-7.7) H 01/20/25 20:37 Lymph # (Auto) 2.2 10^3/uL (0.8-4.8) 01/20/25 20:37 Hayes # (Auto) 0.5 10^3/uL (0.2-0.9) 01/20/25 20:37 Eos # (Auto) 0.1 10^3/uL (0.0-0.8) 01/20/25 20:37 Baso # (Auto) 0.0 10^3/uL (0.0-0.1) 01/20/25 20:37 Nucleated RBC % (auto) 0 % 01/20/25 20:37 Nucleated RBCs # 0.0 /100WBC 01/20/25 20:37 Sodium 137 mmol/L (136-145) 01/20/25 20:37 Potassium 3.4 mmol/L (3.5-5.1) L 01/20/25 20:37 Chloride 104 mmol/L (98-107) 01/20/25 20:37 Carbon Dioxide 22 mmol/L (22-29) 01/20/25 20:37 Anion Gap 14.4 (5-19) 01/20/25 20:37 BUN 10 mg/dL (6-20) 01/20/25 20:37 Creatinine 0.7 mg/dL (0.5-0.9) 01/20/25 20:37 GFR Calculation 97.6 mL/min (90-130) 01/20/25 20:37 Glucose 116 mg/dL (65-115) H 01/20/25 20:37 Calculated Osmolality 284 mOsm/kg (285-295) L 01/20/25 20:37 Calcium 9.6 mg/dL (8.5-10.5) 01/20/25 20:37 Urine Color Yellow (Yellow) 01/21/25 00:09 Urine Appearance Cloudy (CLEAR) A 01/21/25 00:09 Urine pH 6.5 (5-7) 01/21/25 00:09 Ur Specific Cyclone 1.029 (1.005-1.030) 01/21/25 00:09 Urine Protein Trace (Negative) A 01/21/25 00:09 Urine Glucose (UA) Negative (Normal) 01/21/25 00:09 Urine Ketones Trace (Negative) 01/21/25 00:09 Urine Blood 3+ (Negative) A 01/21/25 00:09 Urine Nitrate Negative (Negative) 01/21/25 00:09 Urine Bilirubin Negative (Negative) 01/21/25 00:09 Urine Urobilinogen 1.0 mg/dL (Negative) 01/21/25 00:09 Ur Leukocyte Esterase 1+ (Negative) A 01/21/25 00:09 Urine RBC 0-2 /hpf (0-2) 01/21/25 00:09 Urine WBC 11-20 /hpf (0-5) H 01/21/25 00:09 Ur Squamous Epith Cells 6-10 /hpf (0-5) 01/21/25 00:09 Amorphous Sediment Not Reportable 01/21/25 00:09 Urine Bacteria Trace /hpf (NONE) 01/21/25 00:09 Hyaline Casts 1.65 /lpf 01/21/25 00:09 All radiology interpretation(s) finalized by discharge Discharge Plan Discharge Patient Disposition: Home Clinical Impression: Vaginal bleeding in patient after first trimester Condition: Stable Prescriptions: No Action trazodone 100 mg tablet 100 mg PO BEDTIME PRN (Reason: Sleep) 30 Days Qty: 30 1RF nitrofurantoin monohyd/m-cryst [Macrobid] 100 mg capsule 100 mg PO Q12H 7 Days Qty: 14 0RF Rx Instructions: must administer with a meal/food fluoxetine 40 mg capsule 40 mg PO DAILY 30 Days Qty: 30 1RF buspirone 10 mg tablet 10 mg PO BID 30 Days Qty: 60 1RF Discharge Orders: Discharge ED (Routine); Ordered 01/21/25 Ordered By: Calvin Costa Referrals: Ricardo Najera MD [Primary Care Provider, Family Practice] Patient Instructions: Non-Threatening First Trimester Vaginal Bleed (ED) Activity Restrictions/Additional Instructions: Please notify your CHIEF INFORMATION OFFICER of the bleeding, so they can follow your care closely. Pelvic rest until cleared by CHIEF INFORMATION OFFICER. Print Language: Estonian Coding Level of Care Code ED Spray Gun Striper for Benito Lewis
[2025-01-21 02:10] VITALS: BP 117/74; PULSE 86; O2SAT 100
[2025-01-21 02:16] VITALS: BP 117/74; PULSE 86; O2SAT 100
== END 2025-01-21 02:17 | disposition home or self-care (01) ==
PROVIDERS: Emergency Provider Emergency Medicine; PCP Family Medicine
DX: O20.9 Hemorrhage in early pregnancy, unspecified (principal); Z3A.14 14 weeks gestation of pregnancy; F17.210 Nicotine dependence, cigarettes, uncomplicated; F17.290 Nicotine dependence, other tobacco product, uncomplicated
CPT/HCPCS: 36415; 76815; 80048; 81001; 85025; 87086; 99284

== ENCOUNTER 2025-02-18 10:49 | Emergency (ER) | payer MEDICARE, MEDICAID, SELFPAY ==
--- NOTE | 2025-02-18 11:09 | USR_ITS ---
PROCEDURE INFORMATION: Exam: US , Limited Exam date and time: 02/18/2025 11:50 AM Age: 29 years old Clinical indication: Lmp or gestational age (in weeks): 18w2d; Antepartum complications; Decreased movements; Fetus 1; ; Additional info: Decreased movement LABS AND CLINICAL REPORTS: Gestational age (Established): 18 w 2 d Estimated due date (Established): 07/20/2025 TECHNIQUE: Imaging protocol: Real-time ultrasound of the maternal uterus with image documentation. Exam focused on the clinical indication. COMPARISON: US OB limited [id number] 01/20/2025 11:46 PM FINDINGS: Gestation: Single intrauterine gestation. heart rate: 167 bpm presentation and position: Cephalic presentation. Placenta: Anterior grade 1 placenta. No previa. MATERNAL: Cervix: Cervical length measures 3.8 cm. Intraperitoneal space: No pelvic free fluid. Urinary bladder: The maternal bladder is unremarkable. US/US OB limited [id number] IMPRESSION: Single intrauterine gestation. No apparent complications. cardiac activity is present.
[2025-02-18 11:10] VITALS: BP 111/70; PULSE 85; RESP 18; TEMP 36.7; O2SAT 98; BMI 29.8
--- NOTE | 2025-02-18 11:52 | W.ED.GENADLT ---
HPI - General Adult General: Chief complaint: General Medical Stated complaint: 19 wk preg-decreased baby movement Time Seen by Provider: 02/18/25 11:14 History of Present Illness: 29-year-old female who is approximately 19 weeks who presents emergency room because she has had decreased movements over the last 1.5 days. She said she had some abdominal cramping and then stopped having movements. No vaginal bleeding or discharge. Currently no abdominal pain. Related Data Previous Rx's ?Medication ?Instructions ?Recorded buspirone 10 mg tablet 10 mg PO BID 30 days #60 tabs 11/01/24 fluoxetine 40 mg capsule 40 mg PO DAILY 30 days #30 caps 11/01/24 nitrofurantoin 100 mg PO Q12H 7 days #14 caps 11/01/24 monohydrate/macrocrystals 100 mg capsule (Macrobid) trazodone 100 mg tablet 100 mg PO BEDTIME PRN Sleep 30 11/01/24 days #30 tabs Allergies Allergy/AdvReac Type Severity Reaction Status Date / Time No Known Allergies Allergy Verified 01/20/25 20:40 Review of Systems Narrative: Constitutional symptoms: Negative except as documented in HPI. Skin symptoms: Negative except as documented in HPI. Eye symptoms: Negative except as documented in HPI. ENMT symptoms: Negative except as documented in HPI. Respiratory symptoms: Negative except as documented in HPI. Cardiovascular symptoms: Negative except as documented in HPI. Gastrointestinal symptoms: Negative except as documented in HPI. Genitourinary symptoms: Negative except as documented in HPI. Musculoskeletal symptoms: Negative except as documented in HPI. Neurologic symptoms: Negative except as documented in HPI. Psychiatric symptoms: Negative except as documented in HPI. Endocrine symptoms: Negative except as documented in HPI. PFSH ED PFSH: Medical History Depression Encounter to establish care PID (pelvic inflammatory disease) No pertinent family history Surgical History No pertinent past surgical history Social History Smoking and tobacco/nicotine status: current every day tobacco/nicotine user (vapes and cigerretes) Physical Exam Narrative: EXAM NARRATIVE: General: Alert, no acute distress. Skin: Warm, dry. Head: Normocephalic, atraumatic. Neck: Supple, trachea midline. Eye: Extraocular movements are intact. Ears, nose, mouth and throat: mucosa moist. Cardiovascular: Regular, Normal peripheral perfusion. Respiratory: Lungs are clear to auscultation, respirations are non-labored, breath sounds are equal, Symmetrical chest wall expansion. Gastrointestinal: Soft, Nontender, Non distended Musculoskeletal: Normal ROM, no deformity. Neurological: Alert and oriented, No focal neurological deficit observed. Psychiatric: Cooperative, appropriate mood & affect. Course Vital Signs: Vital signs: Vital Signs Temperature 98.1 F 02/18/25 11:10 Pulse Rate 85 02/18/25 11:10 Respiratory Rate 18 02/18/25 11:10 Blood Pressure 111/70 02/18/25 11:10 Pulse Oximetry 98 02/18/25 11:10 Oxygen Delivery Me thod Room Air 02/18/25 11:10 MDM - General Adult Medical Decision Making Medical decision making: Differential diagnosis including but not limited to and based on the above HPI, review of systems and physical exam: With decreased movement would have concern for demise so an ultrasound was ordered to evaluate condition. Orders placed to evaluate differential diagnosis based on the above differential, HPI and physical exam I reviewed the patient's medical record. Reexamination: Patient remained stable. No increased work of breathing. No altered mental status. No focal motor deficits. Ultrasound Limited : Normal-appearing fetus. This was reviewed and interpreted by myself the emergency room physician. I also reviewed the radiology report. Assessment and plan: Normal 19-week . - Discharged home - Discussed plan with patient. Answered any questions. - Evaluation and treatment of this problem were appropriate in the emergency setting. All radiology interpretation(s) finalized by discharge Discharge Plan Discharge Patient Disposition: Home Clinical Impression: related condition in second trimester Condition: Stable Prescriptions: No Action trazodone 100 mg tablet 100 mg PO BEDTIME PRN (Reason: Sleep) 30 Days Qty: 30 1RF nitrofurantoin monohyd/m-cryst [Macrobid] 100 mg capsule 100 mg PO Q12H 7 Days Qty: 14 0RF Rx Instructions: must administer with a meal/food fluoxetine 40 mg capsule 40 mg PO DAILY 30 Days Qty: 30 1RF buspirone 10 mg tablet 10 mg PO BID 30 Days Qty: 60 1RF Discharge Orders: Discharge ED (Routine); Ordered 02/18/25 Ordered By: Gricelda Damian Referrals: Ricardo Najera MD [Primary Care Provider, Family Practice] Discharge Diet: Usual diet Discharge Activity: Increase activity as tolerated Patient Instructions: at 19 to 22 Weeks (ED), Opioid Safety, Pain Management Activity Restrictions/Additional Instructions: Thank you for choosing [facility] for your healthcare needs today. You have been screened and evaluated and felt safe for discharge. Health conditions do change or evolve sometimes and as such it is important that you follow up with your Primary Doctor to be re checked, 3-5 days is a general good time frame for follow up. You are always welcome to return to the ED for re assessment if your symptoms are worsening or you have new concerns Print Language: North Korean Coding Level of Care Code ED Mold Worker for Benito Lewis
[2025-02-18 12:07] VITALS: BP 111/76; PULSE 74; O2SAT 98
== END 2025-02-18 12:09 | disposition home or self-care (01) ==
PROVIDERS: Emergency Provider Emergency Medicine; PCP Family Medicine
DX: O26.892 Other specified pregnancy related conditions, second trimester (principal); R10.9 Unspecified abdominal pain; Z3A.19 19 weeks gestation of pregnancy; F17.290 Nicotine dependence, other tobacco product, uncomplicated; F17.210 Nicotine dependence, cigarettes, uncomplicated
CPT/HCPCS: 76815; 99284

== ENCOUNTER 2025-04-11 14:20 | Outpatient (CLI) | payer MEDICARE, MEDICAID, SELFPAY ==
[2025-04-11] VITALS (10 sets, daily range): BP systolic 97–119; BP diastolic 50–68; PULSE 68–82; RESP 18
--- NOTE | 2025-04-11 15:27 | USR_ITS ---
PROCEDURE INFORMATION: Exam: US , Limited Exam date and time: 04/11/2025 4:10 PM Age: 29 years old Clinical indication: Screening exam; Routine US, uterus; Additional info: Vaginal bleeding, cramping, cervical length LABS AND CLINICAL REPORTS: Gestational age (Established): 25 w 5 d Estimated due date (Established): 07/20/2025 TECHNIQUE: Imaging protocol: Real-time ultrasound of the maternal uterus with image documentation. Exam focused on the clinical indication. COMPARISON: US OB >= 14 weeks fetus [id number] 03/08/2025 1:16 PM FINDINGS: Gestation: Single intrauterine gestation. heart rate: 162 bpm presentation and position: Cephalic presentation. Placenta: No placenta previa. Placenta grade: Anterior fundal grade 1 placenta. MATERNAL: Cervix: Cervix appears closed but the cervix is suboptimally evaluated and the endocervical canal is not visible. Cervical length cannot be accurately measured. Urinary bladder: The maternal bladder is decompressed. US/US OB limited [id number] IMPRESSION: 1. Single intrauterine gestation. cardiac activity is present. 2. Cervix appears closed but evaluation is limited. Cervical length cannot be accurately measured.
[2025-04-11 15:30] LABS: Glucose Urine UA Negative (Normal); Nitrate Urine Negative (Negative); Specific Gravity, Urine 1.027 (1.005-1.030)
[2025-04-11] MEDS: NIFEdipine ER (24 hr) 30 mg Tablet PO (17:28)
--- NOTE | 2025-04-11 17:44 | PC.NURSE ---
Prescription called to [facility] and left on the prescriber voicemail at this time.
== END 2025-04-11 17:32 | disposition home or self-care (01) ==
LOC: OPOB 14:21 → OBGYN 14:21
PROVIDERS: PCP Family Medicine; Visit Provider Family Medicine
DX: O46.90 Antepartum hemorrhage, unspecified, unspecified trimester (principal); Z3A.00 Weeks of gestation of pregnancy not specified; R25.2 Cramp and spasm
CPT/HCPCS: 76815; 81001; 87086; 99211; J7120; J9999

== ENCOUNTER 2025-06-09 23:27 | Outpatient (CLI) | payer MEDICARE, MEDICAID, SELFPAY ==
[2025-06-09 23:33] VITALS: BMI 28.8
[2025-06-09 23:37] VITALS: BP 117/69; PULSE 76
[2025-06-09 23:53] VITALS: BP 118/75; PULSE 73
[2025-06-10] VITALS (9 sets, daily range): BP systolic 107–119; BP diastolic 56–77; PULSE 63–85; RESP 17; TEMP 36.4; O2SAT 99
== END 2025-06-10 02:20 | disposition home or self-care (01) ==
LOC: OPOB 23:28 → OBGYN 23:28
PROVIDERS: PCP Family Medicine; Visit Provider Family Medicine
DX: O26.899 Other specified pregnancy related conditions, unspecified trimester (principal); Z3A.00 Weeks of gestation of pregnancy not specified; R10.9 Unspecified abdominal pain
CPT/HCPCS: 59025; 99211

== ENCOUNTER 2025-06-14 10:00 | Outpatient (CLI) | payer MEDICARE, MEDICAID, SELFPAY ==
[2025-06-14] VITALS (11 sets, daily range): BP systolic 116–129; BP diastolic 60–81; PULSE 49–83; RESP 17; O2SAT 98
[2025-06-14 10:33] LABS: Glucose Urine UA Negative (Normal); Nitrate Urine Negative (Negative); Specific Gravity, Urine 1.019 (1.005-1.030)
[2025-06-14 10:51] LABS: Nitrazine Paper, PH Negative
[2025-06-14] MEDS: NIFEdipine ER (24 hr) 30 mg Tablet PO (10:55)
[2025-06-14] MEDS: betamethasone susp 6 mg/mL 5 mL 12 MG IM (12:21)
== END 2025-06-14 12:35 | disposition home or self-care (01) ==
LOC: OPOB 10:01 → OBGYN 10:01
PROVIDERS: PCP Family Medicine; Visit Provider Family Medicine
DX: O26.899 Other specified pregnancy related conditions, unspecified trimester (principal); Z3A.00 Weeks of gestation of pregnancy not specified; R10.9 Unspecified abdominal pain
CPT/HCPCS: 59025; 81001; 83986; 87086; 96372; 99211; J0702; J7120; J9999

== ENCOUNTER 2025-06-19 10:14 | Outpatient (CLI) | payer MEDICARE, MEDICAID, SELFPAY ==
[2025-06-19 10:31] VITALS: BP 124/74; PULSE 80
[2025-06-19 10:33] VITALS: BMI 29.0
[2025-06-19 10:37] VITALS: RESP 15
[2025-06-19 10:47] VITALS: BP 117/72; PULSE 77
[2025-06-19 10:58] LABS: Nitrazine Paper, PH Negative
[2025-06-19 11:01] VITALS: BP 120/73; PULSE 88
[2025-06-19 11:10] VITALS: BP 120/73; PULSE 88; RESP 15
== END 2025-06-19 11:10 | disposition home or self-care (01) ==
LOC: OPOB 10:14 → OBGYN 10:15
PROVIDERS: PCP Family Medicine; Visit Provider Family Medicine
DX: O26.899 Other specified pregnancy related conditions, unspecified trimester (principal); Z3A.00 Weeks of gestation of pregnancy not specified; N89.8 Other specified noninflammatory disorders of vagina
CPT/HCPCS: 59025; 83986; 84112; 99211

== ENCOUNTER 2025-06-30 21:05 | Outpatient (CLI) | payer MEDICARE, MEDICAID, SELFPAY ==
[2025-06-30 21:05] VITALS: BMI 29.5
[2025-06-30 21:22] VITALS: BP 120/72; PULSE 101
[2025-06-30 21:40] LABS: Glucose Urine UA Negative (Normal); Nitrate Urine Negative (Negative); Specific Gravity, Urine 1.021 (1.005-1.030)
[2025-06-30 21:47] VITALS: BP 117/70; PULSE 96
[2025-06-30 22:02] VITALS: BP 100/57; PULSE 81
[2025-06-30 22:18] VITALS: BP 100/56; PULSE 83
[2025-06-30] MEDS: nitrofurantoin SR (BID) 100 mg Capsule PO (22:35)
[2025-06-30 22:39] VITALS: BP 100/56; PULSE 83; RESP 16; TEMP 36.1; O2SAT 98
== END 2025-06-30 22:39 | disposition home or self-care (01) ==
LOC: OPOB 21:10 → OBGYN 21:11
PROVIDERS: PCP Family Medicine; Visit Provider Family Medicine
DX: O26.899 Other specified pregnancy related conditions, unspecified trimester (principal); Z3A.00 Weeks of gestation of pregnancy not specified; R10.9 Unspecified abdominal pain
CPT/HCPCS: 59025; 81001; 83986; 87086; 99211; J9999

== ENCOUNTER 2025-07-02 16:09 | Outpatient (CLI) | payer MEDICARE, MEDICAID, SELFPAY ==
[2025-07-02 16:22] VITALS: BP 130/75; PULSE 100
[2025-07-02 16:28] VITALS: BMI 29.5
[2025-07-02 16:37] VITALS: BP 119/73; PULSE 96
[2025-07-02 16:52] VITALS: BP 113/73; PULSE 99
[2025-07-02 17:07] VITALS: BP 119/73; PULSE 96
== END 2025-07-02 17:21 | disposition home or self-care (01) ==
LOC: OPOB 16:10 → OBGYN 16:10
PROVIDERS: PCP Family Medicine; Visit Provider Family Medicine
DX: O36.8190 Decreased fetal movements, unspecified trimester, not applicable or unspecified (principal); O46.90 Antepartum hemorrhage, unspecified, unspecified trimester; Z3A.00 Weeks of gestation of pregnancy not specified
CPT/HCPCS: 59025; 99211

== ENCOUNTER 2025-07-07 05:39 | Inpatient (IN) | payer MEDICARE, MEDICAID, SELFPAY ==
[2025-07-07] VITALS (66 sets, daily range): BP systolic 99–153; BP diastolic 53–97; PULSE 61–100; RESP 16–18; TEMP 36.8–36.9; O2SAT 96–99
[2025-07-07 05:41] LABS: Hematocrit 34.0 % (36-47); Hemoglobin 11.20 g/dL (11.27-16.99); Mean Corpuscular HGB Conc 32.9 g/dL (30-55); Mean Corpuscular Hemoglobin 28.9 pg (27-33); Mean Corpuscular Volume 87.6 fl (85-98); Nucleated Red Blood Cells % 0 %; Platelet Count 188 10^3/cmm (157-399); Red Blood Count 3.88 10^6/uL (3.85-5.65); White Blood Count 15.45 10^3/uL (3.29-11.43)
--- NOTE | 2025-07-07 06:45 | PM.OBGYHP ---
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 Patient was noted to be Avanza dilated at 7 cm on arrival. Patient's care was complicated by contractions for which she took nifedipine until 37 weeks gestational age. Patient's workup was unremarkable. Patient is GBS negative. Present Details : 3 Para: 2 Labs Blood type OB HPI: O (+) positive Rubella: Immune RPR: Negative GBS: Negative Review of Systems Narrative: Constitutional symptoms: Negative except as documented in HPI. Skin symptoms: Negative except as documented in HPI. Eye symptoms: Negative except as documented in HPI. ENMT symptoms: Negative except as documented in HPI. Respiratory symptoms: Negative except as documented in HPI. Cardiovascular symptoms: Negative except as documented in HPI. Gastrointestinal symptoms: Negative except as documented in HPI. Genitourinary symptoms: Negative except as documented in HPI. Musculoskeletal symptoms: Negative except as documented in HPI. Neurologic symptoms: Negative except as documented in HPI. Psychiatric symptoms: Negative except as documented in HPI. Endocrine symptoms: Negative except as documented in HPI. Medications/Allergies Home Medications ?Medication ?Instructions ?Recorded ?Confirmed ?Last Taken ?Type 1 tab PO DAILY 06/30/25 07/07/25 07/06/25 History Allergies Allergy/AdvReac Type Severity Reaction Status Date / Time No Known Allergies Allergy Verified 06/30/25 21:18 PFS RADIO DISPATCHER PFSH: Medical History (Updated 07/07/25 @ 06:51 by Ricardo Najera MD) Depression Encounter to establish care PID (pelvic inflammatory disease) No pertinent family history Surgical History No pertinent past surgical history Social History Smoking and tobacco/nicotine status: current every day tobacco/nicotine user (vapes and cigerretes) Vitals/I&O/Wt Last Vital Signs Pulse 83 07/07/25 06:33 BP 129/68 07/07/25 06:33 O2 Del Method Room Air 07/07/25 06:20 Weight last 48 hrs Weight 79.379 kg Physical Exam Const: COMMON NORMALS: patient oriented x3, healthy appearing and alert Resp: COMMON NORMALS: normal respiratory effort and No retractions Cardio: COMMON NORMALS: no JVD, regular rate and regular rhythm GI: OTHER: Gravid uterus : MANUAL OB EXAM: dilated 9 cm and effaced fully Extremity: GENERAL: Yes edema Neuro: COMMON NORMALS: moves all extremities, no focal motor deficits and no sensory deficits noted Psych: COMMON NORMALS: mental status grossly normal Data 07/07/25 05:30 Results Labs OB ([facility]): Obstetrics 04/11/25 Blood Type O Positive Today Antibody Screen Negative Today Hct, (36-47) 34.0 % L Today Hgb, (11.27-16.99) 11.20 g/dL L Today Rho(D) Type Rh positive Today Plt Count, (157-399) 188 10^3/cmm Today TSH, (0.27-4.20) 6.81 uIU/mL H 08/11/24 C.trachomatis RNA (TMA), (NOT DETECTED) Not detected 06/21/24 N.gonorrhoeae RNA (TMA), (NOT DETECTED) Not detected 06/21/24 T. vaginalis Amp RNA, (NOT DETECTED) Not detected 06/21/24 Chlamydia/GC Comment See note 06/21/24 HCG, Qual, (Negative) Negative 08/11/24 Urine Opiates Screen, (Negative) Negative ng/mL 08/11/24 Ur Barbiturates Screen, (Negative) Negative ng/mL 08/11/24 Ur Phencyclidine Scrn, (Negative) Negative ng/mL 08/11/24 Ur Amphetamines Screen, (Negative) Negative ng/mL 08/11/24 U Benzodiazepines Scrn, (Negative) Negative ng/mL 08/11/24 Urine Cocaine Screen, (Negative) Negative ng/mL 08/11/24 U Marijuana (THC) Screen, (Negative) Positive ng/mL H 08/11/24 Micro Urine Specimen 06/30/25 A&P Assessment and plan 1. Term , repeat: The patient arrived at 7 cm and has progressed to 9 cm. The patient is awaiting epidural. Continue with routine labor management. Plan on rupture membranes once epidural has been placed. PDMP PDMP Reviewed: Not Reviewed Attestations Medical Necessity Statement*: Patient admitted for labor. Anticipate at least 1 midnight stay Coding Level of Care Code Acute Code for Chg Fwd Diagnoses Term , repeat Z34.90
[2025-07-07] MEDS: ROPivacaine premix 200 MG/100 ML PREMIX 13 MG EPIDURAL (06:58)
--- NOTE | 2025-07-07 07:11 | ANES.PREANE2 ---
Pre-Anesthetic Assessment Height/Weight: Height 1.63 m Weight 79.379 kg Pulse BP Pulse Ox O2 Del Method 82 114/72 96 Room Air 07/07/25 07:08 07/07/25 07:06 07/07/25 07:08 07/07/25 06:20 Preop Diagnosis: Gravid uterus Epidural Familial anesthetic complications: none Was Beta Venessa taken within 24 hours: N/A Was Clonidine taken within 24 hours: N/A Social Tobacco and No alcohol Exam alert, oriented x 3, clear to auscultation bilaterally and regular rate & rhythm Airway Cervical ROM: within normal limits Mallampati: Class II Dentition: full History/ROS No significant complaints Pulmonary None reported CV/HEM None reported None reported Hepatic None reported GI None reported Metabolic None reported Musc/skel None reported Neuropsych Low intellect Anesthetic Plan ASA status: 2 Anesthesia: Regional (specify below) Risk of > 500 ml blood loss (7ml/kg in children): No Medications/Allergies Home Medications ?Medication ?Instructions ?Recorded ?Confirmed ?Last Taken ?Type 1 tab PO DAILY 06/30/25 07/07/25 07/06/25 History Allergies Allergy/AdvReac Type Severity Reaction Status Date / Time No Known Allergies Allergy Verified 06/30/25 21:18 Current Medications Generic Name Dose Route Start Last Admin Trade Name Freq PRN Reason Stop Dose Admin Ropivacaine 200 mg in 100 mls @ 10 mls/hr 07/07/25 05:30 07/07/25 06:58 Naropin Premix EPIDURAL 13 mls/hr .Q10H GARRETT Administration Sodium Chloride 1,000 mls @ 999 mls/hr 07/07/25 05:24 07/07/25 05:40 Sodium Chloride 0.9% IV 999 mls/hr .Q1H1M PRN Administration See label comments Dextrose/Lactated Ringer's 1,000 mls @ 125 mls/hr 07/07/25 05:30 07/07/25 06:44 Dextrose 5%-Lactated Ringers IV 125 mls/hr .Q8H GARRETT Administration PFSH Anesthesia Medical History (Updated 07/07/25 @ 06:51 by Ricardo Najera MD) Depression Encounter to establish care PID (pelvic inflammatory disease) No pertinent family history Surgical History No pertinent past surgical history Social History Smoking and tobacco/nicotine status: current every day tobacco/nicotine user (vapes and cigerretes) Female Reproductive History : 3 Data Anesthesia 07/07/25 05:30 Short CBC 07/07/25 Range/Units 05:30 WBC 15.45 H (3.29-11.43) 10^3/uL Hgb 11.20 L (11.27-16.99) g/dL Hct 34.0 L (36-47) % MCV 87.6 (85-98) fl Plt Count 188 (157-399) 10^3/cmm Neut % (Auto) 81.9 % Neut # (Auto) 12.66 H (1.8-7.7) 10^3/uL Blood Bank 07/07/25 05:30 Blood Type O Positive Rho(D) Type Rh positive Antibody Screen Negative Anesthesia Procedures Epidural Time Out Performed: Yes Consents Signed: No Consent Needed Consent: from patient, risks and benefits reviewed and patient agrees to proceed Lumbar Level: L4-L5 Epidural position: sitting Epidural procedure: sterile prep of area, 1% lidocaine to numb the area, 18 g needle, negative for paresthesia passed, neg for paresthesia, test dose given, 1.5% xylocaine 1:200k epi, 0.2% Ropivacaine bolus ml, placed PCEA, no systemic response, sterile dressing applied, L.U.D. no apparent complications and 0.2% Ropiavacaine @ mls/hr Additional Comments: ZACHARY 4.5cm
--- NOTE | 2025-07-07 08:12 | PM.DELIVERY ---
Delivery Note: Date of delivery: July 07, 2025 Pre-delivery diagnoses: Term intrauterine Post-delivery diagnoses: Same, viable male Procedure: Spontaneous vaginal delivery Op report anesthesia: Epidural Delivering Physician: Basim Najera MD Estimated blood loss (mL): 150 Pre-Delivery Course: This is a 30-year-old G3, P3 that presented at 38 weeks 1 day with active contractions. The patient was initially dilated to 7 cm. Patient had progressed to completion as expected. Delivery: Once patient was completely dilated patient was placed into the normal lithotomy position and started pushing with contractions. Patient delivered infant's head without issues followed by body. Nuchal cord x 1 was noted. was placed onto mother's abdomen. Third delay the cord was clamped and cut. Cord blood was obtained. Placenta was then delivered soon after. Review of the perineum did not demonstrate any significant tears. At the end of the procedure the uterus was firm and bleeding was controlled. Post-Delivery Status: Stable A&P Assessment and plan 1. Spontaneous vaginal delivery: Proceed with routine care PDMP PDMP Reviewed: Not Reviewed Coding Level of Care Code Acute Code for Chg Fwd Diagnoses Spontaneous vaginal delivery O80
[2025-07-07] MEDS: benzocaine-menthol 78 gm Canister 1 SPRAY TOPICAL (12:25)
--- NOTE | 2025-07-07 13:31 | ANE.PACU2 ---
Inpatient post-anesthesia follow up: Airway intact: Yes Vital signs: Temperature 98.0 F Pulse Rate 82 Respiratory Rate 16 Blood Pressure 123/67 Pulse Oximetry 97 Oxygen Delivery Me thod Room Air Oxygen Flow Rate Fraction of Inspir ed Oxygen Hydration adequate: Yes Nausea and vomiting: No Pain level: 1 Mental status: Baseline Epidural Start/End: Epidural Start Date: 07/07/25 Epidural Start Time: 06:39 Epidural End Date: 07/07/25 Epidural End Time: 08:12
[2025-07-07 20:37] LABS: Hematocrit 29.2 % (36-47); Hemoglobin 9.60 g/dL (11.27-16.99); Mean Corpuscular HGB Conc 32.9 g/dL (30-55); Mean Corpuscular Hemoglobin 29.1 pg (27-33); Mean Corpuscular Volume 88.5 fl (85-98); Platelet Count 159 10^3/cmm (157-399); Red Blood Count 3.30 10^6/uL (3.85-5.65); White Blood Count 14.62 10^3/uL (3.29-11.43)
--- NOTE | 2025-07-07 23:23 | PC.NURSE ---
Patient does not have custody of other children. 10 year old son, maternal grandparents have custody. 7yr old daughter, bio dad who lives in [place] has custody and she has visitation every February and March. Mother was not forthcoming on information regarding why she does not have custody of children. When asked she reported she did not know. Called her mother to find out the reasoning and reported she did not want to say the wrong thing.
[2025-07-08] MEDS: HYDROcodone-acetaminophen 5-325 mg Tablet PO (01:53)
[2025-07-08] MEDS: PRENATAL VIT NO.130/IRON/FOLIC 1 EACH TABLET PO (05:04)
[2025-07-08 05:05] VITALS: BP 102/69; PULSE 60; RESP 16; TEMP 36.8; O2SAT 96
--- NOTE | 2025-07-08 08:46 | PM.OBGYDC ---
Discharge Providers CUTTER GRINDER Date of Admission: 07/07/25 05:39 Date of Discharge: 07/25/25 Attending Provider at Admission: Ricardo Najera MD Attending Provider at Discharge: Ricardo Najera MD Primary Care Provider: Ricardo Najera MD Diagnoses at Discharge Discharge Diagnosis 1. Spontaneous vaginal delivery: Reason for Visit Reason for Visit: ctx Hospital Course Hospital Course The patient presented to the hospital in active labor. She had an unremarkable vaginal delivery. Her course has also been unremarkable. Her bleeding is been within normal limits. Her pain will present has been adequately controlled. There have been no concerns. Information Peripartum Data: Delivery Method: Vaginal Physical Exam Narrative: The patient is alert. She appears comfortable. Her heart has a regular rate and rhythm with no murmurs appreciated. Lungs are clear to auscultation bilaterally. Her fundus is firm and below the umbilicus. Discharge Data Studies Completed and Pending Laboratory Results WBC 14.62 10^3/uL (3.29-11.43) H 07/07/25 20: RBC 3.30 10^6/uL (3.85-5.65) L 07/07/25 20: Hgb 9.60 g/dL (11.27-16.99) L 07/07/25 20: Hct 29.2 % (36-47) L 07/07/25 20: MCV 88.5 fl (85-98) 07/07/25 20:26 MCH 29.1 pg (27-33) 07/07/25 20: MCHC 32.9 g/dL (30-55) 07/07/25 20: RDW 13.2 % (12.1-15.1) 07/07/25 20: Plt Count 159 10^3/cmm (157-399) 07/07/25 20: MPV 11.5 fL (7.4-10.4) H 07/07/25 20:26 Neut % (Auto) 81.9 % 07/07/25 05:30 Lymph % (Auto) 10.6 % 07/07/25 05:30 [place] % (Auto) 5.8 % 07/07/25 05:30 Eos % (Auto) 0.8 % 07/07/25 05:30 Baso % (Auto) 0.3 % 07/07/25 05:30 Neut # (Auto) 12.66 10^3/uL (1.8-7.7) H 07/07/25 05:30 Lymph # (Auto) 1.6 10^3/uL (0.8-4.8) 07/07/25 05:30 [place] # (Auto) 0.9 10^3/uL (0.2-0.9) 07/07/25 05:30 Eos # (Auto) 0.1 10^3/uL (0.0-0.8) 07/07/25 05:30 Baso # (Auto) 0.0 10^3/uL (0.0-0.1) 07/07/25 05:30 Nucleated RBC % (auto) 0 % 07/07/25 05:30 Nucleated RBCs # 0.0 /100WBC 07/07/25 05:30 Blood Type O Positive 07/07/25 05:30 Rho(D) Type Rh positive 07/07/25 05:30 Antibody Screen Negative 07/07/25 05:30 Vitals Last Vital Signs Temp 98.3 F 07/08/25 05:05 Pulse 60 07/08/25 05:05 Resp 16 07/08/25 05:05 BP 102/69 07/08/25 05:05 Pulse Ox 96 07/08/25 05:05 O2 Del Method Room Air 07/08/25 05:05 Results Labs OB ([facility]): Obstetrics US 04/11/25 Blood Type O Positive 07/07/25 Antibody Screen Negative 07/07/25 Hct, (36-47) 32.0 % L 07/10/25 Hgb, (11.27-16.99) 10.40 g/dL L 07/10/25 Rho(D) Type Rh positive 07/07/25 Plt Count, (157-399) 234 10^3/cmm 07/10/25 TSH, (0.27-4.20) 6.81 uIU/mL H 08/11/24 C.trachomatis RNA (TMA), (NOT DETECTED) Not detected 06/21/24 N.gonorrhoeae RNA (TMA), (NOT DETECTED) Not detected 06/21/24 T. vaginalis Amp RNA, (NOT DETECTED) Not detected 06/21/24 Chlamydia/GC Comment See note 06/21/24 HCG, Qual, (Negative) Negative 08/11/24 Urine Opiates Screen, (Negative) Negative ng/mL 08/11/24 Ur Barbiturates Screen, (Negative) Negative ng/mL 08/11/24 Ur Phencyclidine Scrn, (Negative) Negative ng/mL 08/11/24 Ur Amphetamines Screen, (Negative) Negative ng/mL 08/11/24 U Benzodiazepines Scrn, (Negative) Negative ng/mL 08/11/24 Urine Cocaine Screen, (Negative) Negative ng/mL 08/11/24 U Marijuana (THC) Screen, (Negative) Positive ng/mL H 08/11/24 Micro Urine Specimen 06/30/25 Discharge Plan Discharge Patient Disposition: Home Condition: Stable Prescriptions: New ibuprofen 800 mg Tablet 800 mg PO TID Qty: 45 0RF Continued 1 tab PO DAILY No Action ondansetron 8 mg tablet,disintegrating 8 mg PO Q6H Qty: 14 0RF Rx Instructions: Take 1/2-1 tab every 6 hours as needed for nausea and vomiting diclofenac sodium 50 mg tablet,delayed release (DR/EC) 50 mg PO BID PRN (Reason: pain) Qty: 14 0RF Discharge Order = DC NOW: Discharge Order (Routine); Ordered 07/08/25 Ordered By: Eric Inman Referrals: Ricardo Najera MD [Primary Care Provider, [facility]] - 6 Weeks Referral Note: * Please call [facility] first thing Thursday morning to make your [address] Najera. Discharge Diet: Usual diet Discharge Activity: Limit activity as instructed Patient Instructions: Depression (DC), Bleeding (DC), Preeclampsia and Eclampsia After Delivery (GEN), Vaginal Delivery (DC), Hemorrhage (DC), OB Discharge Report, OB Food/Drug Interaction Guide, Opioid Safety, OB Home Care, OB Proud Parent Packet, Patient Portal & Karyna Instructions Discharge Attestations CUTTER GRINDER Time Spent in Discharge Care*: less than 30 min Coding Level of Care Code Acute Code for Chg Fwd Diagnoses Spontaneous vaginal delivery O80
[2025-07-08 10:00] VITALS: BP 119/84; PULSE 82; RESP 16; TEMP 36.5; O2SAT 96
[2025-07-08 16:35] VITALS: BP 123/67; PULSE 82; RESP 16; TEMP 36.7; O2SAT 97
== END 2025-07-08 16:55 | disposition home or self-care (01) | DRG 807 ==
LOC: OPOB 05:40 → OBGYN 05:40
PROVIDERS: Admitting Provider Family Medicine; PCP Family Medicine; Visit Provider Family Medicine
DX: O69.81X0 Labor and delivery complicated by cord around neck, without compression, not applicable or unspecified (principal); Z37.0 Single live birth; Z3A.38 38 weeks gestation of pregnancy; O99.344 Other mental disorders complicating childbirth; O99.334 Smoking (tobacco) complicating childbirth; F17.210 Nicotine dependence, cigarettes, uncomplicated; F17.290 Nicotine dependence, other tobacco product, uncomplicated; F32.A Depression, unspecified
CPT/HCPCS: 36415; 59025; 59409; 85025; 85027; 86850; 86900; 99211; J2795; J7030; J7121; J9999

== ENCOUNTER 2025-07-10 11:51 | Emergency (ER) | payer MEDICARE, MEDICAID, SELFPAY ==
--- OUTSIDE RECORDS SUMMARY | 2025-07-10 11:58 | XMS_ITS | Encounter Summary ---
Author Organization [facility] Address [address] [place] [address] Care Team Providers Care Cone Machine Operator Name Role Phone Linda Cardona MD Primary Care Provider [phone] Encounter Details Date Type Department Care Team (Late st Contact Info) Description 07/05/2025 External Device Data [place] ABSTRACTION Provider, Abstract NO ADDRESS ON FILE Social History Tobacco Use Types Packs/Day Years Used Date Smoking Tobacco: Never Smokeless Tobacco: Never Alcohol Use Standard Drinks/Week Comments No 0 (1 standard drink = 0.6 oz pur e alcohol) Feeling Safe Answer Date Recorded Are you in a relationship wi th someone who hurts you emotionally and/or physically? No 05/09/2025 Food Insecurity Answer Date Recorded Patient needs follow up regardin 05/09/2025 Transportation Needs Answer Date Record ed Patient needs follow up regardin 05/09/2025 Utility Needs Answer Date Recorded Patient needs follow up regardin 05/09/2025 Estimated Date of Delivery Comme nts Yes 07/20/2025 Based on Other B asis, Unknown basis Sex and Gender Information Value Date Recorded Sex Assigned at Not on file Legal Sex Female 3:23 AM [employer] Gender Identity Not on file Sexual Orientation Not on file documented as of this encounter Plan of Treatment Not on file documented as of this encounter Visit Diagnoses Not on filedocumented in this encounter Care Teams Cone Machine Operator Relationship Specialty Start Date End Date Linda Cardona MD [address] [place] [id number] PCP - General 11/30/20 documented as of this encounter
--- OUTSIDE RECORDS SUMMARY | 2025-07-10 11:58 | XMS_ITS | Data Portability ---
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 [phone] 5 06/07/2025 11:37:54 06/07/2025 13:05:48 Normal in multigravida [id number] 88538 Z34.80 [id number] - Anticipato ry guidance provided with reassuranc e on symptoms. - Recommende d rest and light activity. - Advised on sleep aids, such as Benadryl and warm baths. - Monitoring growth through ultrasound results. Gestation period, 33 weeks 95152046 Z3A.33 [id number] Dysuria 00842772 R30.0 62580 - Obtain urine analysis and culture to explore infection. - Consider additional testing for STDs based on culture outcomes. - Follow-up planned in two weeks, potentiall y more frequent as term approaches . Pain in fe male genitalia 693264682 N94.9 [id number] -discussed interventi ons to help alleviate symptoms [id number] Hayes Najera MD [facility] ([facility]) [address] [place] [phone] 5 06/15/2025 14:22:51 06/15/2025 15:08:47 Premature labor 5826978 O60.03 - Continue medication to control contractio ns. - Administer a second steroid injection for developmen t. - Maintain pelvic rest and avoid intercours e. - Increase fluid intake and ensure adequate rest. - Return for evaluation if contractio ns or bleeding increase. [id number] Hayes Najera MD [facility] ([facility]) [address] [place] [address] [phone] 5 06/21/2025 11:58:21 06/21/2025 13:06:42 Normal in multigravida [id number] 29444 Z34.80 [id number] - Anticipato ry guidance provided with reassuranc e on symptoms. - Recommende d rest and light activity. - Advised on sleep aids, such as Benadryl and warm baths. - Monitoring growth through ultrasound results. - Discussed handling of constipati on with increased fluids and fiber intake, monitoring contractio ns and signs of labor. [id number] Z33.1 [id number] Hayes Najera MD [facility] ([facility]) [address] [place] [address] [place] [phone] 06/27/2025 12:03:20 06/27/2025 12:35:22 Premature uterine contraction 908867333 O47.03 [id number] stop nifedipine at 37 wga Multigravida 911827108 Z 34.83 02901495 - Ultrasound performed; no concerns noted. - Due date confirmed as 07/20/2025 . - Discussed anticipato ry guidance for medication cessation at 37 weeks. - Patient interested in Q testing; further discussion provided. - Plan for tubal ligation post-deliv judith; consent form to be signed today. [id number] Hayes Najera MD [facility] ([facility]) [address] [place] [address] 07/04/2025 12:15:20 07/04/2025 12:51:35 Urinary tract infectious disease 16924961 N39.0 - Continue antibiotic therapy with Macrobid. - Observe for resolution of symptoms post-cours e. Normal pre gnancy in multigravida [id number] 30331 Z34.80 [id number] - Anticipato ry guidance provided with reassuranc e on symptoms.- - Monitor labor signs.- Educate the patient on signs that necessitat e immediate evaluation . Gestation period, 37 weeks 88442101 Z3A.37 [id number] Health Concerns Section Related Observation LastModified by Organization Detai ls LastModified Time None Recorded Concern Status LastModified by Organization Details LastModified Time None Recorded Advance Directives Directive None Recorded Payers Insurance Date Sequence Insurance Name Policy Number Policy [place] Covered Member ID [place] Member ID Guarantor Name 07/08/2025 1 [employer] (MEDICARE REPLACEMENT/A DVANTAGE - PPO) Radha Lea [id number] Radha Lea 07/08/2025 [place] [facility]) Radha Lea [id number] Radha Lea 07/08/2025 2 [place] Radha Lea [id number] Radha Lea 02/17/2025 [place] Radha Lea [id number] Radha Lea 01/17/2025 1 [place] Radha Lea [id number] Radha Lea Notes Date Note Type Note Provider Name and Address Organization Details Recorded Time 5 text/html jr ob routineReported by PatientHPIFor associated symptoms, patient reportsabdominal pain,cramping,contraction s,vaginal discharge,nausea,constipa tion,edema,headache,dizzi ness,decreased urine volume, andbreathlessnessbut reportsnormal movement,no bleeding,no rom,no vaginal/vulvar itching or irritation,no dysuria,no frequency,no urgency,no hematuria,no fever,no emesis,no diarrhea/loose stool,no visual changes, andno hyperreflexia.ROS as noted in the HPI The patient is a 30-year-old female presenting with a routine obstetric visit. Since the last visit, she reports increased vaginal pain, pressure, contractions, and tightness. She experiences lightheadedness and shortness of breath. Additionally, she reports dysuria, describing bladder pain when voiding, and tried stool softeners for constipation relief. She noted white discharge, frequent movements, and mentioned her fundal height measured 30 cm this morning. - Ultrasound conducted earlier today; results pending. Hayes Najera MD [address] [place] [address], [phone], [facility] 06/07/2025 12:58:54 5 text/html ob routineReported by PatientHPIFor associated symptoms, patient reportsabdominal pain,cramping,contraction s,bleeding,vaginal discharge,frequency,urgen cy,nausea,headache,dizzin ess, andbreathlessnessbut reportsnormal movement,no rom,no vaginal/vulvar itching or irritation,no dysuria,no hematuria,no fever,no emesis,no constipation,no diarrhea/loose stool,no edema,no visual changes,no decrease in urine volume, andno hyperreflexia.ROS as noted in the HPI The patient is a 30-year-old female presenting with a follow-up for labor symptoms. The patient reports brown discharge and light bleeding. She has been experiencing contractions; however, these have been reduced through the use of prescribed medication. She was checked for contractions yesterday, which she believes may have contributed to the bleeding. Hayes Najera MD [address] [place] [address], [phone], [facility] 06/15/2025 16:57:14 5 text/html ob routineReported by PatientHPIFor associated symptoms, patient reportsvaginal discharge,frequency,urgen cy,constipation,headache, anddizzinessbut reportsno abdominal pain,no contractions,normal movement,no bleeding,no rom,no vaginal/vulvar itching or irritation,no dysuria,no hematuria,no fever,no nausea,no emesis,no diarrhea/loose stool,no edema,no visual changes,no decrease in urine volume,no breathlessness, andno hyperreflexia. The patient is a 30-year-old female presenting with a 35-week check for normal in multigravida. She reports increased constipation, not relieved by current treatment. She also described a false alarm where she suspected her water broke, but it was concluded to be bladder incontinence. She experiences intermittent contractions, with stronger instances recently. Hayes Najera MD [address] [place], [phone], [facility] 06/21/2025 14:57:22 5 text/html ob routineReported by PatientHPIFor associated symptoms, patient reportsabdominal pain,cramping,contraction s,vaginal discharge,frequency,urgen cy,constipation,diarrhea/ loose stool,edema,headache, andbreathlessnessbut reportsnormal movement,no bleeding,no rom,no vaginal/vulvar itching or irritation,no dysuria,no hematuria,no fever,no nausea,no emesis,no visual changes,no dizziness,no decrease in urine volume, andno hyperreflexia. The patient is a 30-year-old female presenting for a routine obstetric visit to assess multigravida. She reports taste changes for approximately two weeks and increased movement. There are no new medications, though one medication change should be stopped at 37 weeks. Transportation logistics post-delivery are a concern, and the patient plans to initiate a tubal ligation post-delivery, for which consent has yet to be signed. - Tests and Diagnostics: Routine obstetric ultrasound, no concerns indicated. Hayes Najera MD [address] [place] [address], [phone], [facility] 06/27/2025 14:20:17 text/html jr ob routineReported by PatientHPIFor associated symptoms, patient reportscontractions,abnor mal movement,frequency,nausea ,edema,headache,dizziness , andbreathlessnessbut reportsno abdominal pain,no cramping,no bleeding,no rom,no vaginal discharge,no vaginal/vulvar itching or irritation,no dysuria,no hematuria,no fever,no emesis,no constipation,no diarrhea/loose stool,no visual changes,no decrease in urine volume, andno hyperreflexia. The patient is a 30-year-old female presenting with a follow-up for urinary tract infection and evaluation of uterine contraction progress. She was diagnosed with a urinary tract infection in the emergency room on 07/02 and began taking Macrobid BID for five days. During her hospitalization, she experienced some brown discharge, which she was informed could occur due to cervical checks, and noted being about 1 cm dilated at that time. She has since progressed to nearly 2 cm dilated, with no further bleeding noted Hayes Najera MD [address] [place] [address], [phone], [facility] 07/04/2025 12:52:12 OBGyn Episode Ob Episode Information Episode Created Date Number of Fetuses Patient Bloodtype Patient rh Status Prepregnancy Weight lbs Domestic Partner Domestic Partner Phone Father Name Exchange Underwriting Consultant Status 11/29/19 25 1 O Positive OPEN Fetus Data First Name Last Name Admitted to NICU Weight (g) Sex Living Outcome Pediatric Complications Fetus ID Race Codes Race Delivery Type [id number] Problems Problem Notes Problem Name Start Date End Date Resolution Snomed Code Not e Gestation period, 27 weeks 04/30/2025 46 [id number] Gestation period, 28 weeks 04/27/2025 90 [id number] Gestation period, 25 weeks 04/14/2025 72 [id number] Carlos Calculation Initial Carlos Date Initial Exam Date Initial Exam Provider Initial Ultrasound Date Last Menstrual Period Date Ultra Sound Weeks Gestation 07/20/2025 11/28/2024 12/13/2024 10/07/2024 8 Eighteen To Twenty Week Carlos Update Ultra Sound Date Fundal Height At Umbil Quickening Date Ultra Sound Latest Weeks Gestation Final Carlos Confirmed By Final Carlos Confirmed Date Final Carlos Date Ultra Sound Latest Days Gestation 0 0 Pre- Flowsheet Flowsheet Date 11/29/2024 Georges Score Blood Edema Fundus Height Fundus Units Glucose Ketones Leukocytes Nitrite Labor Signs Protein Cervic Dilation Cervic Effacement Cervic Station Type Weight in lbs Pre/Post Dialysis Refused With clothes 152.631579195949 BP Diastolic BP Location Tested BP Systolic BP Type 80 L arm 124 sitting Fetus Heart Rate Present Fetus Movement Comments Flowsheet Date 12/13/2024 Georges Score Blood Edema Fundus Height Fundus Units Glucose Ketones Leukocytes Nitrite Labor Signs Protein Cervic Dilation Cervic Effacement Cervic Station Type Weight in lbs Pre/Post Dialysis Refused BP Diastolic BP Location Tested BP Systolic BP Type Fetus Heart Rate Present Fetus Movement Comments Flowsheet Date 12/28/2024 Georges Score Blood Edema Fundus Height Fundus Units Glucose Ketones Leukocytes Nitrite Labor Signs Protein Cervic Dilation Cervic Effacement Cervic Station none none none Negative neg Type Weight in lbs Pre/Post Dialysis Refused BP Diastolic BP Location Tested BP Systolic BP Type Fetus Heart Rate Present Fetus Movement A No Comments pelvis aches when walking Flowsheet Date 01/17/2025 Georges Score Blood Edema Fundus Height Fundus Units Glucose Ketones Leukocytes Nitrite Labor Signs Protein Cervic Dilation Cervic Effacement Cervic Station Type Weight in lbs Pre/Post Dialysis Refused With clothes 153.460221941630 BP Diastolic BP Location Tested BP Systolic BP Type 82 L arm 120 sitting Fetus Heart Rate Present Fetus Movement Comments Flowsheet Date 01/24/2025 Georges Score Blood Edema Fundus Height Fundus Units Glucose Ketones Leukocytes Nitrite Labor Signs Protein Cervic Dilation Cervic Effacement Cervic Station none none Negative trace Type Weight in lbs Pre/Post Dialysis Refused With clothes 153.565805340566 BP Diastolic BP Location Tested BP Systolic BP Type 76 L arm 120 sitting Fetus Heart Rate Present A 150 Fetus Movement A No Comments Flowsheet Date 02/21/2025 Georges Score Blood Edema Fundus Height Fundus Units Glucose Ketones Leukocytes Nitrite Labor Signs Protein Cervic Dilation Cervic Effacement Cervic Station none none Negative trace Type Weight in lbs Pre/Post Dialysis Refused With clothes 157.030664145962 BP Diastolic BP Location Tested BP Systolic BP Type 80 L arm 124 sitting Fetus Heart Rate Present A 150 Fetus Movement A Yes Comments cramping, decreased mo vement, PLATA, constipation. testing urine for uti and std Flowsheet Date 03/08/2025 Georges Score Blood Edema Fundus Height Fundus Units Glucose Ketones Leukocytes Nitrite Labor Signs Protein Cervic Dilation Cervic Effacement Cervic Station Type Weight in lbs Pre/Post Dialysis Refused BP Diastolic BP Location Tested BP Systolic BP Type Fetus Heart Rate Present Fetus Movement Comments Flowsheet Date 03/23/2025 Georges Score Blood Edema Fundus Height Fundus Units Glucose Ketones Leukocytes Nitrite Labor Signs Protein Cervic Dilation Cervic Effacement Cervic Station none 23 cm none none Negative 1+ Type Weight in lbs Pre/Post Dialysis Refused Stated 162.175069142146 BP Diastolic BP Location Tested BP Systolic BP Type 70 L arm 110 sitting Fetus Heart Rate Present A 155 Fetus Movement A Yes Comments some discharge and itching, occasional constipation, left side pain Flowsheet Date 04/11/2025 Georges Score Blood Edema Fundus Height Fundus Units Glucose Ketones Leukocytes Nitrite Labor Signs Protein Cervic Dilation Cervic Effacement Cervic Station 25 cm none trace Negative 1+ Type Weight in lbs Pre/Post Dialysis Refused Weight 164.614586735598 BP Diastolic BP Location Tested BP Systolic BP Type 82 126 Fetus Heart Rate Present A 160 Fetus Movement A Yes Comments Flowsheet Date 04/24/2025 Georges Score Blood Edema Fundus Height Fundus Units Glucose Ketones Leukocytes Nitrite Labor Signs Protein Cervic Dilation Cervic Effacement Cervic Station 27 cm none none Negative trace Type Weight in lbs Pre/Post Dialysis Refused Weight 163.292630610388 BP Diastolic BP Location Tested BP Systolic BP Type 86 110 Fetus Heart Rate Present A 145 Fetus Movement A Yes Comments Flowsheet Date 04/27/2025 Georges Score Blood Edema Fundus Height Fundus Units Glucose Ketones Leukocytes Nitrite Labor Signs Protein Cervic Dilation Cervic Effacement Cervic Station Type Weight in lbs Pre/Post Dialysis Refused BP Diastolic BP Location Tested BP Systolic BP Type Fetus Heart Rate Present Fetus Movement Comments Flowsheet Date 04/27/2025 Georges Score Blood Edema Fundus Height Fundus Units Glucose Ketones Leukocytes Nitrite Labor Signs Protein Cervic Dilation Cervic Effacement Cervic Station 28 cm Type Weight in lbs Pre/Post Dialysis Refused With clothes 165.251864967935 BP Diastolic BP Location Tested BP Systolic BP Type 58 L arm 105 sitting Fetus Heart Rate Present A 145 Fetus Movement A Yes Comments Flowsheet Date 05/23/2025 Georges Score Blood Edema Fundus Height Fundus Units Glucose Ketones Leukocytes Nitrite Labor Signs Protein Cervic Dilation Cervic Effacement Cervic Station 29 cm Type Weight in lbs Pre/Post Dialysis Refused Weight 166.068729883606 BP Diastolic BP Location Tested BP Systolic BP Type 70 R arm 120 sitting Fetus Heart Rate Present A 150 Fetus Movement Comments Flowsheet Date 06/07/2025 Georges Score Blood Edema Fundus Height Fundus Units Glucose Ketones Leukocytes Nitrite Labor Signs Protein Cervic Dilation Cervic Effacement Cervic Station Type Weight in lbs Pre/Post Dialysis Refused BP Diastolic BP Location Tested BP Systolic BP Type Fetus Heart Rate Present Fetus Movement Comments Flowsheet Date 06/07/2025 Georges Score Blood Edema Fundus Height Fundus Units Glucose Ketones Leukocytes Nitrite Labor Signs Protein Cervic Dilation Cervic Effacement Cervic Station 30 cm none trace Negative trace Type Weight in lbs Pre/Post Dialysis Refused Weight 168.943998416134 BP Diastolic BP Location Tested BP Systolic BP Type 86 122 Fetus Heart Rate Present A 150 Fetus Movement A Yes Comments Flowsheet Date 06/15/2025 Georges Score Blood Edema Fundus Height Fundus Units Glucose Ketones Leukocytes Nitrite Labor Signs Protein Cervic Dilation Cervic Effacement Cervic Station 32 cm none none Negative 1+ Type Weight in lbs Pre/Post Dialysis Refused Weight 168.196068132795 BP Diastolic BP Location Tested BP Systolic BP Type 84 132 Fetus Heart Rate Present A 140 Fetus Movement A Yes Comments Flowsheet Date 06/21/2025 Georges Score Blood Edema Fundus Height Fundus Units Glucose Ketones Leukocytes Nitrite Labor Signs Protein Cervic Dilation Cervic Effacement Cervic Station trace none none Negative trace Type Weight in lbs Pre/Post Dialysis Refused With clothes 162.083637602674 BP Diastolic BP Location Tested BP Systolic BP Type 78 L arm 110 sitting Fetus Heart Rate Present Fetus Movement A Yes Comments frequency, urgency, constipa tion, small amt of discharge Flowsheet Date 06/27/2025 Georges Score Blood Edema Fundus Height Fundus Units Glucose Ketones Leukocytes Nitrite Labor Signs Protein Cervic Dilation Cervic Effacement Cervic Station none trace Negative trace Type Weight in lbs Pre/Post Dialysis Refused Weight 172.286789023574 BP Diastolic BP Location Tested BP Systolic BP Type 78 110 Fetus Heart Rate Present A 160 Fetus Movement A Yes Comments Flowsheet Date 07/04/2025 Georges Score Blood Edema Fundus Height Fundus Units Glucose Ketones Leukocytes Nitrite Labor Signs Protein Cervic Dilation Cervic Effacement Cervic Station none none Negative 1+ 2cm 50% - 3 Type Weight in lbs Pre/Post Dialysis Refused Weight 133.750927108479 BP Diastolic BP Location Tested BP Systolic BP Type Fetus Heart Rate Present A 160 Fetus Movement A Yes Comments Menstrual History Last Menstrual Date Menses Monthly On Bcp Conception Prior Menses Frequency Hcg Plus Date Menarche Onset Age 0110/07/2024 Genetic Screening And Infection History Question Response Note Patient's Age Will Be 35 Yea rs Or Older At Estimated Date of Delivery false Thalassemia (Malaysian, Chinese, Mediterranean, Or Background): MCV < 80 false Neural Tube Defect (Meningom yelocele, Spina Bifida, Or Anencephaly) false Congenital Heart Defect false Down Syndrome false Negro-Sachs (eg, Christianity, Cajun, Sudanese-Slovak) f alse Goldie Disease false Sickle Cell Disease Or Trait () false Hemophilia Or Other Blood Disorders false Muscular Dystrophy false Cystic Fibrosis false Bobby's Chorea false Intellectual Disability/Autism false If Yes, Was Person Tested For Fragile X? false Other Inherited Genetic Or Chromosomal Disorder false Maternal Metabolic Disorder (eg, Type 1 Diabetes , PKU) false Patient Or Baby's Father Had A Child With Defects Not Listed Above false Recurrent Loss, Or A Stillbirth false Medications (including Suppl ements, Vitamins, Herbs, OTC Drugs), Illicit/Recreational Drugs, Alcohol true If Yes, Agent(s) And Strength/Dosage false Any Other Genetic History false Live With Someone With TB Or Exposed To TB false Patient Or Partner Has History Of Genital Herpes false Rash Or Viral Illness Since Last Menstrual Perio d false History Of STD, Gonorrhea, Chlamydia, HPV, Syphi lis true hx of chlamydia Other Infection History false History of HIV false History of Hepatitis false Prior GBS-infected child false Hemoglobinopathy Or Carrier false Other Structural Defect false Recent Travel History Outside of Country false Mental Retardation/Autism false Delivery Information Delivery Date Delivery Type Labor Anesthesia Weeks Gestation Incision Type Labor Labor Length Hrs Delivered By Post Complications Tubal Sterilization Discharge Date Comments Discharge Information Feeding Method Contraceptive Method Maternal HG B and HCT Levels Ob Episode Information Episode Created Date Number of Fetuses Patient Bloodtype Patient rh Status Prepregnancy Weight lbs Domestic Partner Domestic Partner Phone Father Name Exchange Underwriting Consultant Status 11/30/19 1 CLOSED Fetus Data First Name Last Name Admitted to NICU Weight (g) Sex Living Outcome Pediatric Complications Fetus ID Race Codes Race Delivery Type 2919.77 1704 M Full Term 7685 VAGINAL Carlos Calculation Initial Carlos Date Initial Exam Date Initial Exam Provider Initial Ultrasound Date Last Menstrual Period Date Ultra Sound Weeks Gestation 0 Eighteen To Twenty Week Carlos Update Ultra Sound Date Fundal Height At Umbil Quickening Date Ultra Sound Latest Weeks Gestation Final Carlos Confirmed By Final Carlos Confirmed Date Final Carlos Date Ultra Sound Latest Days Gestation 0 0 Menstrual History Last Menstrual Date Menses Monthly On Bcp Conception Prior Menses Frequency Hcg Plus Date Menarche Onset Age Delivery Information Delivery Date Delivery Type Labor Anesthesia Weeks Gestation Incision Type Labor Labor Length Hrs Delivered By Post Complications Tubal Sterilization Discharge Date Comments 5 Regional-Ep idural [address] in [place] Discharge Information Feeding Method Contraceptive Method Maternal HG B and HCT Levels Ob Episode Information Episode Created Date Number of Fetuses Patient Bloodtype Patient rh Status Prepregnancy Weight lbs Domestic Partner Domestic Partner Phone Father Name Exchange Underwriting Consultant Status 11/30/19 1 CLOSED Fetus Data First Name Last Name Admitted to [facility] Weight (g) Sex Living Outcome Pediatric Complications Fetus ID Race Codes Race Delivery Type 2948.34 8 F Full Term 7686 VAGINAL Carlos Calculation Initial Carlos Date Initial Exam Date Initial Exam Provider Initial Ultrasound Date Last Menstrual Period Date Ultra Sound Weeks Gestation 0 Eighteen To Twenty Week Carlos Update Ultra Sound Date Fundal Height At Umbil Quickening Date Ultra Sound Latest Weeks Gestation Final Carlos Confirmed By Final Carlos Confirmed Date Final Carlos Date Ultra Sound Latest Days Gestation 0 0 Menstrual History Last Menstrual Date Menses Monthly On Bcp Conception Prior Menses Frequency Hcg Plus Date Menarche Onset Age Delivery Information Delivery Date Delivery Type Labor Anesthesia Weeks Gestation Incision Type Labor Labor Length Hrs Delivered By Post Complications Tubal Sterilization Discharge Date Comments 8 Regional-Ep idural 39 [place] i lev in [place] Discharge Information Feeding Method Contraceptive Method Maternal HG B and HCT Levels
--- OUTSIDE RECORDS SUMMARY | 2025-07-10 11:58 | XMS_ITS | Encounter Summary ---
Author Organization [facility] Address 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
--- OUTSIDE RECORDS SUMMARY | 2025-07-10 11:58 | XMS_ITS | Clinical Summary ---
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 typicallyassociated with premature placental separation are process identified. One ormore follow up examination(s) may be of benefit in furthercharacterization. Rosanna Steinberg MD US ORDERABLES Final Result * XR CHEST PA OR AP 1 VW (05/09/2025 2:08 PM CDT) Anatomical Region Laterality Modality Chest Computed Radiogr aphy 05/09/2025 2:08 PM CDT Impressions 05/09/2025 2:41 PM CDT Impression: No evidence of infiltrates. Narrative 05/09/2025 2:41 PM CDT Exam: XR CHEST PA OR AP 1 VW Date/Time of Exam: 05/09/2025 2:08 PM Reason For Exam: Other - Please see comments, Comment: Trauma Diagnosis: See Reason for Exam The heart size is normal. The lungs are clear. No pneumothorax is seen. Procedure Note Hugo Cunningham MD - 05/09/2025 Exam: XR CHEST PA OR AP 1 VW Date/Time of Exam: 05/09/2025 2:08 PM Reason For Exam: Other - Please see comments, Comment: Trauma Diagnosis: See Reason for Exam The heart size is normal. The lungs are clear. No pneumothorax is seen. Impression: No evidence of infiltrates. Zoey Aguilar DO DIAGNOSTIC IMAGING ORDERABLES Fi nal Result * CTA NECK W AND/OR WO CONTRAST (05/09/2025 1:41 PM CDT) Anatomical Region Laterality Modality Neck Computed Tomogra phy 05/09/2025 1:43 PM CDT Impressions 05/09/2025 1:51 PM CDT IMPRESSION: 1. No evidence of acute arterial injury in the neck. 2. No evidence of hemodynamically significant stenosis within the cervical internal carotid arteries based on NASCET criteria. 3. Other findings, as above. Narrative 05/09/2025 1:51 PM CDT EXAM: CTA NECK W AND/OR WO CONTRAST DATE/TIME OF EXAM: 05/09/2025 1:41 PM REASON FOR STUDY: trauma DIAGNOSIS: See Reason for Exam COMPARISON: Same day CT CONTRAST: IOPAMIDOL 61 % INTRAVENOUS SOLUTION (MULTI-DOSE BULK PACK) Given:100 mL TECHNIQUE: CTA of the neck was performed following the administration of intravenous contrast. Post-processing was performed, including sagittal and coronal reformations and 3-D MIP reconstruction. FINDINGS: AORTIC ARCH ATHEROSCLEROSIS GRADE: none AORTIC ARCH: three vessel SUBCLAVIAN ARTERIES: No significant stenosis or occlusion. CERVICAL VERTEBRAL ARTERIES: Patent extracranial segments. No dissection. RIGHT CCA AND CERVICAL ICA: No significant stenosis or significant plaque. No dissection. LEFT CCA AND CERVICAL ICA: No significant stenosis or significant plaque. No dissection. Refer to separately performed and separately dictated same day CTs for findings in the head, cervical spine, chest, abdomen and pelvis. Dental cavity right most posterior maxillary molar tooth. Procedure Note Nia Aguiar MD - 05/09/2025 EXAM: CTA NECK W AND/OR WO CONTRAST DATE/TIME OF EXAM: 05/09/2025 1:41 PM REASON FOR STUDY: trauma DIAGNOSIS: See Reason for Exam COMPARISON: Same day CT CONTRAST: IOPAMIDOL 61 % INTRAVENOUS SOLUTION (MULTI-DOSE BULK PACK) Given:100 mL TECHNIQUE: CTA of the neck was performed following the administration of intravenous contrast. Post-processing was performed, including sagittal and coronal reformations and 3-D MIP reconstruction. FINDINGS: AORTIC ARCH ATHEROSCLEROSIS GRADE: none AORTIC ARCH: three vessel SUBCLAVIAN ARTERIES: No significant stenosis or occlusion. CERVICAL VERTEBRAL ARTERIES: Patent extracranial segments. No dissection. RIGHT CCA AND CERVICAL ICA: No significant stenosis or significant plaque. No dissection. LEFT CCA AND CERVICAL ICA: No significant stenosis or significant plaque. No dissection. Refer to separately performed and separately dictated same day CTs for findings in the head, cervical spine, chest, abdomen and pelvis. Dental cavity right most posterior maxillary molar tooth. IMPRESSION: 1. No evidence of acute arterial injury in the neck. 2. No evidence of hemodynamically significant stenosis within the cervical internal carotid arteries based on NASCET criteria. 3. Other findings, as above. Zoey Aguilar DO CT ORDERABLES Final Result * CT CHEST ABDOMEN PELVIS W CONT (05/09/2025 1:40 PM CDT) Anatomical Region Laterality Modality Chest Computed Tomogra phy 05/09/2025 1:41 PM CDT Impressions 05/09/2025 2:25 PM CDT Impression: No acute abnormalities in the chest. Contiguous axial images were obtained through the abdomen and pelvis. Sagittal and coronal reformatted images are included. The study was performed following a CT of the chest utilizing the same contrast bolus. An intrauterine gestation is present. There is no evidence of any placenta previa or abruption. Amniotic fluid volume appears normal. There is no evidence of any abnormal contrast extravasation from the maternal ureters, renal collecting systems or urinary bladder. There is no evidence of any abdominal aortic aneurysm or dissection. An 8.0 x 4.5 x 5.5 cm hematoma is present in the peroneal region of the pelvis on the right. Active contrast extravasation is seen into the hematoma consistent with active hemorrhage. The liver, spleen, pancreas, kidneys and adrenals are unremarkable. There is no evidence of any abnormal soft tissue mass, adenopathy or abnormal free fluid collections in the abdomen or pelvis. Bowel loops are nondilated. There is no evidence of any free intraperitoneal air. No acute fractures or dislocations are seen. Impression: 1. Soft tissue hematoma in the perineal region on the right with some active hemorrhage present. 2. No acute intra-abdominal abnormalities. Narrative 05/09/2025 2:25 PM CDT Exam: CT CHEST ABDOMEN PELVIS W CONT Date/Time of Exam: 05/09/2025 1:40 PM Reason For Exam: Polytrauma, blunt Diagnosis: See Reason for Exam Contiguous axial images were obtained through the chest. Sagittal and coronal reformatted images are included. 100 mL of Isovue-300 was given intravenously. There is no evidence of any thoracic aortic aneurysm or dissection. No mediastinal hematoma. Lymph nodes in the mediastinum all measure under 1 cm along their short axis. There is no evidence of any abnormal soft tissue masses in the chest. The lungs are clear. There is no evidence of any pleural effusion or other abnormal fluid collections. No pneumothorax is seen. No acute fractures or dislocations are seen. Procedure Note Hugo Cunningham MD - 05/09/2025 Exam: CT CHEST ABDOMEN PELVIS W CONT Date/Time of Exam: 05/09/2025 1:40 PM Reason For Exam: Polytrauma, blunt Diagnosis: See Reason for Exam Contiguous axial images were obtained through the chest. Sagittal and coronal reformatted images are included. 100 mL of Isovue-300 was given intravenously. There is no evidence of any thoracic aortic aneurysm or dissection. No mediastinal hematoma. Lymph nodes in the mediastinum all measure under 1 cm along their short axis. There is no evidence of any abnormal soft tissue masses in the chest. The lungs are clear. There is no evidence of any pleural effusion or other abnormal fluid collections. No pneumothorax is seen. No acute fractures or dislocations are seen. Impression: No acute abnormalities in the chest. Contiguous axial images were obtained through the abdomen and pelvis. Sagittal and coronal reformatted images are included. The study was performed following a CT of the chest utilizing the same contrast bolus. An intrauterine gestation is present. There is no evidence of any placenta previa or abruption. Amniotic fluid volume appears normal. There is no evidence of any abnormal contrast extravasation from the maternal ureters, renal collecting systems or urinary bladder. There is no evidence of any abdominal aortic aneurysm or dissection. An 8.0 x 4.5 x 5.5 cm hematoma is present in the peroneal region of the pelvis on the right. Active contrast extravasation is seen into the hematoma consistent with active hemorrhage. The liver, spleen, pancreas, kidneys and adrenals are unremarkable. There is no evidence of any abnormal soft tissue mass, adenopathy or abnormal free fluid collections in the abdomen or pelvis. Bowel loops are nondilated. There is no evidence of any free intraperitoneal air. No acute fractures or dislocations are seen. Impression: 1. Soft tissue hematoma in the perineal region on the right with some active hemorrhage present. 2. No acute intra-abdominal abnormalities. us Jakub King DO CT ORDERABLES Final Result * LACTIC ACID (05/09/2025 1:15 PM CDT) LACTIC ACID 1.4 <=2.0 mmol/L 05/09/2025 1:52 PM CDT [facility] Blood Venipuncture / Unknown 05/09/2025 1:15 PM CDT 05/09/2025 1:23 PM CDT Zoey Aguilar DO CHEMISTRY ORDERABLES Final Resul t Performing Organization Address [facility] Co de Phone Number [facility] CLIA # [id number] [address] [place] [address] * RH IMMUNE GLOBULIN EVALUATION (05/09/2025 1:15 PM CDT) Pathologist [facility] RHIG ELIGIBILITY No RHIg, pt Rh Pos 05/09/2025 2:10 PM CDT [facility] Blood Venipuncture / Unknown 05/09/2025 1:15 PM CDT 05/09/2025 1:59 PM CDT Jakub King DO BLOOD BANK ORDERABLES Final Res ult Performing Organization Address [facility] de Phone Number [facility] CLIA#[id number] [facility] [place] [address], * MATERNAL BLEED, QUANTITATIVE STAIN (05/09/2025 1:15 PM CDT) Pathologist [facility] WHOLE BLOOD BLEED <3.00 mL 05/09/2025 4:49 PM CDT [facility] Blood BLOOD SPECIMEN / Unknown Venipuncture / Unknown 05/09/2025 1:15 PM CDT 05/09/2025 1:47 PM CDT Narrative [facility] - 05/09/2025 4:49 PM CDT Patient is Rh Positive, Rh Immune Globulin is not indicated. Jakub Christine DO HEMATOLOGY ORDERABLES Final Res ult [facility] CLIA#[id number] [facility] [place] [address], * PTT (05/09/2025 1:15 PM CDT) PTT 28.8 24.8 - 37.2 seconds 05/09/2025 2:13 PM CDT [facility] Blood Venipuncture / Unknown 05/09/2025 1:15 PM CDT 05/09/2025 1:51 PM CDT [facility] - 05/09/2025 2:13 PM CDT Therapeutic Range: Hi-level PE/DVT heparin protocol 80.1 - 95.0 sec Lo-level PE/DVT heparin protocol 70.1 - 85.0 sec Cardiac Heparin Protocol 70.1 - 100.0 sec Zoey Aguilar DO HEMATOLOGY ORDERABLES Final Resu lt [facility] CLIA # [id number] [address] [address] * (ABNORMAL) PROTIME-INR (05/09/2025 1:15 PM CDT) PROTIME 15.1(H) 12.7 - 14.9 Seconds 05/09/2025 2:13 PM CDT [facility] INR 1.1 0.8 - 1.2 05/09/2025 2:13 PM CDT [facility] Blood Venipuncture / Unknown 05/09/2025 1:15 PM CDT 05/09/2025 1:51 PM CDT [facility] - 05/09/2025 2:13 PM CDT Expected Values for INR: DVT/PE Goal INR 2.5; range 2.0 - 3.0 Valve Replacement Tissue Goal INR 2.5; range 2.0 - 3.0 Valve Replacement Mechanical Goal INR 3.0; range 2.5 - 3.5 POST-OR Goal INR 2.5; range 2.0 - 3.0 or Goal INR 3.0; range 2.5 - 3.5 Atrial Fibrillation Goal INR 2.5; range 2.0 - 3.0 Ischemic Stroke Goal INR 2.5; range 2.0 - 3.0 Zoey Aguilar DO HEMATOLOGY ORDERABLES Final Resu lt Performing Organization Address [facility]/ZIP Co de Phone Number [facility] CLIA # [id number] [address] [facility] [place] [address] * TYPE AND SCREEN (05/09/2025 1:15 PM CDT) Pathologist [facility] ABO GROUP O 05/09/2025 2:02 PM CDT [facility] [place] RH (D) TYPE Positive 05/09/2025 2:02 PM CDT [facility] [place] ANTIBODY SCREEN Negative 05/09/2025 2:02 PM CDT [facility] [place] Blood Venipuncture / Unknown 05/09/2025 1:15 PM CDT 05/09/2025 1:23 PM CDT Rosanna Steinberg MD BLOOD BANK ORDERABLES Edited Result - Final [facility] [place] CLIA#[id number] [address] [place], [place] [id number] [place] [address] * HEMOGLOBIN A1C (05/09/2025 1:15 PM CDT) Pathologist [facility] HEMOGLOBIN A1C 4.7 <=5.6 % 05/12/2025 9:40 AM CDT [facility] [place] EST. AVG GLUCOSE, A1C 88 mg/dL 05/12/2025 9:40 AM CDT [facility] Blood Venipuncture / Unknown 05/09/2025 1:15 PM CDT 05/09/2025 1:26 PM CDT Narrative [facility] - 05/12/2025 9:40 AM CDT HGB A1C INTERPRETATION NORMAL: <5.7% PRE-DIABETES: 5.7 - 6.4% DIABETES: 6.5% OR GREATER us Rosanna Steinberg MD CHEMISTRY ORDERABLES Final Re sult Performing Organization Address [facility] Co de Phone Number [facility] CLIA # [id number] [address] [address] * ETHANOL LEVEL (05/09/2025 1:15 PM CDT) ETHANOL <10.10 <10.10 mg/dL 05/09/2025 2:34 PM CDT [facility] ETHANOL % <0.01 <=0.01 %w/v 05/09/2025 2:34 PM CDT [facility] Blood Venipuncture / Unknown 05/09/2025 1:15 PM CDT 05/09/2025 1:26 PM CDT us Zoey Aguilar DO CHEMISTRY ORDERABLES Final Resul t Performing Organization Address [facility]/ZIP Co de Phone Number [facility] CLIA # [id number] [address] [address] * (ABNORMAL) COMPREHENSIVE METABOLIC PANEL (05/09/2025 1:15 PM CDT) SODIUM 135(L) 136 - 145 mmol/L 05/09/2025 2:00 PM CDT [facility] POTASSIUM 3.8 3.5 - 5.1 mmol/L 05/09/2025 2:00 PM [facility] CHLORIDE 104 98 - 107 mmol/L 05/09/2025 2:00 PM [facility] CO2 20(L) 22 - 29 mmol/L 05/09/2025 2:00 PM [facility] CALCIUM 9.2 8.6 - 10.0 mg/dL 05/09/2025 2:00 PM [facility] BUN 11 6 - 20 mg/dL 05/09/2025 2:00 PM [facility] CREATININE 0.76 0.51 - 0.95 mg/dL 05/09/2025 2:00 PM [facility] GLUCOSE 92 74 - 99 mg/dL 05/09/2025 2:00 PM [facility] TOTAL PROTEIN 7.1 6.4 - 8.3 g/dL 05/09/2025 2:00 PM [facility] ALBUMIN 3.7 3.5 - 5.2 g/dL 05/09/2025 2:00 PM [facility] BILIRUBIN TOTAL 0.4 0.0 - 1.0 mg/dL 05/09/2025 2:00 PM [facility] ALKALINE PHOSPHATASE 136(H) 35 - 104 U/L 05/09/2025 2:00 PM [facility] AST 28 10 - 35 U/L 05/09/2025 2:00 PM [facility] ALT 25 <=35 U/L 05/09/2025 2:00 PM [facility] GFR >60 >=60 mL/min/1.7 3 sq meter 05/09/2025 2:00 PM [facility] Comment:eGFR calculated with 2020 CKD-EPI equation. Vegetarian diet, extremely high or low muscle mass, and may affect results. Cystatin C with Glomerular Filtration Rate is a suitable alternative for these patients. ANION GAP 11 9 - 20 mmol/L 05/09/2025 2:00 PM [facility] Blood Venipuncture / Unknown 05/09/2025 1:15 PM CDT 05/09/2025 1:26 PM CDT us Jakub Christine DO CHEMISTRY ORDERABLES Final Resu lt [facility] CLIA # [id number] [address] [facility] [place] [address] * CT HEAD WO CONTRAST (05/09/2025 1:11 PM CDT) Anatomical Region Laterality Modality Head Computed Tomogra phy 05/09/2025 1:12 PM CDT Impressions 05/09/2025 1:24 PM CDT IMPRESSION: No evidence of an acute intracranial process. Narrative 05/09/2025 1:24 PM CDT EXAM: CT HEAD WO CONTRAST DATE/TIME OF EXAM: 05/09/2025 1:11 PM REASON FOR STUDY: trauma DIAGNOSIS: See Reason for Exam COMPARISON: None Available TECHNIQUE: CT head performed without contrast. FINDINGS: No evidence of an acute territorial infarct, parenchymal hemorrhage, hydrocephalus or abnormal extra-axial fluid collection. No midline shift. Basilar cisterns remain patent. No mastoid effusion. Small retention cyst or polyp right sphenoid sinus. No paranasal sinus fluid level. No calvarial fracture. No sizable scalp hematoma. Procedure Note Nia Aguiar MD - 05/09/2025 EXAM: CT HEAD WO CONTRAST DATE/TIME OF EXAM: 05/09/2025 1:11 PM REASON FOR STUDY: trauma DIAGNOSIS: See Reason for Exam COMPARISON: None Available TECHNIQUE: CT head performed without contrast. FINDINGS: No evidence of an acute territorial infarct, parenchymal hemorrhage, hydrocephalus or abnormal extra-axial fluid collection. No midline shift. Basilar cisterns remain patent. No mastoid effusion. Small retention cyst or polyp right sphenoid sinus. No paranasal sinus fluid level. No calvarial fracture. No sizable scalp hematoma. IMPRESSION: No evidence of an acute intracranial process. us Jakub Christine DO CT ORDERABLES Final Result * CT CERVICAL SPINE WO CONTRAST (05/09/2025 1:11 PM CDT) Anatomical Region Laterality Modality Spine Computed Tomogra phy 05/09/2025 1:11 PM CDT Impressions 05/09/2025 1:22 PM CDT IMPRESSION: No acute cervical spine fracture. Narrative 05/09/2025 1:22 PM CDT EXAM: CT CERVICAL SPINE WO CONTRAST DATE/TIME OF EXAM: 05/09/2025 1:11 PM REASON FOR STUDY: trauma DIAGNOSIS: See Reason for Exam COMPARISON: None TECHNIQUE: CT cervical spine without intravenous contrast. Coronal and sagittal reformatted images were provided. FINDINGS: BONES: No acute cervical spine fracture. ALIGNMENT: Within normal limits. SOFT TISSUES: No prevertebral soft tissue swelling. OTHER: Visualized lung apices are clear. Procedure Note Nia Aguiar MD - 05/09/2025 EXAM: CT CERVICAL SPINE WO CONTRAST DATE/TIME OF EXAM: 05/09/2025 1:11 PM REASON FOR STUDY: trauma DIAGNOSIS: See Reason for Exam COMPARISON: None TECHNIQUE: CT cervical spine without intravenous contrast. Coronal and sagittal reformatted images were provided. FINDINGS: BONES: No acute cervical spine fracture. ALIGNMENT: Within normal limits. SOFT TISSUES: No prevertebral soft tissue swelling. OTHER: Visualized lung apices are clear. IMPRESSION: No acute cervical spine fracture. us Jakub Christine DO CT ORDERABLES Final Result from Last 3 Months Insurance [facility] [place] [facility] [place] Care Teams Public Health Dentist Relationship Specialty Start Date End Date Linda Cardona MD [address] [facility] [address] [place] [address] PCP - General 11/30/20
--- OUTSIDE RECORDS SUMMARY | 2025-07-10 11:58 | XMS_ITS | Continuity of Care Document ---
Author Organization JODI - [facility], L.LDianeCDiane, [facility] (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 Referral None recorded . Procedures None recorded . Surgeries None recorded . Imaging None recorded . Medication Orders None recorded . Patient TargetsNo targets recorded. Patient Instructions Encounter Date Encounter Id Patient Instructions Last Modified By Organization Details Last Modified Time 07/04/2025 [id number] - Finish all prescribed antibiotics for the [...] Abnormal Flag Note LastModifiedBy Organization Detail LastModifiedTime 11/30/1912/02/2024 URINA LYSIS , COMPL ETE color YELLOW yellow normal Not Available [address], [address], 12/02/2024 16:55:26 11/30/1912/02/2024 URINA LYSIS , COMPL ETE appearance CLOUDY clear abnormal Not Available [facility] [address], [address], 12/02/2024 16:55:26 11/30/1912/02/2024 URINA LYSIS , COMPL ETE specific gravity 1.030 1.001- 1.035 normal Not Available [address], [address], 12/02/2024 16:55:26 11/30/19 25 12/02/2024 URINA LYSIS , COMPL ETE pH 5.5 5.0-8. 0 normal Not Available [facility] [address], [address], 12/02/2024 16:55:26 11/30/1912/02/2024 URINA LYSIS , COMPL ETE glucose NEGATI VE negati ve normal Not Available [facility] [address], [address], 12/02/2024 16:55:26 11/30/1912/02/2024 URINA LYSIS , COMPL ETE bilirubin NEGATI VE negati ve normal Not Available [facility] [address], [address], 12/02/2024 16:55:26 11/30/19 25 12/02/2024 URINA LYSIS , COMPL ETE ketones NEGATI VE negati ve normal Not Available [address], [address], 12/02/2024 16:55:26 11/30/19 25 12/02/2024 URINA LYSIS , COMPL ETE occult blood NEGATI VE negati ve normal Not Available [address], [address], 12/02/2024 16:55:26 11/30/19 25 12/02/2024 URINA LYSIS , COMPL ETE protein TRACE negati ve abnormal Not Available [address], [address], 12/02/2024 16:55:26 11/30/19 25 12/02/2024 URINA LYSIS , COMPL ETE nitrite NEGATI VE negati ve normal Not Available [address], [address], 12/02/2024 16:55:26 11/30/19 25 12/02/2024 URINA LYSIS , COMPL ETE leukocyte esterase 1+ negati ve abnormal Not Available [address], [address], 12/02/2024 16:55:26 11/30/19 25 12/02/2024 URINA LYSIS , COMPL ETE WBC 10-20 /hpf < or = 5 abnormal Not Available [address], [address], 12/02/2024 16:55:26 11/30/19 25 12/02/2024 URINA LYSIS , COMPL ETE RBC NONE SEEN /hpf < or = 2 normal Not Available [address], [address], 12/02/2024 16:55:26 11/30/19 25 12/02/2024 URINA LYSIS , COMPL ETE squamous epithelial cells 20-40 /hpf < or = 5 abnormal Not Available [address], [address], 12/02/2024 16:55:26 11/30/19 25 12/02/2024 URINA LYSIS , COMPL ETE bacteria MODERA TE /hpf none seen abnormal Not Available [address], [address], 12/02/2024 16:55:26 11/30/19 25 12/02/2024 URINA LYSIS , COMPL ETE hyaline cast 0-5 /lpf none seen abnormal Not Available [address], [address], 12/02/2024 16:55:26 11/30/19 25 12/02/2024 URINA LYSIS , COMPL ETE note This urine was david zed for the prese nce of WBC, RBC, bacte wilma, casts , and other forme d eleme nts. Only those eleme nts seen were repor savi. Not Available [address], [address], 12/02/2024 16:55:26 11/30/19 25 12/02/2024 CBC (INCL UDES DIFF/ PLT) white blood cell count 10.0 thous and/u L 3.8-10 .8 normal Not Available [address], [address], 12/02/2024 16:55:28 11/30/19 25 12/02/2024 CBC (INCL UDES DIFF/ PLT) red blood cell count 4.64 amanda on/uL 3.80-5 .10 normal Not Available [address], [address], 12/02/2024 16:55:28 03/25/12/02/2024 CBC (INCL UDES DIFF/ PLT) hemoglobin 13.6 g/dL 11.7-1 5.5 normal Not Available [address], [address], 12/02/2024 16:55:28 11/30/1912/02/2024 CBC (INCL UDES DIFF/ PLT) hematocrit 42.1 % 35.0-4 5.0 normal Not Available [address], [address], 12/02/2024 16:55:28 11/30/1912/02/2024 CBC (INCL UDES DIFF/ PLT) MCV 90.7 fL 80.0-1 00.0 normal Not Available [address], [address], 12/02/2024 16:55:28 11/30/1912/02/2024 CBC (INCL UDES DIFF/ PLT) MCH 29.3 pg 27.0-3 3.0 normal Not Available [address], [address], 12/02/2024 16:55:28 11/30/1912/02/2024 CBC (INCL UDES DIFF/ PLT) MCHC 32.3 g/dL 32.0-3 6.0 normal For adult s, a sligh t decre ase in the calcu lated MCHC value (in the range of 30 to 32 g/dL) is most likel y not clini lisa signi fátima t; julianneev er, it shoul d be inter prete d with cauti on in corre latio n with other red cell morgan eters and the patie nt's clini toña condi tion. Not Available [facility] [address], [address], 12/02/2024 16:55:28 11/30/1912/02/2024 CBC (INCL UDES DIFF/ PLT) RDW 12.0 % 11.0-1 5.0 normal Not Available [address], [address], 12/02/2024 16:55:28 11/30/19 25 12/02/2024 CBC (INCL UDES DIFF/ PLT) platelet count 344 thous and/u L 140-40 0 normal Not Available [address], [address], 12/02/2024 16:55:28 11/30/19 25 12/02/2024 CBC (INCL UDES DIFF/ PLT) MPV 11.8 fL 7.5-12 .5 normal Not Available [address], [address], 12/02/2024 16:55:28 11/30/19 25 12/02/2024 CBC (INCL UDES DIFF/ PLT) absolute neutrophils 7220 cells /uL 1500-7 800 normal Not Available [address], [address], 12/02/2024 16:55:28 11/30/19 25 12/02/2024 CBC (INCL UDES DIFF/ PLT) absolute lymphocytes 1940 cells /uL 850-39 00 normal Not Available [address], [address], 12/02/2024 16:55:28 11/30/19 25 12/02/2024 CBC (INCL UDES DIFF/ PLT) absolute monocytes 720 cells /uL 200-95 0 normal Not Available [facility] [address], [address], 12/02/2024 16:55:28 11/30/19 25 12/02/2024 CBC (INCL UDES DIFF/ PLT) absolute eosinophils 60 cells /uL 15-500 normal Not Available [address], [address], 12/02/2024 16:55:28 11/30/19 12/02/2024 CBC (INCL UDES DIFF/ PLT) absolute basophils 60 cells /uL 0-200 normal Not Available [address], [address], 12/02/2024 16:55:28 11/30/19 25 12/02/2024 CBC (INCL UDES DIFF/ PLT) neutrophils 72.2 % normal Not Available [address], [address], 12/02/2024 16:55:28 11/30/19 25 12/02/2024 CBC (INCL UDES DIFF/ PLT) lymphocytes 19.4 % normal Not Available [address], [address], 12/02/2024 16:55:28 11/30/19 25 12/02/2024 CBC (INCL UDES DIFF/ PLT) monocytes 7.2 % normal Not Available [address], [address], 12/02/2024 16:55:28 11/30/19 25 12/02/2024 CBC (INCL UDES DIFF/ PLT) eosinophils 0.6 % normal Not Available [address], [address], 12/02/2024 16:55:28 11/30/19 25 12/02/2024 CBC (INCL UDES DIFF/ PLT) basophils 0.6 % normal Not Available [address], [address], 12/02/2024 16:55:28 11/30/1912/02/2024 HEPAT ITIS B SURFA CE ANTIG EN W/REF L CONFI RM hepatitis B surface antigen NON-RE ACTIVE non-re active normal For addit ional infor brendon perry e refer to http: //anny pino.pritesh stdia gnost ics.c om/fa q/FAQ 202 (This link is being provi ded for infor matio nal/ educa hannah l purpo ses only. ) Not Available [facility] [address], [address], 12/02/2024 16:55:29 11/30/19 25 12/02/2024 HEPAT ITIS C AB W/REF L TO HCV RNA, QN, PCR hepatitis C antibody NON-RE ACTIVE non-re active normal HCV antib pan was non-r eacti ve. There is no labor atory evide nce of HCV infec tion. In most cases , no furth er actio n is requi red. Howev er, if recen t HCV expos ure is suspe cted, a test for HCV RNA (test code 11729 ) is sugge sted. For addit ional infor edd pino pleas e refer to http: //[facility] pino.[facility] stdia gnost ics.c om/fa q/FAQ 22v1 (This link is being provi ded for infor matio nal/ educa hannah l purpo ses only. ) Not Available [facility] [address] [place], [address], 12/02/2024 16:55:30 11/30/19 25 12/02/2024 RUBEL LA AB (IGG) , IMMUN E STATU S rubella Ab (IgG), immune status 2.21 index normal Index Inter preta tion ----- ----- ----- ---- <0.90 Not consi stent with immun ity 0.90- 0.99 Equiv ocal > or = 1.00 Consi stent with immun ity The prese nce of rubel la IgG antib pan sugge sts immun izati on or past or curre nt infec tion with rubel la virus . Not Available [facility] [address] [place], [address], 12/02/2024 16:55:31 11/30/19 25 12/02/2024 HIV 1/2 ANTIG EN/AN TIBOD Y,FOU RTH GENER ATION W/RFL HIV Ag/Ab, 4TH gen NON-RE ACTIVE non-re active normal HIV-1 antig en and HIV-1 /HIV- 2 antib odies were not detec savi. There is no labor atory evide nce of HIV infec tion. PLEJAYJAY E NOTE: This infor matio n has been discl osed to you from recor ds whose confi denti ality may be prote cted by state law. If your state requi res such prote ction , then the state law prohi bits you from sonia cruz furth er discl osure of the infor matio n witho ut the speci fic writt en conse nt of the perso n to whom it perta ins, or as other christianson permi tted by law. A gener al autho rizat ion for the relea se of medic al or other infor matio n is NOT suffi cient for this purpo se. For addit ional infor matio n brendon e refer to http: //[facility] anne marie knight stdia gnost ics.c om/fa q/FAQ 106 (This link is being provi ded for infor matio nal/ educa hannah l purpo ses only. ) The perfo rmanc e of this assay has not been clini lisa valid ated in patie nts less than 2 years old. Not Available [address] [address] [place], [address], 12/02/2024 16:55:32 11/30/1912/02/2024 CHLAM YDIA/ N. GONOR RHOEA E RNA, TMA, UROGE NITAL chlamydia trachomatis RNA, tma, urogenital NOT DETECT ED not detect ed normal Not Available [facility] [address] [place], [address], 12/02/2024 16:55:33 11/30/1912/02/2024 CHLAM YDIA/ N. GONOR RHOEA E RNA, TMA, UROGE NITAL neisseria gonorrhoeae RNA, tma, urogenital NOT DETECT ED not detect ed normal Not Available [facility] [address] [place], [address], 12/02/2024 16:55:33 11/30/1912/02/2024 LOU WHITAKER/ N. GONOR RHOEA E RNA, TMA, UROGE NITAL comment The david tical perfo rmanc e valente cteri stics of this assay , when used to test SureP ath(T M) speci mens have been deter mined by [facility] s. The modif icati ons have not been clear ed or appro rocio by the FDA. This assay has been valid ated pursu ant to the CLIA regul ation s and is used for clini toña purpo ses. For addit ional infor brendon perry e refer to https ://ed ucati on.qu estSuper Ele&[employer]. [employer]/f aq/FA Q154 (This link is being provi ded for infor edd pino/ educa hannah l purpo ses only. ) Not Available [email or web address] [address] [address] [place], [address], 12/02/2024 16:55:33 11/30/1912/02/2024 RPR (DX) W/REF L TITER AND T. PALLI DUM AB, IA RPR (DX) w/refl titer and confirmatory testing NON-RE ACTIVE non-re active normal No labor atory evide nce of syphi lis. If recen t expos ure is suspe cted, submi t a new sampl e in 2-4 weeks . Not Available [email or web address] [address] [address] [place], [address], 12/02/2024 16:55:35 11/30/1912/02/2024 ANTIB PAN SCREE N, RBC W/REF L ID, TITER AND AG antibody screen, RBC w/refl id, titer and Ag NO ANTIBO DIES DETECT ED normal Refer ence range No antib odies detec savi This assay is a scree carin test for the detec tion of red blood cell antib odies . The test is not to be used for pretr ansfu leida scree carin or for the medic al manag ement of an alloi mmuni zed pregn arie. Not Available [address] [address] [place], [address], 12/02/2024 16:55:36 11/30/1912/02/2024 ABO GROUP AND RH TYPE ABO group O Not Available [address] [address] [place], [address], 12/02/2024 16:55:37 11/30/1912/02/2024 ABO GROUP AND RH TYPE Rh type RH(D) POSITI VE For addit ional infor brendon perry refer to http: //[facility] anne marie Palacio gnjoslyn ics.c om/fa q/FAQ 111 (This link is being provi ded for infor edd cain/ educdaksha gagnon purpo ses only. ) Not Available [facility] [address] [address] [address], [place], [address], 12/02/2024 16:55:37 11/30/1912/02/2024 DRUG MONIT OR, PANEL 1, SCREE N, URINE amphetamines NEGATI VE NG/mL <500 See Note A See Note A Not Available [facility] [address] [address], [place], [address], 12/02/2024 16:55:38 11/30/19 25 12/02/2024 DRUG MONIT OR, PANEL 1, SCREE N, URINE barbiturates NEGATI VE NG/mL <300 See Note A See Note A Not Available [facility] [address] [address] [place], [address], 12/02/2024 16:55:38 11/30/19 25 12/02/2024 DRUG MONIT OR, PANEL 1, SCREE N, URINE benzodiazepi brannon NEGATI VE NG/mL <100 See Note A See Note A Not Available [facility] [address] [address] [place], [address], 12/02/2024 16:55:38 11/30/19 25 12/02/2024 DRUG MONIT OR, PANEL 1, SCREE N, URINE cocaine metabolite NEGATI VE NG/mL <150 See Note A See Note A Not Available [facility] [address] [address], [place], [address], 12/02/2024 16:55:38 11/30/19 25 12/02/2024 DRUG MONIT OR, PANEL 1, SCREE N, URINE marijuana metabolite POSITI VE NG/mL <20 abnormal See Note A See Note A Not Available [facility] [address] [address] [address], [place], [address], 12/02/2024 16:55:38 11/30/19 25 12/02/2024 DRUG MONIT OR, PANEL 1, SCREE N, URINE methadone metabolite NEGATI VE NG/mL <100 See Note A See Note A Not Available [facility] [address] [address] [address], [place], [address], 12/02/2024 16:55:38 11/30/19 25 12/02/2024 DRUG MONIT OR, PANEL 1, SCREE N, URINE opiates NEGATI VE NG/mL <100 See Note A See Note A Not Available [facility] [address] [address] [address], [place], [address], 12/02/2024 16:55:38 11/30/19 25 12/02/2024 DRUG MONIT OR, PANEL 1, SCREE N, URINE oxycodone NEGATI VE NG/mL <100 See Note A See Note A Not Available [facility] [address] [address], [place], [address], 12/02/2024 16:55:38 11/30/19 25 12/02/2024 DRUG MONIT OR, PANEL 1, SCREE N, URINE phencyclidin e NEGATI VE NG/mL <25 See Note A See Note A Not Available [facility] [address] [address] [address], [place], [address], 12/02/2024 16:55:38 11/30/19 25 12/02/2024 DRUG MONIT OR, PANEL 1, SCREE N, URINE creatinine 301.5 mg/dL > or = 20.0 Not Available [address] [address] [place], [address], 12/02/2024 16:55:38 11/30/1912/02/2024 DRUG MONIT OR, PANEL 1, SCREE N, URINE pH 5.7 4.5-9. 0 Not Available [address] [address] [place], [address], 12/02/2024 16:55:38 11/30/1912/02/2024 DRUG MONIT OR, PANEL 1, SCREE N, URINE oxidant NEGATI VE mcg/m L <200 Not Available [address] [address] [place], [address], 12/02/2024 16:55:38 11/30/1912/02/2024 DRUG MONIT ORING TEMPL ATE notes and comments This drug testi ng is for medic al treat ment only. David sis was perfo rmed as non-f orens ic testi ng and these resul ts shoul d be used only by [facility] provi ders to rende r diagn osis or treat ment, or to monit or progr ess of medic al condi tions . Note A: The resul ts are presu mptiv e; based only on tracy ann ds, and they have not been confi rmed by a defin itive metho d. [facility] Provi ders needi ng Inter preta tion naomi tance , pleas e conta ct us at 1.877 .40.R XTOX (1.87 [phone] ) M-F, 8am to 10pm EST Not Available [address] [address] [address] , [place], [address], 12/02/2024 16:55:39 11/30/1912/02/2024 CULTU RE, URINE , ROUTI NE culture, urine, routine SEE NOTE CULTU RE, URINE , ROUTI NE Micro Numbe r: [id number] Test Statu s: Final Speci men Sourc e: Urine Speci men Quali ty: Adequ ate Resul t: No Growt h Not Available [address] [address] [place], [address], 12/02/2024 16:55:40 12/29/1901/07/2025 QNATA L(R) ADVAN KEVYN number of fetuses? 1 Not Available [address] [address] [place], [address], 01/07/2025 02:37:56 12/29/1901/07/2025 QNATA L(R) ADVAN KEVYN advanced maternal age? NOT GIVEN Not Available [address] [address] [place], [address], 01/07/2025 02:37:56 12/29/19 25 01/07/2025 QNATA L(R) ADVAN KEVYN abnormal rafy? NOT GIVEN Not Available [address] [address] [place], [address], 01/07/2025 02:37:56 12/29/19 25 01/07/2025 QNATA L(R) ADVAN KEVYN abnormal US? NOT GIVEN Not Available [address] [address] [place], [address], 01/07/2025 02:37:56 12/29/1901/07/2025 QNATA L(R) ADVAN KEVYN personal/fam history? NOT GIVEN Not Available [facility] [address] [address] [place], [address], 01/07/2025 02:37:56 12/29/1901/07/2025 QNATA L(R) ADVAN KEVYN interpretati on SEE NOTE This speci men showe d an expec savi repre senta tion of chrom osome 21, 18, and 13 mater ial. See Kaley loo below . 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 interpretati on SEE NOTE Consi stent with a male fetus . Not Available [facility] [address] [address] [place], [address], 01/07/2025 02:37:56 12/29/19 25 01/07/2025 QNATA L(R) ADVAN KEVYN sex chromosome NO ANEUPL OIDY Not Available [facility] [address] [address] [place], [address], 01/07/2025 02:37:56 12/29/19 25 01/07/2025 QNATA L(R) ADVAN KEVYN sex chromosome interp SEE NOTE No appar ent abnor malit y was detec savi. See Limi tatio ns below . Not Available [address], [address], 01/07/2025 02:37:56 12/29/19 25 01/07/2025 QNATA L(R) ADVAN KEVYN microdeletio n NOT DETECT ED Not Available [address], [address], 01/07/2025 02:37:56 12/29/19 25 01/07/2025 QNATA L(R) ADVAN KEVYN microdeletio n interp SEE NOTE No appar ent abnor malit y was detec savi. See Limi tatio ns below . Not Available [address], [address], 01/07/2025 02:37:56 12/29/19 25 01/07/2025 QNATA L(R) ADVAN KEVYN gestational age(in weeks) 10 Not Available [address], [address], 01/07/2025 02:37:56 12/29/19 25 01/07/2025 QNATA L(R) ADVAN KEVYN gestational age (in days) 6 Not Available [address], [address], 01/07/2025 02:37:56 12/29/19 25 01/07/2025 QNATA L(R) ADVAN KEVYN fraction 12.40% Not Available [address], [address], 01/07/2025 02:37:56 12/29/19 25 01/07/2025 QNATA L(R) ADVAN KEVYN laboratory comments SEE NOTE A porti on of the testi ng was perfo rmed at [facility] . Labor atory resul ts and submi tted clini toña infor matio n revie wed by Emma crooks, Ph.D. , HCLD. Not Available [facility] [address] [place], [address], 01/07/2025 02:37:56 12/29/19 25 01/07/2025 QNATA L(R) ADVAN KEVYN limitations SEE NOTE QNata l(R) Advan kevyn is a cell- free DNA scree carin test that scree ns for incre ased risk of certa in chrom osoma l abnor malit ies that may cause defec ts, inclu ding Triso my 21 (Down syndr ome), Triso my 18, Triso my 13, and certa in sex chrom osome abnor malit ies (i.e. , 45,X, 47,XX Y, 47,XX X, and 47,XY Y), as well as sex. In addit ion, if selec savi as an optio n, QNata l(R) Advan kevyn can scree n for certa in micro delet ions (i.e. , 22q, 5p, 1p36, 15q, 11q, 8q, and 4p) that may cause defec ts. This test does not asses s the risk of abnor malit ies such as neura l tube defec ts or ventr al wall defec ts and shoul d not be consi dered in isola tion from other clini toña findi ngs and labor atory test resul ts. QNata l(R) Advan kevyn has been valid ated in [place]l [place] pregn ancie s for the triso mies and sex chrom osome abnor malit ies liste d above , as well as for micro delet ions, and for the deter minat ion of sex. Sex chrom osome aneup loidy david sis is only perfo rmed in [place]l [place] pregn ancie s. This scree carin test has also been valid ated in twin pregn ancie s for the triso mies liste d above and for micro delet ions, but not for the sex chrom osome abnor malit ies due to limit ed data. This scree carin test has not been valid ated in highe r order pregn ancie s (more than two) becau se limit ed data is avail able. Sex chrom osoma l aneup loidy resul ts issue d for pregn ancie s confi rmed to be of multi ple gesta tions are not valid and shoul d be disre gardlyle d. Micro delet ion scree carin is limit ed to the speci fied micro delet ion regio ns (see Meth odolo gy ). The Y chrom osome is david zed for the deter minat ion of sex. The sensi tivit y and speci ficit y of sex deter minat ion david sis may be less than that of the Triso my 21, 18, and 13 david sis and this deter minat ion can be confo unded by vanis leesa twin syndr ome in pregn ancie s that were origi carter multi ple gesta tion pregn ancie s. It shoul d be noted that QNata l(R) Advan kevyn is a quant itati ve david sis of mater nal and place ntal cfDNA . As a resul t, the accur acy of scree carin resul ts may be affec savi by the prese nce of chrom osome abnor malit ies or micro delet ions that are mater nal or confi mildred place ntal in origi n. Not Available [address], [address], 01/07/2025 02:37:56 12/29/19 25 01/07/2025 QNATA L(R) ADVAN KEVYN specificatio ns SEE NOTE Sensi tivit y Speci ficit y T21 >99.9 % >99.9 % T18 >99.9 % >99.9 % T13 >99.9 % >99.9 % Accur acy Y >99.9 % Perfo rmanc e of the QNata l Advan kevyn labor atory -deve loped test (LDT) has been deter mined based on inter nal david tical asses sment . Not Available [email or web address] [place] [address] [place], [address], 01/07/2025 02:37:56 12/29/1901/07/2025 QNATA L(R) ADVAN KEVYN methodology SEE NOTE Circu latin g cell- free (cf) DNA was isola savi from plasm a follo wed by detec tion on a massi vely paral lel seque ncing platf orm. Bioin forma tic david sis was perfo rmed to deter mine the repre senta tion of chrom osome s 21, 18, 13, X and Y in circu latin g cell- free DNA. The repre senta tion of seque nces from the criti toña regio ns invol rocio in 1p36 micro delet ion syndr ome (1p36 ), Gilson- Krishna hhorn syndr ome (4p), Cri-d u-kendra t syndr ome (5p), Kelby Shaver alphonso syndr ome (8q), Suhail sen syndr ome (11q) , Prade r Willi syndr ome/A ngelm an syndr ome (15q) , and DiGeo rge syndr ome (22q) is evalu ated for the detec tion of micro delet ions if reque sted. Perfo rmanc e valente cteri stics refer to the david tical perfo rmanc e of this scree carin test. This scree carin test is perfo rmed pursu ant to a licen se agree ment with [facility]. QNata l Advan kevyn is a labor atory devel oped test that has been devel oped and valid ated, pursu ant to the Clini toña Labor atory Impro vemen ts Amend ments of 1987 (CLIA ), and as such it has not been revie wed by FDA. Not Available [facility] [address], [address], 01/07/2025 02:37:56 02/22/2002/22/2025 URINA LYSIS , COMPL ETE color DARK YELLOW yellow normal Not Available [facility] [address] [place], [address], 02/22/2025 20:50:29 02/22/20 25 02/22/2025 URINA LYSIS , COMPL ETE appearance CLOUDY clear abnormal Not Available [address], [address], 02/22/2025 20:50:29 02/22/20 25 02/22/2025 URINA LYSIS , COMPL ETE specific gravity 1.029 1.001- 1.035 normal Not Available [address], [address], 02/22/2025 20:50:29 02/22/20 25 02/22/2025 URINA LYSIS , COMPL ETE pH 5.5 5.0-8. 0 normal Not Available [address], [address], 02/22/2025 20:50:29 02/22/20 25 02/22/2025 URINA LYSIS , COMPL ETE glucose NEGATI VE negati ve normal Not Available [address] [address], [address], 02/22/2025 20:50:29 02/22/20 25 02/22/2025 URINA LYSIS , COMPL ETE bilirubin NEGATI VE negati ve normal Not Available [address], [address], 02/22/2025 20:50:29 02/22/20 25 02/22/2025 URINA LYSIS , COMPL ETE ketones TRACE negati ve abnormal Not Available [address], [address], 02/22/2025 20:50:29 02/22/20 25 02/22/2025 URINA LYSIS , COMPL ETE occult blood NEGATI VE negati ve normal Not Available [address], [address], 02/22/2025 20:50:29 02/22/20 25 02/22/2025 URINA LYSIS , COMPL ETE protein TRACE negati ve abnormal Not Available [address], [address], 02/22/2025 20:50:29 02/22/20 25 02/22/2025 URINA LYSIS , COMPL ETE nitrite NEGATI VE negati ve normal Not Available [address], [address], 02/22/2025 20:50:29 02/22/20 25 02/22/2025 URINA LYSIS , COMPL ETE leukocyte esterase 1+ negati ve abnormal Not Available [address], [address], 02/22/2025 20:50:29 02/22/20 25 02/22/2025 URINA LYSIS , COMPL ETE WBC 6-10 /hpf < or = 5 abnormal Not Available [address], [address], 02/22/2025 20:50:29 02/22/20 25 02/22/2025 URINA LYSIS , COMPL ETE RBC NONE SEEN /hpf < or = 2 normal Not Available [address], [address], 02/22/2025 20:50:29 02/22/20 25 02/22/2025 URINA LYSIS , COMPL ETE squamous epithelial cells 10-20 /hpf < or = 5 abnormal Not Available [address], [address], 02/22/2025 20:50:29 02/22/20 25 02/22/2025 URINA LYSIS , COMPL ETE bacteria MANY /hpf none seen abnormal Not Available [address], [address], 02/22/2025 20:50:29 02/22/20 25 02/22/2025 URINA LYSIS , COMPL ETE hyaline cast NONE SEEN /lpf none seen normal Not Available [address], [address], 02/22/2025 20:50:29 02/22/20 25 02/22/2025 URINA LYSIS , COMPL ETE note This urine was david zed for the prese nce of WBC, RBC, bacte wilma, casts , and other forme d eleme nts. Only those eleme nts seen were repor savi. Not Available [address], [address], 02/22/2025 20:50:29 02/22/20 25 02/22/2025 CHLAM YDIA/ N. GONOR RHOEA E RNA, TMA, UROGE NITAL chlamydia trachomatis RNA, tma, urogenital NOT DETECT ED not detect ed normal Not Available [address], [address], 02/22/2025 20:50:31 02/22/20 25 02/22/2025 CHLAM YDIA/ N. GONOR RHOEA E RNA, TMA, UROGE NITAL neisseria gonorrhoeae RNA, tma, urogenital NOT DETECT ED not detect ed normal Not Available [facility] [address], [address], 02/22/2025 20:50:31 02/22/20 25 02/22/2025 CHLAM YDIA/ N. GONOR RHOEA E RNA, TMA, UROGE NITAL comment The david tical perfo rmanc e valente cteri stics of this assay , when used to test SureP ath(T M) speci mens have been deter mined by [facility]. The modif icati ons have not been clear ed or appro rocio by the FDA. This assay has been valid ated pursu ant to the CLIA regul ation s and is used for clini toña purpo ses. For addit ional infor brendon perry refer to https ://ed ucati on.qu ct [employer]. com/f aq/FA Q154 (This link is being provi ded for infor edd pino/ cachorro gagnon purpo ses only. ) Not Available [address], [address], 02/22/2025 20:50:31 02/22/20 25 02/22/2025 CULTU RE, URINE , ROUTI NE culture, urine, routine SEE NOTE CULTU RE, URINE , ROUTI NE Micro Numbe r: [id number] Test Statu s: Final Speci men Sourc e: Urine Speci men Quali ty: Adequ ate Resul t: Less than 10,00 0 CFU/m L of singl e Gram posit ambar organ ism isola savi. No furth er testi ng will be perfo rmed. If clini lisa indic ated, recol lecti on using a metho d to minim ize conta minat ion, with promp t trans robert to Urine Cultu re Trans port Tube, is recom damian d. Not Available [address], [address], 02/22/2025 20:50:31 04/11/20 25 04/12/2025 SURES WAB(R ) ADVAN KEVYN VAGIN ITIS PLUS, TMA sureswab(R) adv bacterial vaginosis (bv), tma POSITI VE negati ve abnormal Not Available [facility] [address], [address], 04/12/2025 16:32:03 04/11/20 25 04/12/2025 SURES WAB(R ) ADVAN KEVYN VAGIN ITIS PLUS, TMA regine species NOT DETECT ED not detect ed normal Not Available [address], [address], 04/12/2025 16:32:03 04/11/20 25 04/12/2025 SURES WAB(R ) ADVAN KEVYN VAGIN ITIS PLUS, TMA regine glabrata NOT DETECT ED not detect ed normal Deborah da speci es C. albic ans, C. tropi calis , C. parap alireza is, and/o r C. dubli suresh is can be detec savi, but not diffe renti ated, in the Deborah da spp. resul t. Not Available [facility] [address], [address], 04/12/2025 16:32:03 04/11/20 25 04/12/2025 SURES WAB(R ) ADVAN KEVYN VAGIN ITIS PLUS, TMA trichomonas vaginalis (TV), tma NOT DETECT ED not detect ed normal Not Available [facility] [address], [address], 04/12/2025 16:32:03 04/11/20 25 04/12/2025 SURES WAB(R ) ADVAN KEVYN VAGIN ITIS PLUS, TMA chlamydia trachomatis RNA, tma, urogenital NOT DETECT ED not detect ed normal Not Available [facility] [address] [address] [place], [address], 04/12/2025 16:32:03 04/11/20 25 04/12/2025 SURES WAB(R ) ADVAN KEVYN VAGIN ITIS PLUS, TMA neisseria gonorrhoeae RNA, tma, urogenital NOT DETECT ED not detect ed normal For addit ional infor brendon perry refer to https ://ed ucati on.qu ct [employer]. [employer]/f aq/FA Q154 (This link is being provi ded for janel pino/ cachorro rodriguez ses only. ) Not Available [facility] [address], [address], 04/12/2025 16:32:03 04/27/20 25 04/27/2025 CBC WBC 11.6 x10 4.0-10 .5 high Not Available [facility] [address] [facility] [address], [place], [address], 04/27/2025 14:49:23 04/27/20 25 04/27/2025 CBC RBC 4.25 x10 3.50-5 .50 Not Available [facility] [address] [facility] [address], [place], [address], 04/27/2025 14:49:23 04/27/20 25 04/27/2025 CBC HGB 12.8 g/dL 12.0-1 6.0 Not Available [facility] [address] [facility] [address], [place], [address], 04/27/2025 14:49:23 04/27/20 25 04/27/2025 CBC HCT 38.5 % 37.0-4 7.0 Not Available [facility] [address] [facility] [address], [place], [address], 04/27/2025 14:49:23 04/27/20 25 04/27/2025 CBC MCV 90.7 fL 80.0-9 9.9 Not Available [facility] [address] [facility] [address], [place], [address], 04/27/2025 14:49:23 04/27/20 25 04/27/2025 CBC MCH 30.0 pg 27.0-3 2.0 Not Available [facility] [address] [facility] [address], [place], [address], 04/27/2025 14:49:23 04/27/20 25 04/27/2025 CBC MCHC 33.2 g/dL 32.0-3 6.0 Not Available [facility] [address] [facility] [address], [place], [address], 04/27/2025 14:49:23 04/27/20 25 04/27/2025 CBC RDW 13.5 % 11.5-1 4.5 Not Available [facility] [address] [facility] [address], [place], [address], 04/27/2025 14:49:23 04/27/20 25 04/27/2025 CBC plt 235.8 x10 140.0- 451.0 Not Available [facility] [address] [address], [place], [address], 04/27/2025 14:49:23 04/27/20 25 04/27/2025 CBC lymphocytes % 13.1 % 20.0-5 0.0 low Not Available [facility] [address] [facility] [address], [place], [address], 04/27/2025 14:49:23 04/27/20 25 04/27/2025 CBC granulcytes % 82.0 % 30.0-7 0.0 high Not Available [facility] [address] [address], [place], [address], 04/27/2025 14:49:23 04/27/20 25 04/27/2025 CBC monocytes % 3.5 % 2.0-16 .0 Not Available [facility] [address] [address], [place], [address], 04/27/2025 14:49:23 04/27/20 25 04/27/2025 CBC granulcytes# 9.6 x10 Not Rochelle ilable [facility] [address] [address], [place], [address], 04/27/2025 14:49:23 04/27/20 25 04/27/2025 CBC lymphocytes # 1.5 x10 Not Available [facility] [address] [address], [place], [address], 04/27/2025 14:49:23 04/27/20 25 04/27/2025 CBC monocytes # 0.4 x10 Not Avai yisselle [facility] [address] [facility] [address], [place], [address], 04/27/2025 14:49:23 04/27/20 25 04/27/2025 GLUCO SE TRACY Pino glucose screen 131.0 mg/dL Not Available [facility] [address] [facility] [address], [place], [address], 04/27/2025 15:20:26 06/21/20 25 06/25/2025 STREP TOCOC CUS, GROUP B CULTU RE streptococcu s, group B culture SEE NOTE STREP TOCOC CUS, GROUP B CULTU RE Micro Numbe r: [id number] Test Statu s: Final Speci men Sourc e: Vagin al/an orect al Speci men Quali ty: Adequ ate Resul t: No group B Strep tococ cus isola savi Note per CDC guide lines optim al recov judith is achie rocio by swabb ing both the lower vagin a and rectu m (thro ugh the anal sphin cter) . Not Available [facility] [address] , [place], [address], 06/25/2025 08:34:39 01/12/20 25 12/13/2024 US, obste tric, 1st trime ster No observ ation record ed. [email or web address] Not Available 01/11 16:03:51 03/13/20 25 03/08/2025 US, obste tric, 2nd trime ster No observ ation record ed. [email or web address] [facility] [address] [place], [address], 03/13/2025 09:48:39 04/11/20 25 04/11/2025 US, obste tric No observ ation record ed. [email or web address] [facility] [address] [place], [address], 04/12/2025 10:15:03 06/12/20 25 06/07/2025 US, obste tric, 2nd trime ster No observ ation record ed. [email or web address] [facility] [address] [place], [address], 06/12/2025 16:35:55 Result Notes None recorded. Problems Name Problem SNOMED Code Status Onset Date Resolution Date Notes Provider Name and Address Organization Details Recorded Time 54311127 Active 2024 Tila lane [facility] 13:20:02 Moderate recurrent major depression 47538319 Active 2024 Tila [address], [facility] 13:19:49 Anxiety 41621800 Active 2024 [address], [facility] 13:19:30 Mild hyperemesis gravidarum 39314369 Active 2024 Hayes Najera MD [address] [place] [address], [address], [facility] 12:23:09 Seasonal allergic rhinitis 758003592 Active 2024 Hayes Najera MD [address] [place] [address], [address], [facility] 09:47:54 Gestation period, 15 weeks 7633543 Active 2024 Hayes Najera MD [address] [place] [address], [address], [facility] 12:09:14 Dysuria 48470235 Active 2024 Hayes Najera MD [address] [place] [address], [address], [facility] 12:36:01 Gestation period, 18 weeks 60273298 Active 2024 Hayes Najera MD [address] [place] [address], [address], [facility] 18:21:56 Gestation period, 23 weeks 88978040 Active 2024 Hayes Najera MD [address] [place] [address], [address], [facility] 17:15:19 Bleeding from female genital tract during 6604868067988 9109 Active 2024 Hayes Najera MD [address] [place] [address], [address], [facility] 12:47:08 Bacterial vaginosis 716709458 Active 2024 Hayes Najera MD [address] [place] [address], [address], [facility] 09:20:13 Gestation period, 25 weeks 31775332 Active 2024 Hayes Najera MD [address] [place] [address], [address], [facility] 08:05:11 Gestation period, 25 weeks 29863049 Active 2024 Hayes Najera MD [address] [place] [address], [address], [facility] 08:05:11 Nausea 811372502 Active 2024 Hayes Najera MD [address] [place] [phone], [facility] 15:20:27 Gestation period, 28 weeks 08608435 Active 2024 Hayes Najera MD [address] [place], [place] [phone], [facility] 5 12:22:24 Gestation period, 28 weeks 52947335 Active 2024 Hayes Najera MD [address] [place] [address], [address], [facility] 5 12:22:24 Gestation period, 7 weeks 85940894 Active 2024 Hayes Najera MD [address] [place] [address], [address], [facility] 10:06:07 Gestation period, 27 weeks 28866568 Active 2024 Hayes Najera MD [address] [place] [address], [address], [facility] 10:06:33 Gestation period, 27 weeks 59039471 Active 2024 Hayes Najera MD [address] [place] [address], [address], [facility] 10:06:33 Insomnia 264578173 Active 2024 Hayes Najera MD [address] [place] [address], [address], [facility] 15:34:11 growth restriction 45084143 Active 2024 Hayes Najera MD [address] [place] [address], [address], [facility] 15:37:48 Rectal hematoma 856830845 Active 2024 Hayes Najera MD [address] [place] [address], [address], [facility] 11:35:15 Gestation period, 33 weeks 98052949 Active 2024 Hayes Najera MD [address] [place] [address], [address], [facility] 12:19:40 Pain in female genitalia 155892960 Active 2024 Hayes Najera MD [address] [place] [phone], [facility] 12:58:13 Premature uterine contraction 260083635 Active 2024 Hayes Najera MD [address] [place] [address], [address], [facility] 15:00:37 Gestation period, 37 weeks 20906496 Active 2024 Hayes Najera MD [address] [place] [address], [address], [facility] 12:51:53 Problem Notes None recorded. Medical Equipment [...] Available Not Available No t Available [employer] active Not Available Not A vailable Not [...] Details Last Updated DateTime 5 162.56 cm 22.9 kg/m2 27541.8 8 g 97.4 [degF] 99 % 99 % 97 /min [facility] L.LDianeCDiane 5 12:24:08 Social History Question Answer Notes LastModified by Organizat ion Details LastModified Time Tobacco Smoking Status Former Smoker Tila Ford [facility] 03/23/2025 14:32:56 Are You Blind Or Do You Have Difficulty Seeing? No Information not available 11/29/2024 What Is Your Level Of Caffeine Consumption? Moderate Information not available 11/29/2024 What Type Of Diet Are You Following? REGULAR Information not available 11/29/2024 What Was The Date Of Your Most Recent Tobacco Screening? 07/04/2025 [email or web address] Information not available 07/04/2025 What Is Your Relationship Status? Single Information not available 11/29/2024 At What Age Did You Start Smoking Tobacco? 18 [email or web address] Information not available 03/23/2025 How Much Tobacco Do You Smoke? No Information not available 04/11/2025 Do You Have Difficulty Walking Or Climbing Stairs? No Information not available 11/29/2024 Sex: Unknown Functional Status Question Answer Note LastModified by Organizat ion Details LastModified Time Do you use any [...] Recorded Time Tdap 5 completed Antonietta Noriega [facility] 04/27/2025 12:47:39 DTP 4 completed Not Available [facility] 07/04/2025 12:59:02 Hib (PRP-T) 4 completed Not Available [facility] 07/04/2025 12:59:02 OPV, trivalent 4 completed Not Available [facility] 07/04/2025 12:59:02 DTP 4 completed Not Available [facility] 07/04/2025 12:59:02 Hib (PRP-T) 4 completed Not Available [facility] 07/04/2025 12:59:02 MMR 5 completed Not Available [facility] 07/04/2025 12:59:02 DTP 5 completed Not Available [facility] 07/04/2025 12:59:02 Hib (PRP-T) 5 completed Not Available [facility] 07/04/2025 12:59:02 OPV, trivalent 5 completed Not Available [facility] 07/04/2025 12:59:02 DTP 7 completed Not Available [facility] 07/04/2025 12:59:02 Hep B, unspecified formulation 7 completed Not Available [facility] 07/04/2025 12:59:02 Hep B, unspecified formulation 7 completed Not Available [facility] 07/04/2025 12:59:02 Hep B, unspecified formulation 8 completed Not Available [facility] 07/04/2025 12:59:02 OPV, trivalent 9 completed Not Available [facility] 07/04/2025 12:59:02 MMR 9 completed Not Available [facility] 07/04/2025 12:59:02 Tdap 1 completed Not Available [facility] 07/04/2025 12:59:02 Influenza, split virus, quadrivalent, PF 3 completed Not Available [facility] 07/04/2025 12:59:02 Influenza, split virus, quadrivalent, PF 4 completed Not Available [facility] 07/04/2025 12:59:02 Past Encounters Encounter ID Performer Location Encounter Start Date Encounter Closed Date Diagnosis/Indication Diagnosis SNOMED-CT Code Diagnosis ICD10 Code Diagnosis IMO Codes Diagnosis Note [id number] Hayes Najera MD [facility] ([facility]) [address] [place] [phone] 06/07/2025 11:22:01 06/08/2025 16:48:18 [id number] Hayes Najera MD [facility]) [address] [place] [phone] 5 06/07/2025 11:37:54 06/07/2025 13:05:48 Normal in multigravida 9551390028 09961 Z34.80 73871770 - Anticipato ry guidance provided with reassuranc e on symptoms. - Recommende d rest and light activity. - Advised on sleep aids, such as Benadryl and warm baths. - Monitoring growth through ultrasound results. Gestation period, 33 weeks 90811483 Z3A.33 3192217 Dysuria 97932053 R30.0 68071 - Obtain urine analysis and culture to explore infection. - Consider additional testing for STDs based on culture outcomes. - Follow-up planned in two weeks, potentiall y more frequent as term approaches . Pain in fe male genitalia 184001228 N94.9 5349773 -discussed interventi ons to help alleviate symptoms [id number] Hayes Najera MD [facility] ([facility]) [address] [place] [phone] 06/15/2025 14:22:51 06/15/2025 15:08:47 Premature labor 2292412 O60.03 - Continue medication to control contractio ns. - Administer a second steroid injection for developmen t. - Maintain pelvic rest and avoid intercours e. - Increase fluid intake and ensure adequate rest. - Return for evaluation if contractio ns or bleeding increase. [id number] Hayes Najera MD [facility] ([facility]) [address] [place] [phone] 06/21/2025 11:58:21 06/21/2025 13:06:42 Normal in multigravida 3779862499 40040 Z34.80 71182660 - Anticipato ry guidance provided with reassuranc e on symptoms. - Recommende d rest and light activity. - Advised on sleep aids, such as Benadryl and warm baths. - Monitoring growth through ultrasound results. - Discussed handling of constipati on with increased fluids and fiber intake, monitoring contractio ns and signs of labor. 39371806 Z33.1 [id number] Hayes Najera MD [facility] ([facility]) [address] [place] [phone] 06/27/2025 12:03:20 06/27/2025 12:35:22 Premature uterine contraction 135044407 O47.03 30415476 stop nifedipine at 37 wga Multigravida 692327892 Z 34.83 56957628 - Ultrasound performed; no concerns noted. - Due date confirmed as 07/20/2025 . - Discussed anticipato ry guidance for medication cessation at 37 weeks. - Patient interested in Q mayte testing; further discussion provided. - Plan for tubal ligation post-deliv judith; consent form to be signed today. [id number] Hayes Najera MD [facility] ([facility]) [address] [place] [phone] 07/04/2025 12:15:20 07/04/2025 12:51:35 Urinary tract infectious disease 96174619 N39.0 - Continue antibiotic therapy with Macrobid. - Observe for resolution of symptoms post-cours e. Normal pre gnancy in multigravida 9376902596 79953 Z34.80 34134914 - Anticipato ry guidance provided with reassuranc e on symptoms.- - Monitor labor signs.- Educate the patient on signs that necessitat e immediate evaluation . Gestation period, 37 weeks 63318343 Z3A.37 7279867 Health Concerns Section Related Observation LastModified by Organization Detai ls LastModified Time None Recorded Concern Status LastModified by Organization Details LastModified Time None Recorded Payers Encounter Date Sequence Insurance Name Policy Number Policy [place] Covered Member ID [place] Member ID Guarantor Name 07/04/2025 1 [employer] (MEDICARE REPLACEMENT/A DVANTAGE - PPO) Radha Lea [id number] Radha Lea 07/04/2025 2 [place] Radha Lea [id number] Radha Lea Notes Date Note Type Note Provider Name and Address Organization Details Recorded Time text/html jr ob routineReported by PatientHPIFor associated [...] no further bleeding noted Hayes Najera MD [address] [place] [address], [phone], [facility], [facility] 07/04/2025 12:52:12 OBGyn Episode Ob Episode Information Episode Created Date Number of Fetuses Patient Bloodtype Patient rh Status Prepregnancy Weight lbs Domestic Partner Domestic Partner Phone Father Name Skip Miner Status 11/29/19 25 1 O Positive OPEN Fetus Data First Name Last Name Admitted to NICU Weight (g) Sex Living Outcome Pediatric Complications Fetus ID Race Codes Race Delivery Type [id number] Problems Problem Notes Problem Name Start Date End Date Resolution Snomed Code Not e Gestation period, 27 weeks 04/30/2025 46 411513 Gestation period, 28 weeks 04/27/2025 90 561229 Gestation period, 25 weeks 04/14/2025 72 298407 Carlos Calculation Initial Carlos Date Initial Exam [...] in lbs Pre/Post Dialysis Refused With clothes 152.053216447718 BP Diastolic BP Location Tested BP Systolic [...] in lbs Pre/Post Dialysis Refused With clothes 153.512864193153 BP Diastolic BP Location Tested BP Systolic BP Type 82 L arm 120 sitting Fetus Heart Rate Present Fetus Movement Comments Flowsheet Date 01/24/2025 Georges Score Blood Edema Fundus Height Fundus Units Glucose Ketones Leukocytes Nitrite Labor Signs Protein Cervic Dilation Cervic Effacement Cervic Station none none Negative trace Type Weight in lbs Pre/Post Dialysis Refused With clothes 153.728221834853 BP Diastolic BP Location Tested BP Systolic BP Type 76 L arm 120 sitting Fetus Heart Rate Present A 150 Fetus Movement A No Comments Flowsheet Date 02/21/2025 Georges Score Blood Edema Fundus Height Fundus Units Glucose Ketones Leukocytes Nitrite Labor Signs Protein Cervic Dilation Cervic Effacement Cervic Station none none Negative trace Type Weight in lbs Pre/Post Dialysis Refused With clothes 157.976324668047 BP Diastolic BP Location Tested BP Systolic [...] Weight in lbs Pre/Post Dialysis Refused Stated 162.097123142027 BP Diastolic BP Location Tested BP Systolic [...] Weight in lbs Pre/Post Dialysis Refused Weight 164.947699145642 BP Diastolic BP Location Tested BP Systolic BP Type 82 126 Fetus Heart Rate Present A 160 Fetus Movement A Yes Comments Flowsheet Date 04/24/2025 Georges Score Blood Edema Fundus Height Fundus Units Glucose Ketones Leukocytes Nitrite Labor Signs Protein Cervic Dilation Cervic Effacement Cervic Station 27 cm none none Negative trace Type Weight in lbs Pre/Post Dialysis Refused Weight 163.392436678954 BP Diastolic BP Location Tested BP Systolic [...] in lbs Pre/Post Dialysis Refused With clothes 165.362446160484 BP Diastolic BP Location Tested BP Systolic BP Type 58 L arm 105 sitting Fetus Heart Rate Present A 145 Fetus Movement A Yes Comments Flowsheet Date 05/23/2025 Georges Score Blood Edema Fundus Height Fundus Units Glucose Ketones Leukocytes Nitrite Labor Signs Protein Cervic Dilation Cervic Effacement Cervic Station 29 cm Type Weight in lbs Pre/Post Dialysis Refused Weight 166.071753012893 BP Diastolic BP Location Tested BP Systolic [...] Weight in lbs Pre/Post Dialysis Refused Weight [id number] BP Diastolic BP Location Tested BP Systolic BP Type 86 122 Fetus Heart Rate Present A 150 Fetus Movement A Yes Comments Flowsheet Date 06/15/2025 Georges Score Blood Edema Fundus Height Fundus Units Glucose Ketones Leukocytes Nitrite Labor Signs Protein Cervic Dilation Cervic Effacement Cervic Station 32 cm none none Negative 1+ Type Weight in lbs Pre/Post Dialysis Refused Weight [id number] BP Diastolic BP Location Tested BP Systolic BP Type 84 132 Fetus Heart Rate Present A 140 Fetus Movement A Yes Comments Flowsheet Date 06/21/2025 Georges Score Blood Edema Fundus Height Fundus Units Glucose Ketones Leukocytes Nitrite Labor Signs Protein Cervic Dilation Cervic Effacement Cervic Station trace none none Negative trace Type Weight in lbs Pre/Post Dialysis Refused With clothes [id number] BP Diastolic BP Location Tested BP Systolic [...] Weight in lbs Pre/Post Dialysis Refused Weight 172.598084745347 BP Diastolic BP Location Tested BP Systolic BP Type 78 110 Fetus Heart Rate Present A 160 Fetus Movement A Yes Comments Flowsheet Date 07/04/2025 Georges Score Blood Edema Fundus Height Fundus Units Glucose Ketones Leukocytes Nitrite Labor Signs Protein Cervic Dilation Cervic Effacement Cervic Station none none Negative 1+ 2cm 50% - 3 Type Weight in lbs Pre/Post Dialysis Refused Weight 133.247001507824 BP Diastolic BP Location Tested BP Systolic [...] At Estimated Date of Delivery false Thalassemia (Upper Sorbian, Lebanese, Mediterranean, Or Background): MCV < 80 false Neural Tube Defect (Meningom yelocele, Spina Bifida, Or Anencephaly) false Congenital Heart Defect false Down Syndrome false Negro-Sachs (eg, Hindu, Cajun, Venezuelan-Bangladeshi) f alse Goldie Disease false Sickle Cell Disease Or Trait () false Hemophilia Or Other Blood Disorders false Muscular Dystrophy false Cystic Fibrosis false Alexandria's Chorea false Intellectual Disability/Autism false If Yes, [...]
[2025-07-10 12:01] VITALS: BP 131/86; PULSE 64; TEMP 36.6; O2SAT 98; BMI 27.8
--- NOTE | 2025-07-10 13:16 | ED_ITS ---
HPI - Headache 2 General: Chief Complaint: Headache Stated Complaint: Headache and lower abd pain Time Seen by Provider: 07/10/25 13:08 History of Present Illness: 30-year-old female with a history of rec ent childbirth who presents emergency room with a headache, some vaginal bleeding, cramping, bleeding and generalized malaise. She says her blood pressure was elevated at home and was concerned about preeclampsia. On presentation here her blood pressure is fairly normal at 131/86. Normal pulse. Abdomen is mildly tender to palpation. No fevers. No vomiting. She has some mild nausea. Vaginal bleeding is light. Patient is bottlefeeding. Related Data Home Medications ?Medication ?Instructions ?Recorded ?Confirmed 1 tab PO DAILY 06/30/2506/09 Previous Rx's ?Medication ?Instructions ?Recorded ibuprofen 800 mg tablet 800 mg PO TID #45 tabs 07/08 diclofenac sodium 50 mg 50 mg PO BID PRN pain #14 ta bs 07/10/25 tablet,delayed release ondansetron 8 mg disintegrating 8 mg PO Q6H #14 tabs 1 09/09/24 tablet Allergies Allergy/AdvReac Type Severity Reaction Status Date / Time No Known Allergies Allergy Verified 07/10/25 12:09 Review of Systems 2 Narrative: Constitutional symptoms: Negative except as documented in HPI. Skin symptoms: Negative except as documented in HPI. Eye symptoms: Negative except as documented in HPI. ENMT symptoms: Negative except as documented in HPI. Respiratory symptoms: Negative except as documented in HPI. Cardiovascular symptoms: Negative except as documented in HPI. Gastrointestinal symptoms: Negative except as documented in HPI. Genitourinary symptoms: Negative except as documented in HPI. Musculoskeletal symptoms: Negative except as documented in HPI. Neurologic symptoms: Negative except as documented in HPI. Psychiatric symptoms: Negative except as documented in HPI. Endocrine symptoms: Negative except as documented in HPI. PFSH ED 2 PFSH: Medical History (Updated 07/10/25 @ 14:59 by Gricelda Damian MD) Depression Encounter to establish care PID (pelvic inflammatory disease) No pertinent family history Surgical History No pertinent past surgical history Social History Smoking and tobacco/nicotine status: current every day tobacco/nicotine user (vapes and cigerretes) Physical Exam 2 Narrative: EXAM NARRATIVE: Constitutional symptoms: Negative except as documented in HPI. Skin symptoms: Negative except as documented in HPI. Eye symptoms: Negative except as documented in HPI. ENMT symptoms: Negative except as documented in HPI. Respiratory symptoms: Negative except as documented in HPI. Cardiovascular symptoms: Negative except as documented in HPI. Gastrointestinal symptoms: Negative except as documented in HPI. Genitourinary symptoms: Negative except as documented in HPI. Musculoskeletal symptoms: Negative except as documented in HPI. Neurologic symptoms: Negative except as documented in HPI. Psychiatric symptoms: Negative except as documented in HPI. Endocrine symptoms: Negative except as documented in HPI. Course 2 Vital Signs: Vital signs: Vital Signs Temperature 97.9 F 07/10/25 12:01 Pulse Rate 64 07/10/25 12:01 Blood Pressure 131/86 07/10/25 12:01 Pulse Oximetry 98 07/10/25 12:01 Oxygen Delivery Me thod Room Air, Nasal C annula 07/10/25 12:01 MDM - Headache Medical Decision Making Medical decision making: Patient's reason for coming to the emergency room: Headache and hypertension Social determinants: Patient is disabled. I reviewed the patient's medical record. Reviewed H&P for delivery notes and the draft of the discharge summary. I reviewed the patient's current home meds Patient does not take regular home meds. She is on ibuprofen at home currently. Alternate historians: Patient has a friend here who is a nurse who is more adept at giving her medical history. Differential diagnosis: including but not limited to and based on the above HPI, review of systems and physical exam: In this patient would have concern for anemia, urinary tract infection, dehydration etc. Orders placed to evaluate differential diagnosis based on the above differential, HPI and physical exam Lab Review: Laboratory results were reviewed and interpreted by myself the emergency room physician. No leukocytosis. No anemia. No renal failure. No urinary tract infection but urine is quite concentrated which would indicate dehydration. Assessment of risk: Level of risk: Mild Hospitalization considerations: Patient does not meet any criteria for admission today. Had she been more anemic or there have been concern for fever and infection admission would have been considered Reexamination: Patient remained stable. No increased work of breathing. No altered mental status. No focal motor deficits. Assessment and plan: Dehydration Headache Malaise ? Normal saline bolus, IV Toradol and IV Zofran. - Discharged home - Discussed plan with patient. Answered any questions. - Evaluation and treatment of this problem were appropriate in the emergency setting. Lab Data 07/10/25 13:59 07/10/25 13:59 Laboratory Results WBC 9.44 10^3/uL (3.29-11.43) 07/10/25 13:59 RBC 3.59 10^6/uL (3.85-5.65) L 07/10/25 13:59 Hgb 10.40 g/dL (11.27-16.99) L 07/10/25 13:59 Hct 32.0 % (36-47) L 07/10/25 13:59 MCV 89.1 fl (85-98) 07/10/25 13:59 MCH 29.0 pg (27-33) 07/10/25 13:59 MCHC 32.5 g/dL (30-55) 07/10/25 13:59 RDW 13.2 % (12.1-15.1) 07/10/25 13:59 Plt Count 234 10^3/cmm (157-399) 07/10/25 13:59 MPV 11.1 fL (7.4-10.4) H 07/10/25 13:59 Neut % (Auto) 77.7 % 07/10/25 13:59 Lymph % (Auto) 14.2 % 07/10/25 13:59 Rice % (Auto) 5.3 % 07/10/25 13:59 Eos % (Auto) 2.0 % 07/10/25 13:59 Baso % (Auto) 0.3 % 07/10/25 13:59 Neut # (Auto) 7.33 10^3/uL (1.8-7.7) 07/10/25 13:59 Lymph # (Auto) 1.3 10^3/uL (0.8-4.8) 07/10/25 13:59 Rice # (Auto) 0.5 10^3/uL (0.2-0.9) 07/10/25 13:59 Eos # (Auto) 0.2 10^3/uL (0.0-0.8) 07/10/25 13:59 Baso # (Auto) 0.0 10^3/uL (0.0-0.1) 07/10/25 13:59 Nucleated RBC % (auto) 0 % 07/10/25 13:59 Nucleated RBCs # 0.0 /100WBC 07/10/25 13:59 Sodium 137 mmol/L (136-145) 07/10/25 13:59 Potassium 3.8 mmol/L (3.5-5.1) 07/10/25 13:59 Chloride 104 mmol/L (98-107) 07/10/25 13:59 Carbon Dioxide 20 mmol/L (22-29) L 07/10/25 13:59 Anion Gap 16.8 (5-19) 07/10/25 13:59 BUN 13 mg/dL (6-20) 07/10/25 13:59 Creatinine 0.8 mg/dL (0.5-0.9) 07/10/25 13:59 GFR Calculation 83.1 mL/min (90-130) L 07/10/25 13:59 Glucose 82 mg/dL (65-115) 07/10/25 13:59 Calculated Osmolality 283 mOsm/kg (285-295) L 07/10/25 13:59 Calcium 9.2 mg/dL (8.5-10.5) 07/10/25 13:59 Total Bilirubin 0.4 mg/dL (0.15-1.2) 07/10/25 13:59 AST 26 U/L (0-32) 07/10/25 13:59 ALT 27 U/L (0-33) 07/10/25 13:59 Alkaline Phosphatase 154 U/L (35-105) H 07/10/25 13:59 Total Protein 7.2 g/dL (6.6-8.7) 07/10/25 13:59 Albumin 3.4 g/dL (3.5-5.2) L 07/10/25 13:59 Globulin 3.8 g/dL (1.3-4.6) 07/10/25 13:59 Urine Color Yellow (Yellow) 07/10/25 14:21 Urine Appearance Clear (CLEAR) 07/10/25 14:21 Urine pH 5.5 (5-7) 07/10/25 14:21 Ur Specific [place] 1.038 (1.005-1.030) H 07/10/25 14:21 Urine Protein 2+ (Negative) A 07/10/25 14:21 Urine Glucose (UA) Negative (Normal) 07/10/25 14:21 Urine Ketones Negative (Negative) 07/10/25 14:21 Urine Blood Negative (Negative) 07/10/25 14:21 Urine Nitrate Negative (Negative) 07/10/25 14:21 Urine Bilirubin Negative (Negative) 07/10/25 14:21 Urine Urobilinogen 1.0 mg/dL (Negative) 07/10/25 14:21 Ur Leukocyte Esterase Negative (Negative) 07/10/25 14:21 Urine RBC 0-2 /hpf (0-2) 07/10/25 14:21 Urine WBC 0-5 /hpf (0-5) 07/10/25 14:21 Ur Squamous Epith Cells 0-5 /hpf (0-5) 07/10/25 14:21 Amorphous Sediment Not Reportable 07/10/25 14:21 Urine Bacteria None seen /hpf (NONE) 07/10/25 14:21 Hyaline Casts 0.40 /lpf 07/10/25 14:21 Influenza A (PCR) Negative (Negative) 07/10/25 14:03 Influenza Type B (PCR) Negative (Negative) 07/10/25 14:03 RSV (PCR) Negative (Negative) 07/10/25 14:03 SARS-CoV-2 (PCR) Negative (Negative) 07/10/25 14:03 No radiology studies performed this visit Discharge Plan Discharge Patient Disposition: Home Clinical Impression: Headache, Dehydration Condition: Stable Prescriptions: New ondansetron 8 mg tablet,disintegrating 8 mg PO Q6H Qty: 14 0RF Rx Instructions: Take 1/2-1 tab every 6 hours as needed for nausea and vomiting diclofenac sodium 50 mg tablet,delayed release (DR/EC) 50 mg PO BID PRN (Reason: pain) Qty: 14 0RF No Action 1 tab PO DAILY ibuprofen 800 mg Tablet 800 mg PO TID Qty: 45 0RF Discharge Orders: Discharge ED (Routine); Ordered 07/10/25 Ordered By: Gricelda Damian Referrals: Ricardo Najera MD [Primary Care Provider, Family Practice] - 1-3 days Referral Note: Please call for follow-up with your PCP as soon as possible Discharge Diet: Usual diet Discharge Activity: Increase activity as tolerated Patient Instructions: Opioid Safety, Pain Management, Patient Portal & Karyna Instructions Activity Restrictions/Additional Instructions: Thank you for choosing [facility] for your healthcare needs today. You have been screened and evaluated and felt safe for discharge. Health conditions do change or evolve sometimes and as such it is important that you follow up with your Primary Doctor to be re checked, 3-5 days is a general good time frame for follow up. You are always welcome to return to the ED for re assessment if your symptoms are worsening or you have new concerns Print Language: Yakut Coding Level of Care Code ED Photographic Equipment Inspector for Benito Lewis
[2025-07-10 14:32] LABS: Glucose Urine UA Negative (Normal); Nitrate Urine Negative (Negative)
[2025-07-10 14:36] LABS: Specific Gravity, Urine 1.038 (1.005-1.030)
[2025-07-10 14:39] LABS: Hematocrit 32.0 % (36-47); Hemoglobin 10.40 g/dL (11.27-16.99); Mean Corpuscular HGB Conc 32.5 g/dL (30-55); Mean Corpuscular Hemoglobin 29.0 pg (27-33); Mean Corpuscular Volume 89.1 fl (85-98); Nucleated Red Blood Cells % 0 %; Platelet Count 234 10^3/cmm (157-399); Red Blood Count 3.59 10^6/uL (3.85-5.65); White Blood Count 9.44 10^3/uL (3.29-11.43)
[2025-07-10 14:48] LABS: Alanine Aminotransferase 27 U/L (0-33); Albumin Level 3.4 g/dL (3.5-5.2); Alkaline Phosphatase 154 U/L (35-105); Anion Gap 16.8 (5-19); Aspartate Amino Transferase 26 U/L (0-32); Blood Urea Nitrogen 13 mg/dL (6-20); Calcium 9.2 mg/dL (8.5-10.5); Carbon Dioxide 20 mmol/L (22-29); Chloride 104 mmol/L (98-107); Creatinine Clr Calc Pharmacy 99.1517; Globulin 3.8 g/dL (1.3-4.6); Glucose 82 mg/dL (65-115); Osmolality Calculated 283 mOsm/kg (285-295); Potassium 3.8 mmol/L (3.5-5.1); Sodium 137 mmol/L (136-145); Total Protein 7.2 g/dL (6.6-8.7)
[2025-07-10 14:50] LABS: Respiratory Syncytial Virus Ce NEGATIVE (Negative); SARS-CoV-2 PCR NEGATIVE (Negative)
[2025-07-10] MEDS: ondansetron 2 mg/ML SDV 2 mL 4 MG IVP (15:15)
[2025-07-10 16:52] VITALS: BP 112/81; PULSE 64; O2SAT 97
== END 2025-07-10 16:54 | disposition home or self-care (01) ==
PROVIDERS: Emergency Provider Emergency Medicine; PCP Family Medicine
DX: R51.9 Headache, unspecified (principal); E86.0 Dehydration; Z11.52 Encounter for screening for COVID-19; F17.290 Nicotine dependence, other tobacco product, uncomplicated; F17.210 Nicotine dependence, cigarettes, uncomplicated
CPT/HCPCS: 36415; 80053; 81001; 85025; 87637; 96361; 96374; 96375; 99284; J1885; J2405; J7030